=== PATIENT | female | born 1960 | race Caucasian/White ===

== ENCOUNTER 2017-01-11 19:44 | Emergency (ER) | payer SELFPAY ==
[2017-01-11 20:19] LABS: #Basophils 0.1 thou/uL (0.0-0.2); #Lymphocytes 3.2 thou/uL (1.20-3.40); #Monocytes 0.4 thou/uL (0.11-0.59); #Neutrophils 5.2 thou/uL (1.40-6.50); %Basophils 1.2 % (0.0-1.0); %Eosinophils 0.5 % (0.0-10.0); %Lymphocytes 35.6 % (21.0-51.0); %Monocytes 4.4 % (0.0-10.0); Hematocrit 43.5 % (36.0-47.0); Mean Platelet Volume 6.2 fL (7.4-10.4); Red Blood Cell (RBC) Count 4.42 mill/uL (4.20-5.40); White Blood Cell (WBC) Count 8.9 thou/uL (4.8-10.8)
[2017-01-11 20:41] LABS: Acetaminophen Less than 6.0 mcg/mL (10.0-30.0); Salicylate Less than 8.0 mg/dL (15.0-30.0)
[2017-01-11 20:45] LABS: ALT (SGPT) 13 U/L (8-55); AST (SGOT) 22 U/L (5-34); Alkaline Phosphatase 68 U/L (40-150); Anion Gap 22 mmol/L (10-20); BUN (Urea Nitrogen) 16 mg/dL (9.8-20.1); Bilirubin, Total 0.5 mg/dL (0.2-1.2); Calc. Creatinine Clearance 0 mL/min (70-130); Calcium 9.3 mg/dL (7.8-10.44); Carbon Dioxide 24 mmol/L (22-29); Chloride 91 mmol/L (98-107); Estimated GFR-MDRD Greater than 90; Globulin 3.2 g/dL (2.4-3.5); Lipase 30 U/L (8-78); Protein, Total 7.4 g/dL (6.0-8.3)
[2017-01-11] MEDS ORDERED: Ondansetron HCl/PF 4 MG/2 ML Vial ONE (21:11)
[2017-01-12] MEDS ORDERED: Ondansetron HCl/PF 4 MG/2 ML Vial ONE ×3 (02:38→06:22)
[2017-01-12] MEDS ORDERED: Lorazepam 2 MG/ML VIAL ONE (06:22)
[2017-01-12 07:56] LABS: Bilirubin Negative (Negative); Blood, Urine Trace (Negative); Glucose, Urine (Dipstick) Negative (Negative); Ketone, Urine Trace mg/dL (Negative); Nitrite Positive (Negative); Protein, Urine (Dipstick) Negative (Neg-Trace)
[2017-01-12 08:04] LABS: Bacteria/HPF 4+ HPF (None Seen); Hyaline Casts/LPF 0-3 HYALINE CAST LPF (0-3 Hyaline); RBC/HPF 0-3 HPF (0-3); Squamous Epithelial None Seen HPF (0-3)
[2017-01-12 08:14] LABS: Yeast-All Forms None Seen HPF (None Seen)
[2017-01-12] MEDS ORDERED: Ciprofloxacin 500 MG TAB ONE (08:17)
[2017-01-12 08:32] LABS: Amphetamine Not Detected (NotDetected); Methadone Not Detected (NotDetected); Methamphetamine Not Detected (NotDetected)
== END 2017-01-11 23:59 | disposition home or self-care (01) ==
LOC: ERS 19:44
DX: F10.129 Alcohol abuse with intoxication, unspecified (principal); K29.70 Gastritis, unspecified, without bleeding; I10 Essential (primary) hypertension; F41.9 Anxiety disorder, unspecified; F32.9 Major depressive disorder, single episode, unspecified; Y90.0 Blood alcohol level of less than 20 mg/100 ml; Z79.899 Other long term (current) drug therapy
CPT/HCPCS: 36415; 80053; 80306; 80307; 81003; 81015; 82550; 83690; 85025; 93005; 96374; 96375; 96376; J2405

== ENCOUNTER 2017-04-22 09:06 | Inpatient (IN) | payer SELFPAY ==
[2017-04-22 09:48] LABS: #Basophils 0.1 thou/uL (0.0-0.2); #Lymphocytes 1.4 thou/uL (1.20-3.40); #Monocytes 0.1 thou/uL (0.11-0.59); %Basophils 0.8 % (0.0-1.0); %Eosinophils 0.1 % (0.0-10.0); %Lymphocytes 18.1 % (21.0-51.0); %Monocytes 1.4 % (0.0-10.0); %Neutrophils 79.6 % (42.0-75.0); Hemoglobin 14.3 g/dL (12.0-16.0); Mean Corpuscular Hemoglobin 34.7 pg (27.0-31.0); Mean Platelet Volume 6.2 fL (7.4-10.4); Platelet Count 391 thou/uL (130-400); Red Blood Cell (RBC) Count 4.12 mill/uL (4.20-5.40); White Blood Cell (WBC) Count 7.5 thou/uL (4.8-10.8)
[2017-04-22 10:05] LABS: ALT (SGPT) 12 U/L (8-55); AST (SGOT) 23 U/L (5-34); Albumin 4.6 g/dL (3.5-5.0); Alcohol 41 mg/dL (Less than 10); Alkaline Phosphatase 84 U/L (40-150); Anion Gap 27 mmol/L (10-20); BUN (Urea Nitrogen) 5 mg/dL (9.8-20.1); Bilirubin, Total 0.9 mg/dL (0.2-1.2); Calc. Creatinine Clearance 0 mL/min (70-130); Calcium 10.2 mg/dL (7.8-10.44); Carbon Dioxide 17 mmol/L (22-29); Chloride 94 mmol/L (98-107); Estimated GFR-MDRD Greater than 90; Globulin 3.2 g/dL (2.4-3.5); Glucose 134 mg/dL (70-105); Potassium 3.8 mmol/L (3.5-5.1); Protein, Total 7.8 g/dL (6.0-8.3); Sodium 134 mmol/L (136-145)
[2017-04-22] MEDS ORDERED: Lorazepam 2 MG/ML VIAL ONE ×2 (11:30→16:33)
[2017-04-22] MEDS ORDERED: ISOVUE-370 76%-LOCM 1 ML ONE (11:41)
[2017-04-22] MEDS ORDERED: Multivitamins, Adult 10 ML, Thiamine HCl 100 MG, Folic Acid 1 MG in Dextrose 5 %-0.45 %... IV ONE (12:00)
[2017-04-22 12:44] LABS: INR-International Normal Ratio 1.1; PTT 27.5 SEC (22.9-36.1); Prothrombin Time 14.4 SEC (12.0-14.7)
[2017-04-22 13:03] LABS: CKMB 0.8 ng/mL (0-6.6); Troponin I Less than 0.010 ng/mL (< 0.028)
[2017-04-22] MEDS ORDERED: Promethazine HCl 25 MG/ML VIAL ONE (13:08)
--- NOTE | 2017-04-22 13:13 | CT ---
CT ABDOMEN AND PELVIS WITH IV CONTRAST: INDICATIONS: History of alcohol withdrawal, possible pancreatitis, and vaginal bleeding. FINDINGS: The lung bases are clear. There is mild fatty infiltration of the liver. The visualized pancreas appears within normal limits. There are stable calcifications seen near the uncinate process, which may reflect sequela of prior pancreatitis. The kidneys and spleen appear within normal limits. No free fluid is evident. There is a circumaortic left renal vein. Unopacified large and small bowel appear unremarkable. There is no evidence of obstruction. The xiang endix is not definitely visualized; however, there are no secondary signs for appendicitis. There is circumferential thickening involving the cervix, with a large hypodense mass seen involving the entirety of the uterus. Findings are suspicious for possible malignancy. No enlarged lymph nodes are evident. There is scattered degenerative and osteoarthritic change. There is some osseous necrosis involving the right femoral head without evidence of subchondral collapse. IMPRESSION: 1. Hypodense lesion involving the cervix with a prominent heterogeneous mass involving the near enti rety of the uterus. Findings are suspicious for possible cervical or endometrial malignancy. Recomm end correlation with direct visualization and consideration for cervical or endometrial biopsy. Pelv ic ultrasound may be helpful for improved characterization. 2. No CT evidence to suggest active pancreatitis. There are stable calcifications within the pancre atic head, which may reflect sequela of chronic pancreatitis. 3. Mild fatty infiltration of the liver. 4. Small hiatal hernia. 5. 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 CODE T POS: [facility]
[2017-04-22] MEDS ORDERED: Dextrose 50% Abboject 50 ML SYRINGE ONE (13:28)
[2017-04-22] MEDS ORDERED: chlordiazePOXIDE HCl 25 MG CAP ONE (14:11)
[2017-04-22 14:19] LABS: Bilirubin Negative (Negative); Blood, Urine Large (Negative); Clarity CLEAR (Clear); Glucose, Urine (Dipstick) 250 mg/dL (Negative); Leukocyte Small (Negative); Nitrite Negative (Negative); Protein, Urine (Dipstick) Negative (Neg-Trace); Specific Gravity, Urine 1.023 (1.002-1.036); Urobilinogen 0.2 mg/dL (0.2-1.0); pH, Urine 7.5 (5.0-9.0)
[2017-04-22 14:20] LABS: Bacteria/HPF None Seen HPF (None Seen); Hyaline Casts/LPF 0-3 HYALINE CAST LPF (0-3 Hyaline); RBC/HPF GREATER THAN 50-TNTC HPF (0-3); Squamous Epithelial None Seen HPF (0-3); WBC/HPF 21-50 HPF (0-3)
[2017-04-22] MEDS ORDERED: Ondansetron ODT 4 MG TAB PO PRN (17:10)
[2017-04-22] MEDS ORDERED: Ondansetron HCl/PF 4 MG/2 ML Vial IVP PRN (17:10)
[2017-04-22] MEDS ORDERED: Lorazepam 1 MG TAB PO PRN (17:10)
[2017-04-22] MEDS ORDERED: hydrALAZINE 20 MG/ML VIAL SLOW IVP PRN (17:49)
[2017-04-22] MEDS ORDERED: Diazepam 5 MG TAB PO PRN (18:10)
[2017-04-22] MEDS ORDERED: Diazepam 5 MG TAB PO SCH (18:15)
[2017-04-22] MEDS ORDERED: Thiamine HCl 200 MG/2 ML VIAL IM SCH (18:15)
[2017-04-22 20:19] LABS: Medtox Reader # READER 4
[2017-04-22 20:20] LABS: Amphetamine Not Detected (NotDetected); Barbiturates Screen Not Detected (NotDetected); Benzodiazepine Screen Detected (NotDetected); Cocaine Metabolite Screen Not Detected (NotDetected); Medtox Control Line Valid? VALID (VALID); Methadone Not Detected (NotDetected); Methamphetamine Not Detected (NotDetected); Opiate Screen Not Detected (NotDetected); Oxycodone Screen Not Detected (NotDetected); Phencyclidine (PCP) Not Detected (NotDetected); THC/Cannabinoid Screen Not Detected (NotDetected); Tricyclic Screen Not Detected (NotDetected)
--- NOTE | 2017-04-22 21:03 | RAD ---
LEFT HIP TWO VIEWS 04/22/17 HISTORY: CT evidence of femoral head necrosis. COMPARISON: None. CORRELATION: CT 04/22/17. FINDINGS: Two views of the left hip are unremarkable. Cortical margin is maintained. Hip joint space is preserv ed. IMPRESSION: Unremarkable two views left hip. Note, the finding on the previous CT was in the right femoral head and not the left femoral head. Bet ter interrogation with MRI is recommended. POS: [facility]
--- NOTE | 2017-04-22 21:49 | RAD ---
TWO VIEWS RIGHT HIP 04/22/17 HISTORY: Possible necrosis noted on recent CT. COMPARISON: None. CORRELATION: CT 04/22/17. FINDINGS/IMPRESSION: Contour of the femoral head is maintained and the joint spaces is preserved. Recent CT finding is dif ficult to assess radiographically. Nonemergent MRI can be performed. POS: [facility]
[2017-04-22] MEDS: Sodium Chloride 0.9% 1,000 ML IV SCH ×2 (23:57)
--- NOTE | 2017-04-23 01:02 | HP-2 ---
DATE OF ADMISSION: 04/22/2017 CODE STATUS: FULL. PRIMARY CARE PHYSICIAN: Rosalio hunter. ATTENDING: Asher Crews M.D. RESIDENT: Maicol Fuentes D.O. HISTORIAN: Patient. CHIEF COMPLAINT: Vaginal bleeding. HISTORY OF PRESENT ILLNESS: The patient presents to the emergency room with complaint of 2 days of h eavy vaginal bleeding. She has been menopausal for approximately 10 years with no prior history of s potting or bleeding. There was no associated cramping until this afternoon. The patient denies dizz iness or weakness associated with the bleeding and states that she bleeding enough to fill at least 1 pad per hour. Additionally, she complains of 4 days of nausea and vomiting with diarrhea. Neither the vomitus or diarrhea is bloody. She denies associated symptoms such as malaise, fever, or any oth er known inciting causes. Additionally, the patient is an alcoholic. She does state that she typica lly drinks a pint of whiskey per day. She has been approximately 24 hours since her last drink. She has detoxed from alcohol before and denies history of seizure during previous detoxification. In e emergency room, the patient was given Librium and Ativan to control withdrawal symptoms. PAST MEDICAL HISTORY: Includes hypertension, alcohol abuse. PAST SURGICAL HISTORY: None. ALLERGIES: No known drug allergies. MEDICATIONS: Lisinopril 20 mg daily. FAMILY HISTORY: Maternal, breast cancer; paternal, unknown. SOCIAL HISTORY: The patient does not smoke. She drinks approximately 1 pint of whiskey per day. Dr andrade: None. REVIEW OF SYSTEMS: General: Denies fever, chills, change in appetite, night sweats, fatigue. HEENT : Denies any vision change or eye pain, nasal congestion. Respiratory: Denies any cough, congestio n, shortness of breath. Cardiovascular: Denies any chest pain, palpitations. Gastrointestinal: Ad mits to nausea, vomiting, diarrhea without blood. Genitourinary: Denies incontinence, dysuria. Adm its to heavy vaginal bleeding, bright red blood. Skin: No rashes or lesions. Musculoskeletal: Den ies any pain or tenderness. Neurologic: Denies any weakness or numbness. Psychiatric: Denies anxi ety or depression. PHYSICAL EXAMINATION: VITAL SIGNS: Blood pressure 178/111, pulse 100, respiratory rate 18, T-max 98.2, pulse ox 94% on anila m air, current weight approximately 50 kilograms. GENERAL: The patient is alert and oriented x3, in no apparent distress, is well-nourished, and appro priately interactive. HEENT: PERRLA, EOMI. Conjunctivae within normal limits. No scleral icterus. NECK: Supple and without lymphadenopathy. CARDIOVASCULAR: Tachycardic without murmur. RESPIRATORY: Normal effort. Clear to auscultation bilateral without retractions. SKIN: Warm and dry. There is no jaundice. Loss of turgor. ABDOMEN: Soft and tender. Liver is not palpable. Bowel sounds in all 4 quadrants. No masses or di stention. EXTREMITIES: No clubbing or cyanosis. NEUROLOGIC: No focal neurological deficits. Cranial nerves are grossly intact. LABORATORY DATA: CBC: Hemoglobin 14.3, hematocrit 40.8, white count 7.5, platelets 391, MCV is 94, 79.6% neutrophils. CMP: Sodium 134, potassium 3.4, chloride 94, bicarbonate 17, BUN is 5, creatinin e 0.64, glucose 134, calcium 10.2, total serum protein 7.8, albumin 4.6, total bilirubin 0.9, AST 23, ALT 12, alkaline phosphatase 84. PT 14.4, INR 1.1, PTT 27.1. CK-MB 0.8. Troponins are negative. Lipase is 25. TSH is 1.94. UA specific gravity 1.023, blood large, protein negative, leukocyte jane rase small, nitrites negative, ketones negative, glucose 250, rbc's too numerous to count, wbc's 21 t o 50, bacteria negative. EKG shows sinus tachycardia. IMAGING: CT of pelvis shows a large cervical and uterine mass with possible malignancy, small calcif ication of the pancreas without obvious pancreatitis, osteonecrosis of the right femoral head, hiatal hernia and a fatty infiltrated liver. ASSESSMENT AND PLAN: 1. Alcohol withdrawal, ZENON protocol. The patient is currently given a banana bag in the ER, do p.r. n. Ativan while in ZENON protocol. 2. Dehydration. This is likely secondary to her diarrhea and vomiting. After banana bag, IVF jailyn l saline at 150. Repeat CBC in the morning. Given the patient's vaginal blood loss, hemoglobin 14.3 is likely to be concentrated, her actual hemoglobin is likely to be considerably lower after she is appropriately fluid resuscitated. 3. Tachycardia secondary to volume status, observe on tele, we will get fluid resuscitation. 4. Vaginal bleeding with mass. Consider GUEST SERVICE MANAGER consult. Repeat CBC in the morning. This is likely wi ll need to be worked up outpatient. 5. Hypertensive urgency. The patient is asymptomatic. Give her home lisinopril and hydralazine p.r .n.
[2017-04-23 02:13] VITALS: BMI 20.5
[2017-04-23] MEDS ORDERED: Diazepam 5 MG TAB PO PRN (04:00)
[2017-04-23 05:23] LABS: #Basophils 0.1 thou/uL (0.0-0.2); #Lymphocytes 1.5 thou/uL (1.20-3.40); #Monocytes 0.4 thou/uL (0.11-0.59); #Neutrophils 5.7 thou/uL (1.40-6.50); %Basophils 0.7 % (0.0-1.0); %Eosinophils 0.5 % (0.0-10.0); %Lymphocytes 19.1 % (21.0-51.0); %Monocytes 5.2 % (0.0-10.0); %Neutrophils 74.5 % (42.0-75.0); Hemoglobin 13.7 g/dL (12.0-16.0); Mean Corpuscular HGB CONC 33.8 g/dL (32.0-36.0); Mean Corpuscular Hemoglobin 34.1 pg (27.0-31.0); Mean Platelet Volume 6.3 fL (7.4-10.4); Platelet Count 296 thou/uL (130-400); RBC Distribution Width 12.3 % (11.5-14.5); White Blood Cell (WBC) Count 7.6 thou/uL (4.8-10.8)
[2017-04-23 05:33] LABS: ALT (SGPT) 11 U/L (8-55); AST (SGOT) 19 U/L (5-34); Albumin 4.2 g/dL (3.5-5.0); Alkaline Phosphatase 75 U/L (40-150); Anion Gap 13 mmol/L (10-20); BUN (Urea Nitrogen) 7 mg/dL (9.8-20.1); Bilirubin, Total 1.3 mg/dL (0.2-1.2); Calc. Creatinine Clearance 77 mL/min (70-130); Calcium 9.7 mg/dL (7.8-10.44); Carbon Dioxide 27 mmol/L (22-29); Chloride 96 mmol/L (98-107); Estimated GFR-MDRD Greater than 90; Globulin 3.1 g/dL (2.4-3.5); Glucose 96 mg/dL (70-105); Potassium 3.3 mmol/L (3.5-5.1); Protein, Total 7.3 g/dL (6.0-8.3); Sodium 133 mmol/L (136-145)
[2017-04-23] MEDS: Sodium Chloride 0.9% 1,000 ML IV SCH ×3 (05:56→21:59)
--- NOTE | 2017-04-23 06:14 | PDOC.FM ---
- Subjective Subjective: Jazmine Spear is doing well this morning, she has no complaints other than being tired this morning, she denies any hallucinations, vision changes, n/v/d/abd pain, seizures. - Objective MAR Reviewed: Yes Vital Signs & Weight: Vital Signs (12 hours) Temp Pulse Resp BP Pulse Ox 04/23/17 05:30 71 156/94 H 04/23/17 04:45 97.9 F 92 16 176/119 H 97 04/23/17 02:00 133/84 04/22/17 20:53 98.0 F 105 H 18 171/114 H 97 04/22/17 20:50 98.0 F 105 H 18 97 Weight Weight 52.526 kg Result Diagrams: 04/23/17 04:38 04/23/17 04:38 Radiology Reviewed by me: Yes <Luis E Duarte - Last Filed: 04/23/17 09:44> - Objective Vital Signs & Weight: Vital Signs (12 hours) Temp Pulse Pulse Pulse Resp BP BP 04/23/17 11:52 98.4 F 109 H 16 04/23/17 09:15 88 93 183/119 H 04/23/17 08:58 184/119 H 04/23/17 07:56 97.3 F L 80 20 04/23/17 05:30 71 04/23/17 04:45 97.9 F 92 16 04/23/17 02:00 BP BP Pulse Ox 04/23/17 11:52 153/100 H 98 04/23/17 09:15 183/121 H 04/23/17 08:58 04/23/17 07:56 184/119 H 98 04/23/17 05:30 156/94 H 04/23/17 04:45 176/119 H 97 04/23/17 02:00 133/84 Weight Weight 52.526 kg I&O: 04/22/17 04/23/17 04/24/17 06:59 06:59 06:59 Intake Total 812 Balance 812 Result Diagrams: 04/23/17 04:38 04/23/17 04:38 <Ivette Fitzgerald - Last Filed: 04/23/17 13:01> Phys Exam - Physical Examination Constitutional: NAD HEENT: moist MMs, sclera anicteric Neck: supple, full ROM Respiratory: no wheezing, no rales, no rhonchi, clear to auscultation bilateral Cardiovascular: RRR, no significant murmur, no rub Gastrointestinal: soft, non-tender, no distention Musculoskeletal: no edema Neurological: non-focal, moves all 4 limbs Psychiatric: normal affect, A&O x 3 <Luis E Duarte - Last Filed: 04/23/17 09:44> Dx/Plan (1) Alcohol withdrawal Code(s): F10.239 - ALCOHOL DEPENDENCE WITH WITHDRAWAL, UNSPECIFIED Status: Acute Plan: hx of 4 days of nausea/vomiting and diarrhea pt endorses drinking pint of whiskey a day, on admission it had been approximately 24 hours since last drink She has a history of detoxification from alcohol in the past and did not have any seizures/hallucinosis -pt received ativan and librium in the ER to control withdrawal symptoms Plan: Continue ASE protocol, patient received banana bag Continue IVFs 150 ml/hr, monitor vitals and symptoms closely (2) Dehydration Code(s): E86.0 - DEHYDRATION Status: Acute Plan: Likely secondary to withdrawal symptoms Continue IVFs NS at 150 mL/hr (3) Abnormal uterine bleeding Code(s): N93.9 - ABNORMAL UTERINE AND VAGINAL BLEEDING, UNSPECIFIED Status: Acute Plan: Hemoglobin is 13.7 this morning, down for 14.3 Will continue to monitor Hb and bleeding -May need OP Airbrush Painter Work-up (4) Hypertensive urgency Code(s): I16.0 - HYPERTENSIVE URGENCY Status: Acute Plan: Will continue Home dose of Lisinopril with PRN hydralazine for BPs over 180 systolic BP this morning is 156/94 <Luis E Daurte - Last Filed: 04/23/17 09:44> Attending Addendum - Attending Addendum I personally evaluated the patient and discussed the management with Dr. Duarte. I agree with the History, Examination, Assessment and Plan documented above with any addition or exceptions noted below. The patient continues to have vaginal bleeding will consult gynecology for evaluation of uterine mass. Check H/H this afternoon. Regarding alcohol withdrawal, patient is not having tremors, hallucinations, seizures. Continue to monitor. <Ivette Fitzgerald - Last Filed: 04/23/17 13:01>
[2017-04-23] MEDS ORDERED: Potassium Chloride 20 MEQ TAB PO SCH (06:15)
--- NOTE | 2017-04-23 08:21 | ULT ---
GALLBLADDER ULTRASOUND: History: Right upper quadrant pain, ethanol abuse. FINDINGS: Real-time images of the right upper quadrant demonstrates a normal appearing gallbladder. There is so me minimal sludge present but no stones. Common duct and immediate extrahepatic portion is slightly d ilated at 6-7 mm. No intrahepatic ductal dilatation is noted. Liver parenchyma is of mild increased e chogenicity. Right kidney is normal in size and not obstructed. The pancreas is partially obscured. IMPRESSION: Suggestion of some fatty changes of the liver with a small amount of gallbladder sludge. The common d uct appears borderline in size. POS: [facility]
[2017-04-23] MEDS: Folic Acid 1 MG TAB PO SCH (08:58)
[2017-04-23] MEDS: Multivitamin W/ Minerals 1 TAB PO SCH (08:58)
[2017-04-23] MEDS: Magnesium Oxide 400 MG TAB PO SCH (08:58)
[2017-04-23] MEDS: Lisinopril 10 MG TAB PO SCH ×2 (08:58→21:59)
[2017-04-23] MEDS ORDERED: Enoxaparin Sodium 40 MG/0.4 ML SYRINGE SC SCH (09:00)
--- NOTE | 2017-04-23 11:19 | ULT ---
TRANSABDOMINAL AND TRANSVAGINAL PELVIC ULTRASOUND: HISTORY: Vaginal bleeding. Dysfunctional uterine bleeding. CORRELATION: Correlation is made with a CT scan from 04/22/2017. FINDINGS: The uterus measures 10 x 6.7 x 6.8 cm. The endometrium measures 1.4 cm. There is a heterogeneous co mplex mass in the uterus, measuring about 7.7 cm, with solid and cystic components, corresponding to the finding on the CT scan. The ovaries are not visualized. No free fluid is seen. IMPRESSION: Large complex mass in the uterus. The differential diagnosis includes a degenerating fibroid versus malignancy. A gynecologic consultation is recommended. POS: [facility]
--- NOTE | 2017-04-23 12:28 | PDOC.EVN ---
Event Note - Event Note Event Note: OBGYN Faculty Consultation Requesting MD: Luis E Mayer Reason for consult: Postmenopausal vaginal bleed I was just contacted by phone by the resident field crop harvest contractor regarding Ms Spear (@[id number]) . This patient was admotted 04/22/17 with ETOH dependancy/withdrawel symptoms who alos was noted to have vaginal bleeding. I was consulted for the vag bleed history. I reviewed the case with Dr Mayer in detail. Past Medical HX: Hypertension Social: ETOH=whisky use, no tobacco. No drug use. Meds: Lisinopril QD (20mg) Allergies: None Lab data: Last hemoglobin: 13.7 (was 14.3), normal platelets at 296 LFTS were normal UA with glucose noted STUDIES: CT and pelvic ultrasound both with findings of a 7cm complex uterine mass suspicious for degenerating fibroid vs other. Sono with ES of 1.4cm. Physical exam: pending arrival to 2SE (CABLE INSTALLATION TECHNICIAN floor) procedure room for speculum examination. Assessment: Postmenopausal VB, ETOH withdrawel (RX with librium/ativan). Plan: 1. TVU/CT pelvis done. Findings as per HPI: complex questionable uterine mass vs cervical 2. Exam via speculum pending on 2SE 3. Will attempt EMB unless gross cervical disease noted. I contacted the ER to see if they had a pap container (thin prep) but they do not. If gross cervical disease noted, will need cervical biopsy. 4. Awaiting patient arrival to 2SE. 5. Provera 10mg po TID x 2 days, then BID for 7 days to decrease VB for now. 6. No need to transfuse at this time. We will hold off on IV estrogen as etiology of VB not clear with thickened ES on sono.
--- NOTE | 2017-04-23 13:29 | PDOC.EVN ---
Event Note - Event Note Event Note: PROCEDURE NOTE (EMB) Taken at 1230: After informed consent, patient taken to 2SE procedure room for EMB. EMB done under sterile technique after external cervical swabbing with betadine swabs. Dr Mayer and Richard performed EMD X 4 passess with tissue seen in jar. Sounds to 7-8cm. No gross cervical lesions seen. Blood in vagina abpout 5ml pre-EMB noted. No complications. Patient tolerated procedure very well. Time for BX: 5 minutes. Sedation: none No vag packs left in. Order placed for tissue request. NOTE: patient states she had a pap 1.5 mos ago at [facility] We will try to get that report from them. Plan: provera po as ordered/recommended (10,mg TID x 2 days, then BIB x 7 days) .
[2017-04-23] MEDS: medroxyPROGESTERone Acetate 5 MG TAB PO SCH ×2 (15:36→21:59)
[2017-04-24 01:23] LABS: Chlamydia by PCR Not Detected (NotDetected); GC by PCR Not Detected (NotDetected)
[2017-04-24] MEDS: Sodium Chloride 0.9% 1,000 ML IV SCH (05:39)
--- NOTE | 2017-04-24 05:45 | PDOC.EVN ---
Event Note - Event Note Event Note: Skid Adzer note: EMB pending. Will await results and/or follow as outpatient.
--- NOTE | 2017-04-24 06:00 | PDOC.FM ---
- Subjective Subjective: Jazmine Spear is doing well this morning, seen at bedside. She states that she is doing alright, has continued to having vaginal bleeding. She denies any headache, vision changes, hallucinosis, chest pain, dyspnea, n/v/abd pain, dysuria. Patient does express concern that she is too weak to perform ADLs at home, as she lives by herself. - Objective MAR Reviewed: Yes Vital Signs & Weight: Vital Signs (12 hours) Temp Pulse Resp BP BP Pulse Ox 04/24/17 04:27 98.3 F 76 14 147/95 H 96 04/24/17 00:06 98.3 F 84 20 160/106 H 96 04/23/17 21:59 153/98 H 04/23/17 20:14 98.3 F 84 20 98 04/23/17 19:47 98.8 F 92 16 153/98 H 98 Weight Weight 52.526 kg I&O: 04/22/17 04/23/17 04/24/17 06:59 06:59 06:59 Intake Total 2967 Balance 2967 Result Diagrams: 04/24/17 06:09 04/24/17 06:09 <Luis E Duarte - Last Filed: 04/24/17 09:04> - Objective Vital Signs & Weight: Vital Signs (12 hours) Temp Pulse Pulse Pulse Resp BP BP 04/24/17 11:40 98.6 F 100 16 04/24/17 11:03 105 H 105 H 161/102 H 04/24/17 09:42 151/100 H 04/24/17 08:00 98.4 F 70 16 04/24/17 07:33 98.4 F 70 16 04/24/17 04:27 98.3 F 76 14 BP BP Pulse Ox 04/24/17 11:40 149/94 H 97 04/24/17 11:03 186/107 H 04/24/17 09:42 04/24/17 08:00 99 04/24/17 07:33 151/100 H 99 04/24/17 04:27 147/95 H 96 Weight Weight 52.526 kg I&O: 04/23/17 04/24/17 04/25/17 06:59 06:59 06:59 Intake Total 2967 Balance 2967 Result Diagrams: 04/24/17 06:09 04/24/17 06:09 <LiaIvette taylor - Last Filed: 04/24/17 12:58> Phys Exam - Physical Examination Constitutional: NAD HEENT: moist MMs, sclera anicteric Neck: no JVD, supple, full ROM Respiratory: no wheezing, no rales, no rhonchi, clear to auscultation bilateral Cardiovascular: RRR, no significant murmur, no rub Gastrointestinal: soft, non-tender, no distention Musculoskeletal: no edema Neurological: non-focal, moves all 4 limbs Psychiatric: A&O x 3 Deviation from normal: flat affect, no change from prior exam <Luis E Duarte - Last Filed: 04/24/17 09:04> Dx/Plan (1) Alcohol withdrawal Code(s): F10.239 - ALCOHOL DEPENDENCE WITH WITHDRAWAL, UNSPECIFIED Status: Acute Plan: hx of 4 days of nausea/vomiting and diarrhea pt endorses drinking pint of whiskey a day, on admission it had been approximately 24 hours since last drink She has a history of detoxification from alcohol in the past and did not have any seizures/hallucinosis -pt received ativan and librium in the ER to control withdrawal symptoms 04/23/17 Continue ASE protocol, patient received banana bag Continue IVFs 150 ml/hr, monitor vitals and symptoms closely 04/24/17 Patient has not experienced any symptoms of DTs or withdrawal hallucinosis According to patient, it has been >4 days since her last alcoholic beverage Likely ready for discharge today with close follow up with applications programmer for post menopausal uterine bleeding (2) Dehydration Code(s): E86.0 - DEHYDRATION Status: Acute Plan: Likely secondary to withdrawal symptoms Clinically, patient is euvolemic, will stop IVFs this morning as patient is tolerating PO (3) Abnormal uterine bleeding Code(s): N93.9 - ABNORMAL UTERINE AND VAGINAL BLEEDING, UNSPECIFIED Status: Acute Plan: Hemoglobin is 13.7 this morning, down for 14.3 Will continue to monitor Hb and bleeding, repeat CBC this morning sleep lab technician hospitalist consulted yesterday (Richard), appreciate recs -EMB performed yesterday (Gerald/Richard), path results pending -requesting pap records from [facility] -per CUTTER OPERATOR recs, Provera 10 mg TID for 2 days total followed by Provera 10 mg BID for 5 days (4) Hypertensive urgency Code(s): I16.0 - HYPERTENSIVE URGENCY Status: Acute Plan: Will continue Home dose of Lisinopril with PRN hydralazine for BPs over 180 systolic BP this morning is 147/95, increasing home dose of lisinopril to 20 mg BID - Plan Plan: Reevaluation by PT/OT, as patient feels she is too weak to go back home and perform her normal ADLs, encourage ambulation, consult walking program. Patient will need follow up with [facility] and clinical esthetician <Luis E Duarte - Last Filed: 04/24/17 09:04> Attending Addendum - Attending Addendum I personally evaluated the patient and discussed the management with Dr. Duarte. I agree with the History, Examination, Assessment and Plan documented above with any addition or exceptions noted below. The patient is asymptomatic from an alcohol withdrawal standpoint. She is having worsening diarrhea and has been on antibiotics recently. Will check stool studies. Pt still has vaginal bleeding which she states is not much improved. Continue current management. Monitor h/h. Continue provera. Awaiting biopsy results. <Ivette Fitzgerald - Last Filed: 04/24/17 12:58>
[2017-04-24 06:22] LABS: #Eosinphils 0.1 thou/uL (0.0-0.7); #Lymphocytes 1.2 thou/uL (1.20-3.40); #Monocytes 0.3 thou/uL (0.11-0.59); #Neutrophils 3.9 thou/uL (1.40-6.50); %Basophils 0.6 % (0.0-1.0); %Lymphocytes 21.2 % (21.0-51.0); %Monocytes 5.6 % (0.0-10.0); %Neutrophils 71.6 % (42.0-75.0); Hemoglobin 12.5 g/dL (12.0-16.0); Mean Corpuscular HGB CONC 33.8 g/dL (32.0-36.0); Mean Corpuscular Hemoglobin 34.6 pg (27.0-31.0); Mean Platelet Volume 6.5 fL (7.4-10.4); Platelet Count 231 thou/uL (130-400); RBC Distribution Width 12.2 % (11.5-14.5); Red Blood Cell (RBC) Count 3.62 mill/uL (4.20-5.40); White Blood Cell (WBC) Count 5.5 thou/uL (4.8-10.8)
[2017-04-24 06:40] LABS: Anion Gap 12 mmol/L (10-20); BUN (Urea Nitrogen) 7 mg/dL (9.8-20.1); Calc. Creatinine Clearance 81 mL/min (70-130); Calcium 9.3 mg/dL (7.8-10.44); Carbon Dioxide 22 mmol/L (22-29); Chloride 105 mmol/L (98-107); Estimated GFR-MDRD Greater than 90; Glucose 85 mg/dL (70-105); Potassium 3.5 mmol/L (3.5-5.1); Sodium 135 mmol/L (136-145)
--- NOTE | 2017-04-24 08:10 | PDOC.EVN ---
Event Note - Event Note Event Note: Lab check today: Hct 37 this am. Continue provera oral as recommended.
[2017-04-24] MEDS: Lisinopril 20 MG TAB PO SCH ×2 (09:42→21:21)
[2017-04-24] MEDS: Multivitamin W/ Minerals 1 TAB PO SCH (09:43)
[2017-04-24] MEDS: Magnesium Oxide 400 MG TAB PO SCH (09:43)
[2017-04-24] MEDS: medroxyPROGESTERone Acetate 5 MG TAB PO SCH ×3 (09:43→21:22)
[2017-04-24] MEDS: Folic Acid 1 MG TAB PO SCH (09:43)
[2017-04-24] MEDS: Ibuprofen 600 MG TAB PO PRN (21:21)
--- NOTE | 2017-04-25 06:16 | PDOC.FM ---
- Subjective Subjective: Jazmine Spear is doing okay this morning, she denies any acute events overnight. She has no complaints. Vaginal bleeding has decreased. Patient was notified of biopsy results, Endometrial Carcinoma, Grade 2. Expressed importance of seeing a gyncology oncologist soon. Dr. Vergara is [facility] was recommended by Dr. Ramos, bean weigher hospitalist. Questions were answered. - Objective MAR Reviewed: Yes Vital Signs & Weight: Vital Signs (12 hours) Temp Pulse Resp BP BP Pulse Ox 04/25/17 05:45 145/99 H 04/25/17 04:00 98.3 F 75 16 145/99 H 97 04/25/17 00:48 98.4 F 89 16 151/97 H 89 L 04/25/17 00:02 151/97 H 04/24/17 21:21 184/114 H 04/24/17 21:20 98.7 F 92 16 184/117 H 94 L 04/24/17 19:35 98.4 F 89 16 184/117 H 92 L Weight Weight 55.837 kg I&O: 04/23/17 04/24/17 04/25/17 06:59 06:59 06:59 Intake Total 2967 1333 Balance 2967 1333 Result Diagrams: 04/24/17 06:09 04/24/17 06:09 <Luis E Duarte - Last Filed: 04/25/17 12:53> - Objective Vital Signs & Weight: Vital Signs (12 hours) Temp Pulse Resp BP BP Pulse Ox 04/25/17 16:00 167/111 H 04/25/17 15:50 98.3 F 104 H 20 167/111 H 97 04/25/17 12:02 154/105 H 04/25/17 12:00 98.2 F 103 H 20 154/105 H 95 04/25/17 08:05 98.2 F 103 H 20 163/107 H 93 L 04/25/17 07:50 97.4 F L 79 20 163/107 H 93 L Weight Weight 55.837 kg I&O: 04/24/17 04/25/17 04/26/17 06:59 06:59 06:59 Intake Total 2967 1333 840 Balance 2967 1333 840 Result Diagrams: 04/24/17 06:09 04/24/17 06:09 <Ivette Fitzgerald - Last Filed: 04/25/17 19:32> Phys Exam - Physical Examination Constitutional: NAD HEENT: moist MMs, sclera anicteric Neck: no JVD, supple, full ROM Respiratory: no wheezing, no rales, no rhonchi, clear to auscultation bilateral Cardiovascular: RRR, no significant murmur, no rub Gastrointestinal: soft, non-tender, no distention Musculoskeletal: no edema, pulses present Neurological: non-focal, moves all 4 limbs Psychiatric: normal affect, A&O x 3 <GeraldLuis E - Last Filed: 04/25/17 12:53> Dx/Plan (1) Alcohol withdrawal Code(s): F10.239 - ALCOHOL DEPENDENCE WITH WITHDRAWAL, UNSPECIFIED Status: Acute Plan: hx of 4 days of nausea/vomiting and diarrhea pt endorses drinking pint of whiskey a day, on admission it had been approximately 24 hours since last drink She has a history of detoxification from alcohol in the past and did not have any seizures/hallucinosis -pt received ativan and librium in the ER to control withdrawal symptoms 04/23/17 Continue ASE protocol, patient received banana bag Continue IVFs 150 ml/hr, monitor vitals and symptoms closely 04/24/17 Patient has not experienced any symptoms of DTs or withdrawal hallucinosis According to patient, it has been >4 days since her last alcoholic beverage Likely ready for discharge today with close follow up with rate examiner for post menopausal uterine bleeding 04/24/17 Patient has continued to be asymptomatic of DTs or alcoholic withdrawal We are now out of the window for DTs Patient ready for d/c today (2) Dehydration Code(s): E86.0 - DEHYDRATION Status: Resolved Plan: Tolerating PO, resolved (3) Abnormal uterine bleeding Code(s): N93.9 - ABNORMAL UTERINE AND VAGINAL BLEEDING, UNSPECIFIED Status: Acute Plan: photographic hand developer hospitalist consulted (Richard), appreciate recs -EMB performed 04/23/17 (Gerald/Richard), path results revealed Endometrial Carcinoma , grade 2. -[facility]ap [facility] from [facility] -per MANAGER BAKERY recs, Provera 10 mg TID for 2 days total followed by Provera 10 mg BID for 5 days -recommended patient see gynecology oncologist (Dr. Vergara recommended by Dr. Ramos ) (4) Hypertensive urgency Code(s): I16.0 - HYPERTENSIVE URGENCY Status: Acute Plan: Will continue Home dose of Lisinopril with PRN hydralazine for BPs over 180 systolic BP this morning is 145/99, added amlodipine 2.5 mg PO daily to regimen, will monitor - Plan Plan: Patient likely ready for d/c today with close f[facility] <Luis E Duarte - Last Filed: 04/25/17 12:53> Attending Addendum - Attending Addendum I personally evaluated the patient and discussed the management with Dr. Duarte. I agree with the History, Examination, Assessment and Plan documented above with any addition or exceptions noted below. The patient's vaginal bleeding is improved. The patient has no more diarrhea. The patient will be set up for MRI to further evaluate avascular necrosis of the hip noted on admission CT scan. Will likely not d/c today but anticipate discharge tomorrow. Pt's path returned and diagnosis of endometrial cancer has been given to the patient. She will be referred to voltage inspector/onc. <Ivette Fitzgerald - Last Filed: 04/25/17 19:32>
[2017-04-25] MEDS ORDERED: Gadobenate Dimeglumine 529 MG/1 ML (20ML VIAL) ONE (06:22)
[2017-04-25] MEDS ORDERED: Amlodipine 5 MG TAB PO SCH (06:30)
--- NOTE | 2017-04-25 08:10 | PDOC.EVN ---
Event Note - Event Note Event Note: EMB check this AM with endometrial carcinoma (endometriod), Grade 2. I have contacted Dr Mayer (Resident precision filer hand). We will notifiy her this AM and make arrangements for Dr Ambreen Vergara (Supervisor Poultry Hatchery Onc) referral in [place].
--- NOTE | 2017-04-25 08:50 | PDOC.EVN ---
Event Note - Event Note Event Note: Gynecology Consult Follow up At 0840 this AM, patient seen at bedside along with Dr Mayer and the patient's nurse. DX of endometrial CA was relayed to the patient. Grade reviewed with her (grade 2). Need for surgical staging and likely XRT also relayed to her. Chemo option also discussed pending final stage findings. Case management will assist with getting an appointment with Dr Vergara in the [place] or any other [facility] Mgr Onc first available. Questions answered.
[2017-04-25] MEDS: Folic Acid 1 MG TAB PO SCH (10:07)
[2017-04-25] MEDS: Lisinopril 20 MG TAB PO SCH ×2 (10:08→20:46)
[2017-04-25] MEDS: Magnesium Oxide 400 MG TAB PO SCH (10:08)
[2017-04-25] MEDS: medroxyPROGESTERone Acetate 5 MG TAB PO SCH ×3 (10:09→20:47)
[2017-04-25] MEDS: Multivitamin W/ Minerals 1 TAB PO SCH (10:09)
[2017-04-25] MEDS: Ibuprofen 600 MG TAB PO PRN ×2 (10:11→20:47)
--- NOTE | 2017-04-25 14:54 | DIS-2 ---
DATE OF ADMISSION: 04/22/2017 DATE OF DISCHARGE: 04/25/2017 RESIDENT: Luis E Duarte MD ADMITTING ATTENDING: Dr. Asher Crews. DISCHARGE ATTENDING: Dr. Fitzgerald. CONSULTATIONS: COLLECTIONS TECHNICIAN Hospitalist, Dr. Acosta Ramos on 04/23/2017. PROCEDURES: 1. Hip x-ray. Impression: Contour of the femoral head is maintained and the joint space is preserved. Recent CT finding is difficult to assess radiographically, nonemergent MRI can be performed. 2. CT abdomen and pelvis with contrast. Impression: Hypodense lesion involving the cervix with a prominent heterogeneous mass involving the near entirety of the uterus. Findings are suspicious for possible cervical cancer or endometrial malignancy. Recommend correlation with direct visualization and consideration for cervical or endometrial biopsy. Pelvic ultrasound may be helpful for improved characterization. Mild fatty infiltration of the liver, small hiatal hernia, osteonecrosis of the right femoral head without evidence of subchondral collapse. 3. Hip x-ray on 04/22/2017. Impression: Unremarkable two views of left hip. Note, the findings on the previous CTA was in the right femoral head and not the left femoral head, better interrogation with MRI is recommended. 4. Right upper quadrant gallbladder ultrasound. Impression: Some fatty changes of the liver with small amount of gallbladder sludge. Common duct appears borderline in size. 5. Pelvic/transvaginal ultrasound. Impression: Large complex mass in the uterus. 6. MRI of Right Hip: Low grade avascular necrosis of anterior right femoral head. Underlying marrow signal does appear to show some enhancement, therefore could be an area of resolving avascular necrosis. Punctate area of left femoral head suggestive of avascular necrosis without collapse. Gluteus medius tendinosis and partial tearing. Right semimembranosus tendon extensive partial tearing. DIFFERENTIAL DIAGNOSES: Includes degenerating fibroid versus malignancy. PRIMARY DIAGNOSES: 1. Alcohol withdrawal. 2. Postmenopausal bleeding. 3. Dehydration. 4. Tachycardia. 5. Hypertensive urgency. DISCHARGE MEDICATIONS: 1. Lisinopril 10 mg p.o. b.i.d. 2. Provera 10 mg p.o. b.i.d. for 5 days. DISCONTINUED MEDICATIONS: 1. ZENON protocol. 2. Ativan 1 mg p.o. q.4 h. p.r.n. 3. Zofran 4 mg p.o. q.6 h. p.r.n. 4. Lovenox 40 mg subcu. 5. Amlodipine 2.5 mg p.o. 6. Hydralazine 5 mg IV push. 7. Phenergan 25 mg. HISTORY OF PRESENT ILLNESS AND HOSPITAL COURSE: Jazmine Spear is a 57-year -old female with past medical history of alcohol abuse and hypertension, who presented to the ED on 04/22/2017 with complaint of 2 days of heavy vaginal bleeding. She has been postmenopausal for approximately 10 years. No prior history of bleeding. There was no associated cramping until the afternoon of admission. The patient denied any dizziness or weakness associated with bleeding and she was bleeding somewhat so that she had to change pad every hour. She also complains of 4 days of nausea and vomiting with diarrhea, neither the vomitus or diarrhea was bloody. The patient abuses alcohol and she typically drinks a pint of whiskey per day. It has been approximately 24 hours since her last drink and she was wanting to detox from alcohol. She says that she has done this before and denies any problem detoxing or issues with seizures or alcohol withdrawal. In the ED, the patient was given Librium and Ativan to control withdrawal symptoms. On admission, her blood pressure was 178 /111, pulse 100, respiratory rate 18, T-max 98.2, pulse ox 94% on room air. SIGNIFICANT LABORATORY DATA: Included a white count of 7.5, platelets of 391, hemoglobin of 14.3, hematocrit of 40.8, MCV of 94, creatinine 0.64, AST 23, ALT 12, alkaline phosphatase 84. PT 14.4, INR 1.1, PTT 27.1, CK-MB of 0.8. Troponins were negative. TSH was 1.94. UA showed too numerous to count red blood cells, small leukocyte esterase, 21-50 white blood cells, bacteria negative. EKG showed sinus tachycardia. HOSPITAL COURSE: The patient was admitted, put on ASE protocol and symptoms were monitored closely for alcohol withdrawal, hallucinosis, and DTs. The patient never developed any symptoms throughout her admission. Due to the vaginal bleeding, the COLLECTIONS TECHNICIAN hospitalist was consulted and he recommended EMB. Endometrial biopsy was performed by Dr. Duarte and Dr. Ramos and path was sent. It was also recommended that the patient be started on Provera 10 mg t.i.d. for 2 days, followed by Provera 10 mg b.i.d. for 5 days. The patient's bleeding improved over her admission and path results came back on the day of discharge and were read as endometrioid carcinoma FIGO grade 2. The patient was made aware of the diagnosis and one step she would need to go through. Dr. Ramos recommended the patient see Dr. Ambreen Vergara, Gynecology oncologist, in [place]. The patient was not funded. Case management was consulted for assistance and resources. The patient was provided information by case management and given instructions and help the patient to apply for cervical Medicaid. Nurse also reported that she will contact Dr. Vergara's office to schedule appointment. The patient understood the plan and knew that she needed close follow up with Gynecology oncologist. The patient was also made aware that she needs to follow [facility] with [facility], and then she needs to continue taking the Provera for a few more days. The patient was understanding of the situation and appreciative for the assistance. DISPOSITION: Guarded. The patient will need to be seen by Gynecology oncologist for total abdominal hysterectomy and lymph node biopsy and would likely need radiation as well and even chemotherapy depending on stage. The patient was made aware of all this information, and she expressed understanding for the importance of being seen soon. The patient will also need to follow up with a primary care physician for workup of microscopic hematuria and hip MRI. She will follow up for CT results. DISCHARGE INSTRUCTIONS: 1. Location: Home. 2. Diet: Heart healthy. 3. Activity: As tolerated. 4. Follow up with primary care physician or [facility] if no primary care physician and Gynecology oncologist for endometrial carcinoma workup. Addendum: 04/28/[address] Due [address] the [address] CT scan finding of osteonecrosis of femoral head, MRI was obtained. Results were as above. Orthopedics, Dr. Pete, was notified of patient's case and he states that this is not an orthopedic emergency and he agreed that her Endometrial Carcinoma takes priority over this finding. Stated that there is a chance that patient's femoral head could eventually collapse, which would require hip replacement. The patient was notified of these results and the discussion between myself and Dr. Pete and his recommendations. She understood and was in agreement with this plan. [facility]
--- NOTE | 2017-04-25 21:33 | MRI ---
MRI RIGHT HIP WITH AND WITHOUT CONTRAST 04/25/17 HISTORY: Osteonecrosis. COMPARISON: CT 04/22/17. FINDINGS: There is a small curvilinear area of osteonecrosis of the anterior right femoral head as seen on the recent CT examination. The underlying marrow signal is maintained. The marrow in the area of osteonec rosis does appear to enhance, as well as an old area of healing osteonecrosis. There is also a small focus of osteonecrosis of the left femoral head. No displaced fracture. There is a large mass within the endometrial canal incompletely evaluated on this examination althoug h is highly concerning for malignancy with obstruction of flow within the endometrial canal. There is mild edema of the left pubic symphysis indicating active pubic symphysitis. Mild right sided greater trochanteric bursitis and low grade tendinosis and partial tearing. Moderate diverticular disease of the sigmoid colon. IMPRESSION: 1. Low grade avascular necrosis anterior right femoral head without collapse. The underlying mar row signal does appear to some enhancement and therefore this could be an area of resolving avascular necrosis. 2. Punctate area left femoral head vascular necrosis without collapse. 3. Aggressive mass within the endometrial canal with areas of necrosis. ROUTE DELIVERY SERVICE DRIVER consultation is maria elena mmended. 4. Active pubic symphysitis left pubic body. 5. Mild to moderate right greater trochanteric bursitis and underlying gluteus medius tendinosis and partial tearing. 6. Extensive partial tearing of the right semimembranosus tendon. 7. 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
[2017-04-26] MEDS: Ibuprofen 600 MG TAB PO PRN (05:36)
--- NOTE | 2017-04-26 05:56 | PDOC.FM ---
- Subjective Subjective: Mrs. Spear states that she is doing okay this morning. There were no acute events overnight. She states that she has continued to bleed but it is much less bleeding and darker blood. She has also continued to have soft stools. She has no other complaints. Denies chest pain, abd pain, dyspnea, fever. - Objective MAR Reviewed: Yes Vital Signs & Weight: Vital Signs (12 hours) Temp Pulse Resp BP BP Pulse Ox 04/26/17 04:00 98 F 76 16 155/95 H 95 04/26/17 03:43 155/95 H 04/26/17 00:17 97.9 F 72 16 162/99 H 98 04/26/17 00:00 162/99 H 04/25/17 20:46 167/105 H 04/25/17 20:24 97.6 F 103 H 16 167/105 H 95 04/25/17 19:54 97.6 F 103 H 16 167/105 H 95 Weight Weight 56.835 kg I&O: 04/24/17 04/25/17 04/26/17 06:59 06:59 06:59 Intake Total 2967 1333 1687 Balance 2967 1333 1687 Result Diagrams: 04/24/17 06:09 04/24/17 06:09 <Luis E Duarte - Last Filed: 04/26/17 10:59> - Objective Vital Signs & Weight: Vital Signs (12 hours) Temp Pulse Resp BP Pulse Ox 04/26/17 11:44 98.4 F 104 H 20 150/114 H 97 04/26/17 08:23 98 F 79 20 97 04/26/17 07:50 98 F 79 20 161/109 H 97 Weight Weight 56.835 kg I&O: 04/25/17 04/26/17 04/27/17 06:59 06:59 06:59 Intake Total 1333 1687 Balance 1333 1687 Result Diagrams: 04/24/17 06:09 04/24/17 06:09 <Ivette Fitzgerald - Last Filed: 04/26/17 16:48> Phys Exam - Physical Examination Constitutional: NAD HEENT: moist MMs, sclera anicteric Neck: no JVD, supple, full ROM Respiratory: no wheezing, no rales, no rhonchi, clear to auscultation bilateral Cardiovascular: RRR, no significant murmur Gastrointestinal: soft, non-tender, no distention, positive bowel sounds Musculoskeletal: no edema, pulses present Neurological: non-focal, normal sensation, moves all 4 limbs Psychiatric: normal affect, A&O x 3 <Luis E Duarte - Last Filed: 04/26/17 10:59> Dx/Plan (1) Alcohol withdrawal Code(s): F10.239 - ALCOHOL DEPENDENCE WITH WITHDRAWAL, UNSPECIFIED Status: Acute Plan: hx of 4 days of nausea/vomiting and diarrhea pt endorses drinking pint of whiskey a day, on admission it had been approximately 24 hours since last drink She has a history of detoxification from alcohol in the past and did not have any seizures/hallucinosis -pt received ativan and librium in the ER to control withdrawal symptoms 04/23/17 Continue ASE protocol, patient received banana bag Continue IVFs 150 ml/hr, monitor vitals and symptoms closely 04/24/17 Patient has not experienced any symptoms of DTs or withdrawal hallucinosis According to patient, it has been >4 days since her last alcoholic beverage Likely ready for discharge today with close follow up with manager ed for post menopausal uterine bleeding 04/24/17 Patient has continued to be asymptomatic of DTs or alcoholic withdrawal We are now out of the window for DTs Patient ready for d/c today 04/25/17 Out of window for DTs/withdrawal Safe for d/c (2) Dehydration Code(s): E86.0 - DEHYDRATION Status: Resolved Plan: Tolerating PO, resolved (3) Abnormal uterine bleeding Code(s): N93.9 - ABNORMAL UTERINE AND VAGINAL BLEEDING, UNSPECIFIED Status: Acute Plan: industrial service technician hospitalist consulted (Richard), appreciate recs -EMB performed 04/23/17 (Gerald/Richard), path results revealed Endometrial Carcinoma , grade 2. -[facility]ap records from [facility] pending -per DIRECTOR ASSET recs, Provera 10 mg TID for 2 days total followed by Provera 10 mg BID for 5 days -recommended patient see gynecology oncologist (Dr. Vergara recommended by Dr. Ramos ) -patient being assisted by CM team (4) Hypertensive urgency Code(s): I16.0 - HYPERTENSIVE URGENCY Status: Acute Plan: Will continue Home dose of Lisinopril with PRN hydralazine for BPs over 180 systolic BP this morning is 145/99, added amlodipine 5 mg PO daily to regimen, will monitor (5) Avascular necrosis of bones of both hips Code(s): M87.051 - IDIOPATHIC ASEPTIC NECROSIS OF RIGHT FEMUR; M87.052 - IDIOPATHIC ASEPTIC NECROSIS OF LEFT FEMUR Status: Acute Plan: Patient had incidential CT findings suggestive of R avascular necrosis, recommeded MRI of hip -MRI showed low grade avascular necrosis of anterior right femoral head. Underlying marrow signal does appear to show some enhancement, therefore could be an area of resolving avascular necrosis. Also showed punctate area of left femoral head vascular necrosis without collapse. Gluteus medius tendinosis and partial tearing. Right semimembranosus tendon extensive partial tearing. -consider Ortho consult vs OP ortho follow up <Luis E Duarte - Last Filed: 04/26/17 10:59> Attending Addendum - Attending Addendum I personally evaluated the patient and discussed the management with Dr. Duarte. I agree with the History, Examination, Assessment and Plan documented above with any addition or exceptions noted below. The patient is doing well. She had anders MRI showing some avascular necrosis. Dr. Duarte discussed the results with Dr. Pete who recommended she follow-up as an outpt. He thought the more pressing issue would be treatment for her endometrial cancer followed by possible orthopedic surgery. <Ivette Fitzgerald - Last Filed: 04/26/17 16:48>
[2017-04-26] MEDS: Folic Acid 1 MG TAB PO SCH (08:23)
[2017-04-26] MEDS: Multivitamin W/ Minerals 1 TAB PO SCH (08:23)
[2017-04-26] MEDS: Lisinopril 20 MG TAB PO SCH (08:23)
[2017-04-26] MEDS: Magnesium Oxide 400 MG TAB PO SCH (08:24)
[2017-04-26] MEDS ORDERED: Amlodipine 5 MG TAB PO SCH (09:00)
[2017-04-26] MEDS: medroxyPROGESTERone Acetate 5 MG TAB PO SCH (10:25)
[2017-04-26 11:46] VITALS: BP 150/114; TEMP 98.4
--- NOTE | 2017-05-24 16:53 | EKG ---
Test Reason : Blood Pressure : / mmHG Vent. Rate : 108 BPM Atrial Rate : 108 BPM P-R Int : 124 ms QRS Dur : 072 ms QT Int : 344 ms P-R-T Axes : 072 081 058 degrees QTc Int : 460 ms Sinus tachycardia Possible Left atrial enlargement Nonspecific ST abnormality Abnormal ECG Confirmed by SHANTHI PUGH ([id number]), editor news LEÓN CROOK ([id number]) on 05/24/2017 4:53:00 PM Referred By: Confirmed By:SHANTHI PUGH
== END 2017-04-26 12:28 | disposition home or self-care (01) | DRG 744 ==
LOC: ERS 09:06 → ERHOLD 15:54 → 2SE 21:00
PROVIDERS: ADMIT Family Medicine; ATTEND Family Medicine
PROC: 0UDB7ZX Extraction of Endometrium, Via Natural or Artificial Opening, Diagnostic (ICD-10-PCS; principal; 2017-04-23)
DX: C54.1 Malignant neoplasm of endometrium (principal); F10.239 Alcohol dependence with withdrawal, unspecified; E87.2 Acidosis; E46 Unspecified protein-calorie malnutrition; M87.051 Idiopathic aseptic necrosis of right femur; M87.052 Idiopathic aseptic necrosis of left femur; E86.0 Dehydration; E86.1 Hypovolemia; I10 Essential (primary) hypertension; R00.0 Tachycardia, unspecified; I16.0 Hypertensive urgency; F41.9 Anxiety disorder, unspecified; F32.9 Major depressive disorder, single episode, unspecified; Z68.22 Body mass index [BMI] 22.0-22.9, adult
CPT/HCPCS: 36415; 36416; 74177; 76705; 76856; 80048; 80053; 80306; 80307; 81003; 81015; 82553; 83630; 83690; 84443; 84484; 85025; 85610; 85730; 87040; 87077; 87086; 87186; 87324; 87449; 87480; 87491; 87510; 87591; 87660; 88305; 93005; 96361; 96365; 96366; 96375; 96376; A9579; G8978-GP-CK; G8979-GP-CH; G8987-GO-CK; G8988-GO-CI; J0360; J1650; J2060; J2550; J3411; J3475; J7042; J7050

== ENCOUNTER 2017-04-30 15:09 | Emergency (ER) | payer SELFPAY ==
[2017-04-30 16:33] LABS: Mean Corpuscular HGB CONC 33.4 g/dL (32.0-36.0); Mean Corpuscular Hemoglobin 34.2 pg (27.0-31.0); Mean Platelet Volume 5.6 fL (7.4-10.4); Platelet Count 365 thou/uL (130-400); RBC Distribution Width 12.6 % (11.5-14.5); Red Blood Cell (RBC) Count 3.51 mill/uL (4.20-5.40); White Blood Cell (WBC) Count 3.6 thou/uL (4.8-10.8)
--- NOTE | 2017-04-30 16:46 | RAD ---
CHEST 1 VIEW: Date: 04/30/17 HISTORY: Chest and hip pain. COMPARISON: 02/17/16. FINDINGS: Cardiac silhouette is magnified by projection. Pulmonary vasculature is unremarkable. The patient is slightly rotated rightward. There is calcification in the aorta. No lobar consolidation or pneumothor ax apparent. Chronic cortical remodeling of the proximal humerus is stable. IMPRESSION: Atherosclerosis. Chronic-type findings are stable. No active cardiopulmonary abnormalities are demons trated. POS: [facility]
[2017-04-30 16:53] LABS: ALT (SGPT) 10 U/L (8-55); AST (SGOT) 19 U/L (5-34); Albumin 4.2 g/dL (3.5-5.0); Alkaline Phosphatase 53 U/L (40-150); Anion Gap 16 mmol/L (10-20); BUN (Urea Nitrogen) 8 mg/dL (9.8-20.1); Bilirubin, Total 0.3 mg/dL (0.2-1.2); Calc. Creatinine Clearance 0 mL/min (70-130); Calcium 9.9 mg/dL (7.8-10.44); Carbon Dioxide 25 mmol/L (22-29); Chloride 104 mmol/L (98-107); Estimated GFR-MDRD 89; Glucose 99 mg/dL (70-105); Potassium 4.6 mmol/L (3.5-5.1); Protein, Total 7.2 g/dL (6.0-8.3); Sodium 140 mmol/L (136-145)
[2017-04-30 16:57] LABS: Band 2 % (5-11); Eosinophils 1 % (0-10); Lymphocytes 52 % (21-51); MDiff Complete? YES; Macrocytosis SLIGHT = 6-15 cells (100X) (0-5/hpf); Monocytes 3 % (0-10); Neutrophil 39 % (42-75); PLT Morphology Comment Appears Adequate
[2017-04-30 18:33] LABS: Bilirubin Negative (Negative); Blood, Urine Trace (Negative); Clarity CLEAR (Clear); Glucose, Urine (Dipstick) Negative (Negative); Leukocyte Negative (Negative); Nitrite Negative (Negative); Protein, Urine (Dipstick) Negative (Neg-Trace); Specific Gravity, Urine 1.011 (1.002-1.036); Urobilinogen 0.2 mg/dL (0.2-1.0)
[2017-04-30 18:36] LABS: Bacteria/HPF None Seen HPF (None Seen); Hyaline Casts/LPF 0-3 HYALINE CAST LPF (0-3 Hyaline); RBC/HPF None Seen HPF (0-3); Squamous Epithelial None Seen HPF (0-3); WBC/HPF None Seen HPF (0-3)
== END 2017-04-30 20:28 | disposition home or self-care (01) ==
LOC: ERS 15:09
DX: R53.1 Weakness (principal); I10 Essential (primary) hypertension; F41.9 Anxiety disorder, unspecified; F32.9 Major depressive disorder, single episode, unspecified; Z79.899 Other long term (current) drug therapy; Z91.19 Patient's noncompliance with other medical treatment and regimen
CPT/HCPCS: 51701; 71045; 80053; 81003; 81015; 85025; 93005; 96360; A4353

== ENCOUNTER 2017-05-07 16:43 | Emergency (ER) | payer SELFPAY | END 2017-05-07 17:10 | disposition home or self-care (01) | LOC: ERS 16:43 | DX: F10.10 Alcohol abuse, uncomplicated (principal); I10 Essential (primary) hypertension; F41.9 Anxiety disorder, unspecified; F32.9 Major depressive disorder, single episode, unspecified | CPT/HCPCS: 99284 ==

== ENCOUNTER 2017-05-09 11:23 | Emergency (ER) | payer SELFPAY | END 2017-05-09 11:58 | disposition home or self-care (01) | LOC: ERS 11:23 | DX: N93.9 Abnormal uterine and vaginal bleeding, unspecified (principal); F10.129 Alcohol abuse with intoxication, unspecified; I10 Essential (primary) hypertension; F32.9 Major depressive disorder, single episode, unspecified; F41.9 Anxiety disorder, unspecified; Z79.899 Other long term (current) drug therapy | CPT/HCPCS: 99284 ==

== ENCOUNTER 2017-05-09 19:10 | Emergency (ER) | payer SELFPAY | END 2017-05-09 19:28 | disposition left against medical advice (07) | LOC: ERS 19:10 | DX: Z53.21 Procedure and treatment not carried out due to patient leaving prior to being seen by health care provider (principal) ==

== ENCOUNTER 2017-05-09 21:18 | Emergency (ER) | payer SELFPAY | END 2017-05-09 21:25 | disposition left against medical advice (07) | LOC: ERS 21:18 | DX: Z53.21 Procedure and treatment not carried out due to patient leaving prior to being seen by health care provider (principal) ==

== ENCOUNTER 2017-05-20 14:27 | Emergency (ER) | payer SELFPAY ==
--- NOTE | 2017-05-20 15:46 | CT ---
CT BRAIN: DATE: 05/20/17. PROVIDED CLINICAL HISTORY: Fall from standing and hit head on ground. FINDINGS: Comparison 11/15/14. The ventricular system appears normal in size and morphology. There is no evide nce for intracranial hemorrhage or mass effect. There is right parietal scalp swelling without evide nce for subjacent fracture. The extracranial soft tissues and osseous structures demonstrate an unre markable CT appearance otherwise. Chronic microvascular ischemic changes are seen. IMPRESSION: No evidence for intracranial hemorrhage or mass effect. POS: [facility]
--- NOTE | 2017-05-20 15:48 | CT ---
CT CERVICAL SPINE WITH CORONAL AND SAGITTAL REFORMATIONS: HISTORY: Fall. Neck pain. Right-sided head laceration. COMPARISON: 11/04/2014 FINDINGS: Extensive multilevel degenerative changes are again seen. No acute fracture or subluxation is identi fied. POS: [facility]
--- NOTE | 2017-05-20 15:49 | RAD ---
LEFT HIP TWO VIEWS: HISTORY: Fall. Left hip pain. COMPARISON: 04/22/2017 FINDINGS: No acute fracture or dislocation is identified. POS: [facility]
[2017-05-20 18:56] LABS: #Basophils 0.1 thou/uL (0.0-0.2); #Eosinphils 0.1 thou/uL (0.0-0.7); #Lymphocytes 1.3 thou/uL (1.20-3.40); #Monocytes 0.5 thou/uL (0.11-0.59); #Neutrophils 2.5 thou/uL (1.40-6.50); %Basophils 1.3 % (0.0-1.0); %Eosinophils 1.7 % (0.0-10.0); %Lymphocytes 28.9 % (21.0-51.0); %Monocytes 11.5 % (0.0-10.0); %Neutrophils 56.5 % (42.0-75.0); Hemoglobin 13.2 g/dL (12.0-16.0); Mean Corpuscular HGB CONC 33.7 g/dL (32.0-36.0); Mean Platelet Volume 6.3 fL (7.4-10.4); Platelet Count 342 thou/uL (130-400); RBC Distribution Width 13.2 % (11.5-14.5); Red Blood Cell (RBC) Count 3.76 mill/uL (4.20-5.40); White Blood Cell (WBC) Count 4.4 thou/uL (4.8-10.8)
[2017-05-20 19:01] LABS: Prothrombin Time 13.3 SEC (12.0-14.7)
[2017-05-20 19:12] LABS: Anion Gap 17 mmol/L (10-20); BUN (Urea Nitrogen) 10 mg/dL (9.8-20.1); Calc. Creatinine Clearance 0 mL/min (70-130); Calcium 9.8 mg/dL (7.8-10.44); Carbon Dioxide 25 mmol/L (22-29); Chloride 102 mmol/L (98-107); Estimated GFR-MDRD 90; Glucose 106 mg/dL (70-105); Sodium 140 mmol/L (136-145)
== END 2017-05-20 18:50 | disposition home or self-care (01) ==
LOC: ERS 14:27
DX: S01.01XA Laceration without foreign body of scalp, initial encounter (principal); F10.10 Alcohol abuse, uncomplicated; F17.210 Nicotine dependence, cigarettes, uncomplicated; W17.89XA Other fall from one level to another, initial encounter; Y92.009 Unspecified place in unspecified non-institutional (private) residence as the place of occurrence of the external cause
CPT/HCPCS: 12001; 36415; 70450; 72125; 80048; 85025; 85610

== ENCOUNTER 2017-05-24 23:08 | Emergency (ER) | payer SELFPAY ==
[2017-05-25 01:09] LABS: #Basophils 0.1 thou/uL (0.0-0.2); #Lymphocytes 1.6 thou/uL (1.20-3.40); #Monocytes 0.2 thou/uL (0.11-0.59); #Neutrophils 2.5 thou/uL (1.40-6.50); %Basophils 1.5 % (0.0-1.0); %Eosinophils 0.3 % (0.0-10.0); %Lymphocytes 37.2 % (21.0-51.0); %Monocytes 3.6 % (0.0-10.0); %Neutrophils 57.4 % (42.0-75.0); Hemoglobin 13.4 g/dL (12.0-16.0); Mean Corpuscular HGB CONC 35.1 g/dL (32.0-36.0); Mean Corpuscular Volume 99.7 fl (81.0-99.0); Mean Platelet Volume 5.7 fL (7.4-10.4); Platelet Count 416 thou/uL (130-400); RBC Distribution Width 13.1 % (11.5-14.5); Red Blood Cell (RBC) Count 3.82 mill/uL (4.20-5.40); White Blood Cell (WBC) Count 4.4 thou/uL (4.8-10.8)
[2017-05-25] MEDS ORDERED: Folic Acid 1 MG TAB ONE (01:15)
[2017-05-25 01:36] LABS: ALT (SGPT) 11 U/L (8-55); AST (SGOT) 22 U/L (5-34); Albumin 4.2 g/dL (3.5-5.0); Alkaline Phosphatase 90 U/L (40-150); Anion Gap 23 mmol/L (10-20); BUN (Urea Nitrogen) 11 mg/dL (9.8-20.1); Bilirubin, Total 0.3 mg/dL (0.2-1.2); Calc. Creatinine Clearance 0 mL/min (70-130); Calcium 9.3 mg/dL (7.8-10.44); Carbon Dioxide 21 mmol/L (22-29); Chloride 99 mmol/L (98-107); Estimated GFR-MDRD Greater than 90; Globulin 3.3 g/dL (2.4-3.5); Glucose 81 mg/dL (70-105); Potassium 3.8 mmol/L (3.5-5.1); Protein, Total 7.5 g/dL (6.0-8.3); Sodium 139 mmol/L (136-145)
[2017-05-25] MEDS ORDERED: Acetaminophen 500 MG TAB ONE (06:18)
[2017-05-25] MEDS ORDERED: Lorazepam 2 MG/ML VIAL ONE (06:22)
--- NOTE | 2017-05-25 07:45 | CT ---
BRAIN CT WITHOUT IV CONTRAST: HISTORY: A 57-year-old female for followup prior CT scan in a patient who tripped and fell backwards and hit h er occiput on the floor. FINDINGS: No mass or bleed or other significant acute process. No evidence for hemorrhage or other significant abnormality, particularly in the region of the right occipital lobe. Right scalp suma are noted. No evidence for as skull fracture. IMPRESSION: No acute intracranial process. No mass or bleed. POS: [place]
--- NOTE | 2017-05-25 14:09 | CT ---
PRELIMINARY REPORT/[facility]/EMERGENCY AFTER HOURS PROCEDURE: EXAM: CT Head Without Intravenous Contrast CLINICAL HISTORY: 57 years old, female; Injury or trauma; Fall; Initial encounter; Blunt trauma (contusions or hematoma s); Consciousness not specified; Patient HX: S/P fall x 1 day ago TECHNIQUE: Axial computed tomography images of the head/brain without intravenous contrast. COMPARISON: No relevant prior studies available. FINDINGS: Brain: Questioned punctate hyperdensity in the right occipital lobe versus artifact. Moderate white m atter disease. No edema. Ventricles: Unremarkable. No ventriculomegaly. Bones/joints: Unremarkable. No acute fracture. Soft tissues: Stapled right parieto-occipital scalp laceration Sinuses: Unremarkable as visualized. No acute sinusitis. Mastoid air cells: Unremarkable as visualized. No mastoid effusion. IMPRESSION: Questioned punctate hyperdensity in the right occipital lobe versus artifact. Punctate hemorrhage can not be completely excluded. Continued CT followup within 6 hours recommended Thank you for allowing us to participate in the care of your patient. Dictated and Authenticated by: Mikhail New MD 05/25/2017 1:36 AM Central Time ([place] & [place]) FINAL REPORT BRAIN CT WITHOUT IV CONTRAST: HISTORY: A 57-year-old female with a history of a fall hitting the back of head on floor. COMPARISON: 05/20/17. FINDINGS: There is a tiny focus of minimal increased density in the right occipital lobe, probably artifact. A trophy and chronic white matter ischemic change. Consider short-term followup examination to totally rule out the possibility of a small intraparenchy mal contusion. No evidence for a skull fracture. Right parietal scalp suma. POS: [facility]
== END 2017-05-25 11:37 | disposition home or self-care (01) ==
LOC: ERS 23:08
DX: F10.10 Alcohol abuse, uncomplicated (principal); F17.210 Nicotine dependence, cigarettes, uncomplicated; Z85.028 Personal history of other malignant neoplasm of stomach; Z85.42 Personal history of malignant neoplasm of other parts of uterus; W01.10XA Fall on same level from slipping, tripping and stumbling with subsequent striking against unspecified object, initial encounter; Y92.009 Unspecified place in unspecified non-institutional (private) residence as the place of occurrence of the external cause
CPT/HCPCS: 36415; 70450; 80053; 85025; 96361; 96374; J2060

== ENCOUNTER 2017-05-30 15:04 | Emergency (ER) | payer SELFPAY | END 2017-05-30 18:35 | disposition home or self-care (01) | LOC: ERS 15:04 | DX: S01.01XD Laceration without foreign body of scalp, subsequent encounter (principal); F17.210 Nicotine dependence, cigarettes, uncomplicated; X58.XXXD Exposure to other specified factors, subsequent encounter ==

== ENCOUNTER 2017-05-30 21:02 | Emergency (ER) | payer SELFPAY | END 2017-05-30 21:13 | LOC: ERS 21:02 | DX: Z02.89 Encounter for other administrative examinations (principal); F17.210 Nicotine dependence, cigarettes, uncomplicated | CPT/HCPCS: 99282 ==

== ENCOUNTER 2017-05-31 00:21 | Emergency (ER) | payer SELFPAY ==
[2017-05-31] MEDS ORDERED: Lorazepam 2 MG/ML VIAL ONE (00:45)
[2017-05-31] MEDS ORDERED: Ibuprofen 800 MG TAB ONE (00:45)
[2017-05-31] MEDS ORDERED: Thiamine HCl 200 MG/2 ML VIAL IM SCH (01:00)
== END 2017-05-31 01:27 | disposition home or self-care (01) ==
LOC: ERS 00:21
DX: Z02.89 Encounter for other administrative examinations (principal); F17.210 Nicotine dependence, cigarettes, uncomplicated
CPT/HCPCS: 96372; J2060; J3411

== ENCOUNTER 2017-07-31 07:20 | Emergency (ER) | payer SELFPAY ==
[2017-07-31 09:20] LABS: #Eosinphils 0.1 thou/uL (0.0-0.7); #Lymphocytes 1.3 thou/uL (1.20-3.40); #Monocytes 0.4 thou/uL (0.11-0.59); #Neutrophils 2.7 thou/uL (1.40-6.50); %Basophils 0.4 % (0.0-1.0); %Eosinophils 1.3 % (0.0-10.0); %Lymphocytes 28.8 % (21.0-51.0); %Monocytes 9.9 % (0.0-10.0); %Neutrophils 59.6 % (42.0-75.0); Hemoglobin 11.5 g/dL (12.0-16.0); Mean Corpuscular HGB CONC 32.3 g/dL (32.0-36.0); Mean Corpuscular Hemoglobin 30.1 pg (27.0-31.0); Mean Corpuscular Volume 93.5 fl (81.0-99.0); Mean Platelet Volume 5.9 fL (7.4-10.4); Platelet Count 281 thou/uL (130-400); RBC Distribution Width 14.3 % (11.5-14.5); Red Blood Cell (RBC) Count 3.82 mill/uL (4.20-5.40); White Blood Cell (WBC) Count 4.4 thou/uL (4.8-10.8)
[2017-07-31 09:40] LABS: ALT (SGPT) 10 U/L (8-55); AST (SGOT) 19 U/L (5-34); Acetaminophen Less than 6.0 mcg/mL (10.0-30.0); Albumin 3.9 g/dL (3.5-5.0); Alcohol 60 mg/dL (Less than 10); Alkaline Phosphatase 100 U/L (40-150); Anion Gap 17 mmol/L (10-20); BUN (Urea Nitrogen) 9 mg/dL (9.8-20.1); Bilirubin, Total 0.2 mg/dL (0.2-1.2); Calc. Creatinine Clearance 0 mL/min (70-130); Calcium 9.3 mg/dL (7.8-10.44); Carbon Dioxide 27 mmol/L (22-29); Chloride 96 mmol/L (98-107); Estimated GFR-MDRD Greater than 90; Globulin 3.2 g/dL (2.4-3.5); Glucose 101 mg/dL (70-105); Protein, Total 7.1 g/dL (6.0-8.3); Salicylate Less than 8.0 mg/dL (15.0-30.0); Sodium 136 mmol/L (136-145)
[2017-07-31 10:34] LABS: Bilirubin Small (Negative); Blood, Urine Large (Negative); Glucose, Urine (Dipstick) Negative (Negative); Leukocyte Large (Negative); Nitrite Positive (Negative); Protein, Urine (Dipstick) > or equal to 300 mg/dL (Neg-Trace); pH, Urine 8.5 (5.0-9.0)
[2017-07-31 10:40] LABS: Clarity CLOUDY (Clear); Other Microscopic Description Less than 2 mL rec'd
[2017-07-31 10:50] LABS: Amphetamine Not Detected (NotDetected); Barbiturates Screen Not Detected (NotDetected); Benzodiazepine Screen Detected (NotDetected); Cocaine Metabolite Screen Not Detected (NotDetected); Medtox Control Line Valid? VALID (VALID); Medtox Reader # READER 4; Methadone Not Detected (NotDetected); Methamphetamine Not Detected (NotDetected); Opiate Screen Not Detected (NotDetected); Oxycodone Screen Not Detected (NotDetected); Phencyclidine (PCP) Not Detected (NotDetected); THC/Cannabinoid Screen Not Detected (NotDetected); Tricyclic Screen Not Detected (NotDetected)
[2017-07-31] MEDS ORDERED: Ondansetron ODT 4 MG TAB ONE (10:55)
== END 2017-07-31 13:10 | disposition home or self-care (01) ==
LOC: ERS 07:20
DX: N93.9 Abnormal uterine and vaginal bleeding, unspecified (principal); F17.210 Nicotine dependence, cigarettes, uncomplicated
CPT/HCPCS: 80053; 80306; 80307; 81003; 81015; 85025; 87077; 87086; 87186; 96360; 99406; Q0162

== ENCOUNTER 2018-02-22 15:26 | Emergency (ER) | payer SELFPAY ==
[~2018-02-22 15:26] MED LIST: Iopamidol 370 76% 100 ML VIAL ONE; Iopamidol 370 76% 50 ML VIAL FS ONE
[2018-02-22] MEDS ORDERED: Morphine 4 MG/ML VIAL ONE (16:06)
[2018-02-22] MEDS ORDERED: Ondansetron PF 4 MG/2 ML Vial ONE (16:06)
[2018-02-22 16:26] LABS: #Lymphocytes 1.3 thou/uL (1.20-3.40); #Monocytes 0.3 thou/uL (0.11-0.59); #Neutrophils 2.6 thou/uL (1.40-6.50); %Basophils 0.5 % (0.0-1.0); %Eosinophils 0.2 % (0.0-10.0); %Lymphocytes 30.4 % (21.0-51.0); %Monocytes 7.3 % (0.0-10.0); %Neutrophils 61.6 % (42.0-75.0); Hemoglobin 9.4 g/dL (12.0-16.0); Mean Corpuscular HGB CONC 32.1 g/dL (32.0-36.0); Mean Corpuscular Hemoglobin 27.1 pg (27.0-31.0); Mean Corpuscular Volume 84.6 fL (78.0-98.0); Mean Platelet Volume 5.9 fL (7.4-10.4); Platelet Count 331 thou/uL (130-400); RBC Distribution Width 21.6 % (11.5-14.5); Red Blood Cell (RBC) Count 3.47 mill/uL (4.20-5.40); White Blood Cell (WBC) Count 4.2 thou/uL (4.8-10.8)
[2018-02-22 16:40] LABS: Anisocytosis MODERATE=16-30 cells (100X) (0-5/hpf); MDiff Complete? YES; PLT Morphology Comment Appears Adequate; Polychromasia SLIGHT = 2-3 cells (100X) (0-2/hpf)
[2018-02-22 16:49] LABS: ALT (SGPT) 7 U/L (8-55); AST (SGOT) 11 U/L (5-34); Albumin 3.9 g/dL (3.5-5.0); Alkaline Phosphatase 95 U/L (40-150); Anion Gap 12 mmol/L (10-20); BUN (Urea Nitrogen) 5 mg/dL (9.8-20.1); Bilirubin, Total Less than 0.2 mg/dL (0.2-1.2); Calc. Creatinine Clearance 0 mL/min (70-130); Calcium 9.5 mg/dL (7.8-10.44); Carbon Dioxide 27 mmol/L (22-29); Chloride 94 mmol/L (98-107); Estimated GFR-MDRD 87; Globulin 3.3 g/dL (2.4-3.5); Glucose 87 mg/dL (70-105); Lipase 9 U/L (8-78); Potassium 4.3 mmol/L (3.5-5.1); Protein, Total 7.2 g/dL (6.0-8.3); Sodium 129 mmol/L (136-145)
[2018-02-22 17:37] LABS: Bilirubin Negative (Negative); Blood, Urine Trace (Negative); Clarity CLOUDY (Clear); Glucose, Urine (Dipstick) Negative (Negative); Leukocyte Large (Negative); Nitrite Positive (Negative); Protein, Urine (Dipstick) Negative (Neg-Trace); Specific Gravity, Urine 1.005 (1.002-1.036); Urobilinogen 0.2 mg/dL (0.2-1.0); pH, Urine 6.5 (5.0-9.0)
[2018-02-22 17:42] LABS: Bacteria/HPF 1+ HPF (None Seen); Hyaline Casts/LPF 0-3 HYALINE CAST LPF (0-3 Hyaline); Pathc Cast-AUWi Flag 0.29 (0-2.49); RBC/HPF 0-3 HPF (0-3); Squamous Epithelial None Seen HPF (0-3)
[2018-02-22] MEDS ORDERED: cefTRIAXone\\ROCEPHIN 1 GM VIAL ONE (17:52)
[2018-02-22] MEDS ORDERED: HYDROcodone/Acetaminophen 5/325 mg Tablet ONE (18:12)
--- NOTE | 2018-02-22 18:12 | CT ---
CT ABDOMEN AND PELVIS WITH CONTRAST: 02/22/2018 COMPARISON: 04/22/2017 TECHNIQUE: Contrast enhanced CT images of the abdomen and pelvis are obtained after the administration of IV and oral contrast. FINDINGS: The lung bases are unremarkable. No evidence of free intraperitoneal air is seen. Lower anterior abdominal wall surgical change is seen. The liver and spleen are unremarkable. The gallbladder and pancreas are unremarkable. The adrenal g lands and kidneys are unremarkable. The adrenal glands and kidneys are unremarkable. Some calcifica tion is seen in the pancreatic head. Surgical clips are seen in the left periaortic region. No dilated loops of small bowel are seen. A large amount of stool is seen in the proximal colon. No evidence of small bowel obstruction or ileus is seen. There is a 6.3 x 6.3 x 7.4 cm right adnexal cystic lesion or mass. This may represent a right ovaria n cyst verus a lymphocele. Correlate with surgical history. The heterogeneous mass in the pelvis appears to have been removed. There is a right pelvic cyst or cystic lesion, posterior to the right iliac arteries. This may repre sent a cystic right ovary versus a lymphocele. Correlate with gynecologic exam and possible pelvic M RI. POS: [facility]
== END 2018-02-22 18:20 | disposition home or self-care (01) ==
LOC: ERS 15:26
DX: N39.0 Urinary tract infection, site not specified (principal); I10 Essential (primary) hypertension; N94.89 Other specified conditions associated with female genital organs and menstrual cycle
CPT/HCPCS: 74177; 80053; 81003; 81015; 83690; 85025; 87077; 87086; 87186; 93005; 96361; 96365; 96375; J0696; J2270; J2405

== ENCOUNTER 2018-07-14 11:20 | Emergency (ER) | payer SELFPAY ==
[2018-07-14 11:55] LABS: #Basophils 0.1 thou/uL (0.0-0.2); #Lymphocytes 2.8 thou/uL (1.20-3.40); #Monocytes 0.4 thou/uL (0.11-0.59); #Neutrophils 6.4 thou/uL (1.40-6.50); %Basophils 0.8 % (0.0-1.0); %Eosinophils 0.2 % (0.0-10.0); %Lymphocytes 28.4 % (21.0-51.0); %Neutrophils 66.6 % (42.0-75.0); Hemoglobin 14.3 g/dL (12.0-16.0); Mean Corpuscular HGB CONC 33.7 g/dL (32.0-36.0); Mean Corpuscular Hemoglobin 33.5 pg (27.0-31.0); Mean Corpuscular Volume 99.5 fL (78.0-98.0); Mean Platelet Volume 7.3 fL (7.4-10.4); Platelet Count 347 thou/uL (130-400); RBC Distribution Width 13.8 % (11.5-14.5); Red Blood Cell (RBC) Count 4.27 mill/uL (4.20-5.40); White Blood Cell (WBC) Count 9.7 thou/uL (4.8-10.8)
--- NOTE | 2018-07-14 12:38 | RAD ---
Exam: 3 views of the lumbosacral spine HISTORY: Low back pain COMPARISON: 02/21/2016 FINDINGS: 3 views of the lumbosacral spine shows mild scoliotic curvature of the spine secondary to d egenerative change. There is grade 1 anterolisthesis of L4 on L5. The L4/5 intervertebral disc is abilio rowed and small osteophytes are seen in the mid lumbar spine. The sacroiliac joints are unremarkable. IMPRESSION: Degenerative changes of the lumbar spine with worsening of the spondylolisthesis of L4 on L5.
[2018-07-14 12:42] LABS: ALT (SGPT) 11 U/L (8-55); AST (SGOT) 28 U/L (5-34); Albumin 4.3 g/dL (3.5-5.0); Alcohol 310 mg/dL (Less than 10); Alkaline Phosphatase 92 U/L (40-150); Anion Gap 18 mmol/L (10-20); BUN (Urea Nitrogen) 9 mg/dL (9.8-20.1); Bilirubin, Total 0.3 mg/dL (0.2-1.2); Calc. Creatinine Clearance 0 mL/min (70-130); Calcium 9.2 mg/dL (7.8-10.44); Carbon Dioxide 24 mmol/L (22-29); Chloride 98 mmol/L (98-107); Estimated GFR-MDRD 90; Glucose 87 mg/dL (70-105); Potassium 3.9 mmol/L (3.5-5.1); Protein, Total 7.3 g/dL (6.0-8.3); Sodium 136 mmol/L (136-145)
== END 2018-07-14 13:18 | disposition home or self-care (01) ==
LOC: ERS 11:20
DX: M54.5 Low back pain (principal); M25.552 Pain in left hip; F10.129 Alcohol abuse with intoxication, unspecified; I10 Essential (primary) hypertension; Z79.899 Other long term (current) drug therapy
CPT/HCPCS: 36415; 72100; 80053; 80307; 85025; 93005; 96360

== ENCOUNTER 2018-10-06 04:55 | Emergency (ER) | payer SELFPAY ==
[2018-10-06] MEDS ORDERED: Lorazepam 2 MG/ML VIAL ONE (05:05)
[2018-10-06] MEDS ORDERED: chlordiazePOXIDE HCl 25 MG CAP ONE (05:05)
[2018-10-06] MEDS ORDERED: Multivitamins, Adult 10 ML, Thiamine HCl 100 MG, Folic Acid 1 MG in Dextrose 5 %-0.45 %... IV SCH (05:15)
[2018-10-06 06:23] LABS: ALT (SGPT) 11 U/L (8-55); AST (SGOT) 18 U/L (5-34); Acetaminophen Less than 6.0 mcg/mL (10.0-30.0); Alcohol Less than 10 mg/dL (Less than 10); Alkaline Phosphatase 97 U/L (40-150); Anion Gap 23 mmol/L (10-20); BUN (Urea Nitrogen) 13 mg/dL (9.8-20.1); Bilirubin, Total 1.5 mg/dL (0.2-1.2); Calc. Creatinine Clearance 0 mL/min (70-130); Calcium 10.5 mg/dL (7.8-10.44); Carbon Dioxide 20 mmol/L (22-29); Chloride 91 mmol/L (98-107); Estimated GFR-MDRD 66; Globulin 3.2 g/dL (2.4-3.5); Glucose 113 mg/dL (70-105); Magnesium 1.3 mg/dL (1.6-2.6); Potassium 3.4 mmol/L (3.5-5.1); Protein, Total 8.2 g/dL (6.0-8.3); Salicylate Less than 8.0 mg/dL (15.0-30.0); Sodium 131 mmol/L (136-145)
[2018-10-06 06:40] LABS: Free T4 (Free Thyroxine) 0.9 ng/dL (0.70-1.48); Thyroid Stimulating Hormone 2.9003 uIU/mL (0.35-4.94)
[2018-10-06 06:41] LABS: #Monocytes 0.6 thou/uL (0.11-0.59); #Neutrophils 7.6 thou/uL (1.40-6.50); %Basophils 0.1 % (0.0-1.0); %Eosinophils 0.4 % (0.0-10.0); %Lymphocytes 19.4 % (21.0-51.0); %Monocytes 5.8 % (0.0-10.0); %Neutrophils 74.3 % (42.0-75.0); Band 1 % (5-11); Hemoglobin 15.4 g/dL (12.0-16.0); Lymphocytes 16 % (21-51); MDiff Complete? YES; Mean Corpuscular HGB CONC 33.8 g/dL (32.0-36.0); Mean Corpuscular Hemoglobin 34.2 pg (27.0-31.0); Mean Platelet Volume 7.3 fL (7.4-10.4); Monocytes 1 % (0-10); Neutrophil 81 % (42-75); Platelet Count 237 thou/uL (130-400); Platelet Morphology Comment Appears Adequate; RBC Morphology Normal; Reactive Lymphocytes 1 % (0-10); Red Blood Cell (RBC) Count 4.51 mill/uL (4.20-5.40); White Blood Cell (WBC) Count 10.3 thou/uL (4.8-10.8)
[2018-10-06] MEDS ORDERED: Potassium Chloride 20 MEQ TAB ONE ×2 (07:03→07:04)
== END 2018-10-06 08:28 | disposition home or self-care (01) ==
LOC: ERS 04:55
DX: E83.42 Hypomagnesemia (principal); F10.10 Alcohol abuse, uncomplicated; R53.1 Weakness; I10 Essential (primary) hypertension; Z79.899 Other long term (current) drug therapy
CPT/HCPCS: 80053; 80307; 83735; 84439; 84443; 85025; 96365; 96366; 96375; J2060; J3411; J7042

== ENCOUNTER 2018-12-01 09:57 | Emergency (ER) | payer SELFPAY ==
[2018-12-01 11:23] LABS: Bacteria/HPF 4+ HPF (None Seen); Bilirubin Negative (Negative); Blood, Urine Negative (Negative); Clarity Turbid (Clear); Glucose, Urine (Dipstick) Normal (Negative); Leukocyte 500 Leu/uL (Negative); Mucous/LPF Rare LPF (<2+); Nitrite 2+ (Negative); Protein, Urine (Dipstick) Negative (Neg-Trace); Squamous Epithelial 0-3 HPF (0-3); Urobilinogen Normal mg/dL (Less than 2); WBC/HPF Greater than 50 HPF (0-3)
[2018-12-01 11:48] LABS: RBC/HPF 0-3 HPF (0-3)
== END 2018-12-01 13:15 | disposition home or self-care (01) ==
LOC: ERS 09:57
DX: N39.0 Urinary tract infection, site not specified (principal); I10 Essential (primary) hypertension; Z85.42 Personal history of malignant neoplasm of other parts of uterus
CPT/HCPCS: 81003; 81015; 87086; 87186; 99283

== ENCOUNTER 2018-12-18 19:27 | Emergency (ER) | payer SELFPAY ==
[2018-12-18 21:11] LABS: #Lymphocytes 1.5 thou/uL (1.20-3.40); #Monocytes 0.5 thou/uL (0.11-0.59); #Neutrophils 5.2 thou/uL (1.40-6.50); %Basophils 0.5 % (0.0-1.0); %Eosinophils 0.5 % (0.0-10.0); %Lymphocytes 20.9 % (21.0-51.0); %Monocytes 7.2 % (0.0-10.0); %Neutrophils 70.9 % (42.0-75.0); Hemoglobin 13.2 g/dL (12.0-16.0); Mean Corpuscular HGB CONC 34.1 g/dL (32.0-36.0); Mean Corpuscular Hemoglobin 33.5 pg (27.0-31.0); Mean Corpuscular Volume 98.2 fL (78.0-98.0); Mean Platelet Volume 6.7 fL (7.4-10.4); Platelet Count 295 thou/uL (130-400); RBC Distribution Width 12.2 % (11.5-14.5); Red Blood Cell (RBC) Count 3.94 mill/uL (4.20-5.40); White Blood Cell (WBC) Count 7.3 thou/uL (4.8-10.8)
[2018-12-18 21:27] LABS: ALT (SGPT) 9 U/L (8-55); AST (SGOT) 13 U/L (5-34); Albumin 4.5 g/dL (3.5-5.0); Alkaline Phosphatase 65 U/L (40-150); Anion Gap 14 mmol/L (10-20); BUN (Urea Nitrogen) 14 mg/dL (9.8-20.1); Bilirubin, Total 0.5 mg/dL (0.2-1.2); Calc. Creatinine Clearance 0 mL/min (70-130); Carbon Dioxide 27 mmol/L (22-29); Chloride 94 mmol/L (98-107); Estimated GFR-MDRD 72; Globulin 2.6 g/dL (2.4-3.5); Glucose 98 mg/dL (70-105); Protein, Total 7.1 g/dL (6.0-8.3); Sodium 131 mmol/L (136-145)
== END 2018-12-18 21:50 | disposition home or self-care (01) ==
LOC: ERS 19:27
DX: I10 Essential (primary) hypertension (principal); Z79.899 Other long term (current) drug therapy
CPT/HCPCS: 36415; 80053; 84484; 85025; 93005

== ENCOUNTER 2018-12-19 13:54 | Emergency (ER) | payer SELFPAY ==
[2018-12-19] MEDS ORDERED: Acetaminophen 500 MG TAB ONE (16:39)
[2018-12-19] MEDS ORDERED: Meclizine HCl 25 MG TAB ONE (16:39)
== END 2018-12-19 17:22 | disposition home or self-care (01) ==
LOC: ERS 13:54
DX: I10 Essential (primary) hypertension (principal); Z79.899 Other long term (current) drug therapy
CPT/HCPCS: 93005; J8597

== ENCOUNTER 2018-12-21 04:22 | Emergency (ER) | payer SELFPAY ==
--- NOTE | 2018-12-21 09:00 | CT ---
PRELIMINARY REPORT/[facility]/EMERGENCY AFTER HOURS PROCEDURE: EXAM: CT Pelvis Without Contrast, Skeletal EXAM DATE/TIME: 12/21/2018 4:57 AM CLINICAL HISTORY: 58 years old, female; Injury or trauma; Fall; Initial encounter; Blunt trauma (contusions or hematoma s); Patient HX: F58 presents to ED for L hip pain. PT fell tonight, now having left hip pain. PT also fell yesterday due to dizziness and was seen in ED. No HX of surgeries on hip TECHNIQUE: Imaging protocol: Computed tomography images of the pelvis without contrast. Exam focused on the skel etal structures. COMPARISON: No relevant prior studies available. FINDINGS: Appendix: The appendix is unremarkable. Bladder: The wall of the urinary bladder is mildly thickened. Reproductive: The uterus is not identified. Intraperitoneal space: There is a 3.6 x 2.4 x 5.6 cm cystic structure or fluid collection adjacent to the right pelvic sidewall. Bones/joints: There are degenerative changes in the spine. Soft tissues: Unremarkable. IMPRESSION: 1. No fracture or dislocation identified. 2. Cystic structure adjacent to the right pelvic sidewall. It may be adnexal or musculoskeletal in or igin. Thank you for allowing us to participate in the care of your patient. Dictated and Authenticated by: Domenico Hernadez MD 12/21/2018 5:29 AM Central Time ([place] & [place]) FINAL REPORT PELVIC CT SCAN WITHOUT IV CONTRAST: EMERGENCY AFTER HOURS EXAM TIME: 4:58 a.m. DATE: 12/21/2018. No acute fracture or dislocation. Thin-walled 2.4 x 3.6 x 5.6 cm diameter cystic structure adjacent to the right pelvic sidewall of uncertain etiology or significance. Normal-appearing appendix. This report is in agreement with the preliminary report. POS: [facility]
== END 2018-12-21 05:51 | disposition home or self-care (01) ==
LOC: ERS 04:22
DX: S70.02XA Contusion of left hip, initial encounter (principal); I10 Essential (primary) hypertension; W19.XXXA Unspecified fall, initial encounter
CPT/HCPCS: 72192

== ENCOUNTER 2018-12-22 09:42 | Emergency (ER) | payer SELFPAY ==
--- NOTE | 2018-12-22 10:46 | RAD ---
2 views left hip: 12/22/2018 COMPARISON: 05/20/2017 HISTORY: Fall, trauma, pain FINDINGS: There is enthesophyte formation in the region of the greater trochanter. No displaced fract ure or evidence of dislocation is seen. If symptoms persist, follow-up cross-sectional imaging advised to exclude radio-occult fracture. IMPRESSION: No acute fracture or evidence of dislocation is appreciated. If symptoms persist, cross-s ectional imaging may be beneficial.
[2018-12-22] MEDS ORDERED: Ibuprofen 200 MG TAB ONE (11:00)
== END 2018-12-22 11:06 | disposition home or self-care (01) ==
LOC: ERS 09:42
DX: M25.552 Pain in left hip (principal); I10 Essential (primary) hypertension; Z79.899 Other long term (current) drug therapy; W18.30XA Fall on same level, unspecified, initial encounter

== ENCOUNTER 2018-12-22 22:36 | Emergency (ER) | payer SELFPAY ==
[2018-12-23] MEDS ORDERED: Meclizine HCl 25 MG TAB ONE ×2 (00:52→00:53)
== END 2018-12-23 01:57 | disposition home or self-care (01) ==
LOC: ERS 22:36
DX: I10 Essential (primary) hypertension (principal); Z79.899 Other long term (current) drug therapy
CPT/HCPCS: 99283; J8597

== ENCOUNTER 2018-12-24 08:54 | Emergency (ER) | payer SELFPAY ==
[2018-12-24] MEDS ORDERED: Ibuprofen 200 MG TAB ONE (11:17)
== END 2018-12-24 11:56 | disposition home or self-care (01) ==
LOC: ERS 08:54
DX: S00.01XA Abrasion of scalp, initial encounter (principal); Z79.899 Other long term (current) drug therapy; W19.XXXA Unspecified fall, initial encounter
CPT/HCPCS: 99281

== ENCOUNTER 2018-12-24 14:06 | Emergency (ER) | payer SELFPAY | END 2018-12-24 15:29 | disposition home or self-care (01) | LOC: ERS 14:06 | DX: F10.20 Alcohol dependence, uncomplicated (principal); I10 Essential (primary) hypertension; Z79.1 Long term (current) use of non-steroidal anti-inflammatories (NSAID); Z79.899 Other long term (current) drug therapy | CPT/HCPCS: 99284 ==

== ENCOUNTER 2018-12-26 09:04 | Inpatient (IN) | payer SELFPAY ==
--- NOTE | 2018-12-26 10:03 | CT ---
EXAM: CT Brain WO Con PROVIDED CLINICAL HISTORY: Recent falls COMPARISON: 05/25/2017 FINDINGS: Interval development of 4.3 cm round mass in the right frontal/caudate region with prominent surround ing vasogenic edema. Associated obliteration of the frontal horn of the right lateral ventricle. The ventricular system is mildly dilated with respect to the prior study. There is a questioned nodul e within the left lateral aspect of the third ventricle. There is no evidence for intracranial hemorrhage. The basilar cisterns appear patent. There is no shift of the falx apparent. There is foca l white matter hypodensity in the left high frontal region which may reflect microvascular ischemic change or vasogenic edema. The extracranial soft tissues and osseous structures demonstrate no acute abnormality. IMPRESSION: Development of 4.3 cm right frontal region mass compatible with malignancy. Questioned third ventricu lar mass and possible left frontal white matter vasogenic edema. Correlation with MRI brain with and without IV contrast is recommended.
[2018-12-26 10:07] LABS: #Lymphocytes 1.1 thou/uL (1.20-3.40); #Monocytes 0.4 thou/uL (0.11-0.59); #Neutrophils 4.5 thou/uL (1.40-6.50); %Basophils 0.2 % (0.0-1.0); %Eosinophils 0.6 % (0.0-10.0); %Lymphocytes 18.2 % (21.0-51.0); %Monocytes 7.1 % (0.0-10.0); %Neutrophils 73.8 % (42.0-75.0); Hemoglobin 15.3 g/dL (12.0-16.0); Mean Corpuscular HGB CONC 34.8 g/dL (32.0-36.0); Mean Corpuscular Hemoglobin 34.2 pg (27.0-31.0); Mean Corpuscular Volume 98.4 fL (78.0-98.0); Mean Platelet Volume 6.8 fL (7.4-10.4); Platelet Count 306 thou/uL (130-400); RBC Distribution Width 12.1 % (11.5-14.5); Red Blood Cell (RBC) Count 4.46 mill/uL (4.20-5.40)
[2018-12-26 10:13] LABS: ALT (SGPT) 11 U/L (8-55); AST (SGOT) 17 U/L (5-34); Albumin 4.9 g/dL (3.5-5.0); Alkaline Phosphatase 63 U/L (40-150); Anion Gap 20 mmol/L (10-20); BUN (Urea Nitrogen) 9 mg/dL (9.8-20.1); Bilirubin, Total 0.8 mg/dL (0.2-1.2); Calc. Creatinine Clearance 0 mL/min (70-130); Calcium 10.6 mg/dL (7.8-10.44); Carbon Dioxide 23 mmol/L (22-29); Chloride 91 mmol/L (98-107); Estimated GFR-MDRD 71; Globulin 3.1 g/dL (2.4-3.5); Glucose 96 mg/dL (70-105); Potassium 3.6 mmol/L (3.5-5.1); Sodium 130 mmol/L (136-145)
[2018-12-26] MEDS ORDERED: Calcium Carbonate 500 MG ChewTAB PO PRN (10:26)
[2018-12-26] MEDS ORDERED: Bisacodyl 10 MG SUPP PR PRN (10:26)
[2018-12-26] MEDS ORDERED: Ondansetron PF 4 MG/2 ML Vial IVP PRN (10:26)
[2018-12-26] MEDS ORDERED: Acetaminophen 650 MG Suppository PR PRN (10:26)
[2018-12-26] MEDS ORDERED: Ondansetron ODT 4 MG TAB PO PRN (10:26)
[2018-12-26] MEDS ORDERED: Ondansetron PF 4 MG/2 ML Vial ONE ×2 (10:31→10:43)
[2018-12-26] MEDS ORDERED: Dexamethasone 10 MG/ML VIAL ONE (10:33)
[2018-12-26] MEDS ORDERED: Iopamidol 370 76% 50 ML VIAL FS ONE (10:35)
[2018-12-26] MEDS ORDERED: ISOVUE-370 76%-LOCM 1 ML ONE (10:35)
[2018-12-26] MEDS ORDERED: Gadobenate Dimeglumine 529 MG/1 ML (20ML VIAL) ONE (10:40)
[2018-12-26] MEDS ORDERED: Labetalol HCl 100 MG/20 ML VIAL ONE (11:43)
[2018-12-26] MEDS ORDERED: Acetaminophen 500 MG TAB ONE (11:57)
[2018-12-26] MEDS ORDERED: Magnesium Sulfate 4 GM in Sodium Chloride 0.9% 250 ML 250 ML IVPB SCH (13:15)
--- NOTE | 2018-12-26 13:26 | CT ---
EXAM: CT chest, abdomen and pelvis with IV contrast PROVIDED CLINICAL HISTORY: Brain mass FINDINGS: Comparison is made with the CT examinations dated 02/22/2018, 12/21/2018 and 03/21/2013. Small pericardial effusion. The heart, pericardium and great vessels demonstrate an otherwise unremar kable CT appearance.. Lungs are free of significant opacity. No pleural fluid or pneumothorax apparent. No evidence for thoracic lymph node enlargement. The solid abdominal organs demonstrate an unremarkable CT appearance. No bowel dilatation, inflammato ry fat stranding, free fluid or free air apparent. The major vascular structures appear normal. Stable right pelvic sidewall cystic mass, etiology and significance uncertain. No evidence for region al lymph node enlargement. Surgical clips are seen within the retroperitoneum. The osseous structures demonstrate no concerning lytic or blastic lesions. IMPRESSION: 1. Small pericardial effusion. 2. Stable right pelvic sidewall cystic mass.
[2018-12-26] MEDS: Sodium Chloride 0.9% 1,000 ML IV SCH (14:00)
[2018-12-26] MEDS: Dexamethasone 4 mg/ml Vial SLOW IVP SCH ×2 (14:01→17:30)
--- NOTE | 2018-12-26 16:09 | MRI ---
EXAM: MRI of the brain without and with contrast HISTORY: Brain mass seen on CT COMPARISON: CT brain 12/26/2018 TECHNIQUE: Multiplanar multisequence MR images were obtained of the brain without and with IV contras t. FINDINGS: There is a heterogeneously enhancing 6.2 x 4.0 x 4.6 cm mass in the right frontal lobe abutting the r ight lateral ventricle. Surrounding vasogenic edema is seen. There is enhancing nodularity along the wall of the right lateral ventricle suggesting interventricular extension of the tumor or a prima ry tumor arising from the choroid plexus. There is subtle restricted diffusion along the periphery of this mass. There are small areas of susceptibility artifact in the center of the mass which may re present areas of hemosiderin deposition as calcifications are not seen on CT. Moderate hydronephrosis. Scattered foci of high FLAIR signal in the subcortical and periventricular white matter are likely se condary to small vessel ischemic disease. No extra-axial fluid collection or intracranial hemorrhage. The expected flow voids are present. Corpus callosum, pituitary, and craniocervical junction are within normal limits. The calvarium and overlying soft tissues are unremarkable. The paranasal sinuses and mastoid air cells are well aerated. IMPRESSION: Large mass right frontal lobe appears to have intraventricular extension and associated hydrocephalus . This could represent a solitary metastatic lesion with intraventricular extension or a primary brain malignancy.
--- NOTE | 2018-12-26 18:25 | CON ---
DATE OF CONSULTATION: HISTORY OF PRESENT ILLNESS: Ms. Spear is a 58-year-old female, who was brought by EMS to the emergency department this morning with confusion, hypertension, dizziness, and headache. CT scan of her head was done in the emergency department, which indicated a right-sided frontal lobe mass with vasogenic edema. Neurosurgery was consulted. While she was brought in her hospital room, she is resting comfortably. She is alert and oriented x2. She knows who she is and where she is, but is confused on the day and the month. She is processing information slowly. She is following all commands subsequently. She has equal strength bilaterally. No change in sensation. Cranial nerves are tested and intact. Her right pupil is slightly larger than the left, but both are round and reactive. The patient complains that she has a headache and she is nauseous, but otherwise she is feeling okay. The patient has history of uterine cancer, treated with surgery with metastasis to the lymph nodes locally. REVIEW OF SYSTEMS: A 10-point review of systems has been completed and is negative other than stated in the above HPI. ALLERGIES: NO KNOWN DRUG ALLERGIES. MEDICATIONS: Lisinopril. PAST MEDICAL HISTORY: Malignancy at primary site uterus, history of ethanol abuse, DTs, and hypertension. PAST SURGICAL HISTORY: Breast implants, cancerous tumor removed from uterus as well as lymph nodes surrounding the tumor. SOCIAL HISTORY: The patient lives alone, is a former alcohol abuser. She states last drink was November 02. No smoking history. Denies drug use. PHYSICAL EXAMINATION: VITAL SIGNS: Blood pressure 170/129, heart rate 96, respirations 16, O2 sats 95% on room air, and temperature 97.8. CONSTITUTION: The patient is alert and oriented x2. She is afebrile, hypertensive, appears nontoxic. HEENT: Head is normocephalic and atraumatic. Pupils, right is 1 to 2 mm larger than the left. Both are round and reactive. Extraocular movements are intact. Hearing is intact. Moist mucous membranes. RESPIRATION: Normal work of breathing on room air. EXTREMITIES: The patient is moving all 4 extremities. She has normal range of motion and 5/5 strength in deltoids, biceps, triceps, fabrication and layout craftsman strength, hip flexion, hip extension, knee flexion, knee extension, dorsiflexion, plantarflexion. NEUROLOGIC: The patient is awake and alert x2. She is aware of person and place, confusion about the day and the month. Speech is spontaneous and fluent. She has some slow comprehension. She is following commands slowly. Her processing is delayed. She appears a little flat. Cranial nerves 2 through 12 are tested and intact. There are no lateralizing motor or sensory deficits. Her [id number] is slow, but smooth and equal on both sides. Ojlc-gi-[id number] is done smoothly. IMAGING STUDIES: CT brain shows development of a 4.3 cm right frontal region mass compatible with malignancy, question third ventricular mass and possible left white matter vasogenic edema. ASSESSMENT AND PLAN: Ms. Spear is a 58-year-old female with a newly found brain mass. She will be admitted with the hospitalist's group. Consulting Neurosurgery and Oncology. We will get a brain MRI with and without contrast with [facility] protocol. Chest, abdomen, and pelvis have been ordered. Decadron has been given in the ER and will be started for q.6 neuro checks, and when we have further information about imaging, we will have more of a plan to discuss at that time. I feel blood pressure will be under 150 systolic and treat any electrolyte abnormalities. If there are any further questions, please contact the Neurosurgery Team. Job ID: [id number]
[2018-12-26] MEDS: Acetaminophen 325 MG TAB PO PRN (20:50)
[2018-12-26] MEDS: Pantoprazole 40 MG VIAL IVP SCH (20:50)
[2018-12-27] MEDS ORDERED: hydrALAZINE 20 MG/ML VIAL SLOW IVP PRN (00:26)
[2018-12-27] MEDS: Dexamethasone 4 mg/ml Vial SLOW IVP SCH ×4 (00:56→17:07)
[2018-12-27] MEDS: Sodium Chloride 0.9% 1,000 ML IV SCH ×2 (06:16→17:05)
[2018-12-27] MEDS: Acetaminophen/Codeine 30-300mg Tablet PO PRN ×3 (08:24→22:33)
[2018-12-27] MEDS: Multivit, Therapeutic 1 TAB PO SCH (08:27)
[2018-12-27] MEDS: Thiamine 100 MG TAB PO SCH (08:27)
[2018-12-27] MEDS: Folic Acid 1 MG TAB PO SCH (08:34)
[2018-12-27] MEDS: Pantoprazole 40 MG VIAL IVP SCH ×2 (08:37→20:57)
[2018-12-27 08:54] LABS: #Lymphocytes 0.4 thou/uL (1.20-3.40); #Monocytes 0.1 thou/uL (0.11-0.59); %Basophils 0.5 % (0.0-1.0); %Eosinophils 0.6 % (0.0-10.0); %Lymphocytes 6.5 % (21.0-51.0); %Monocytes 1.7 % (0.0-10.0); %Neutrophils 90.8 % (42.0-75.0); Hemoglobin 15.2 g/dL (12.0-16.0); Mean Corpuscular HGB CONC 33.7 g/dL (32.0-36.0); Mean Corpuscular Volume 97.9 fL (78.0-98.0); Mean Platelet Volume 6.8 fL (7.4-10.4); Platelet Count 344 thou/uL (130-400); RBC Distribution Width 12.6 % (11.5-14.5); Red Blood Cell (RBC) Count 4.61 mill/uL (4.20-5.40); White Blood Cell (WBC) Count 6.6 thou/uL (4.8-10.8)
--- NOTE | 2018-12-27 09:01 | PRG ---
DATE OF SERVICE: 12/27/2018 I personally interviewed and examined the patient, reviewed imaging and records and agreed with the notes of Clara Galo PA-C, dated 12/26/2018. Briefly, Jazmine Spear is a 58-year-old woman, who came to the emergency department yesterday with headache and some confusion. CT examination of the brain revealed the mass centered at the tip of the frontal horn of the right lateral ventricle and in the depths of the right frontal lobe. Ms. Spear has a history of uterine cancer, and a CT of the chest, abdomen, and pelvis was done. An MRI scan of the brain was done as well. Overnight, Ms. Spear continued to have some discomfort in the head and she does admit her memory is not what it used to be. Overnight, the vitals have been reasonably stable. I do not see any fevers recorded. There was one blood pressure in the 180 range, but the remainder of the recorded blood pressures this morning have been in the 130s. On examination, Ms. Spear is able, awake, and answers question. She appears drowsy. She does not remember her son's phone numbers. She is not sure exactly what the date is. Although there is no focal cranial neuropathy and no drift or neglect, there is a deficit of concentration and alertness. I reviewed MR imaging of the brain and the CT chest, abdomen, and pelvis. There is no evidence of tumor elsewhere. The brain scan is concerning. There is heterogeneously enhancing mass at the depth of the right frontal lobe, which maybe centered on the ependyma of the frontal horn of the right lateral ventricle. There is some tumor deposition within the ventricular system. There is enhancement of the ependymal lining. There is a chunky enhancement at the septum pellucidum and some even within the third ventricle. Ms. Spear has a fairly aggressive malignancy. It is not clear whether this is metastatic or glioblastoma or another intrinsic brain tumor. It certainly has accessed in the CSF space and has seeded already. Headache maybe from some slow CSF circulation. The fact that there is studding in the ventricular system portends a bad outcome if this is a primary lesion. Nonetheless, I think debulking the majority of the tumor could give us more time to treat her. She seems ambivalent about treatment, honestly. An open surgical intervention would also give us a diagnosis and allow us to plan chemoradiotherapy after her surgical intervention. If she and her family do not wish to have surgical intervention, I suggest no treatment. I am going to give her a day to contact her sons, talk to her loved ones about her wishes and make a plan. We will keep our spot at the operating room open for tomorrow morning for potential craniotomy and tumor resection should she so desire. Job ID: [id number]
[2018-12-27 09:15] LABS: ALT (SGPT) 11 U/L (8-55); AST (SGOT) 12 U/L (5-34); Albumin 4.6 g/dL (3.5-5.0); Alkaline Phosphatase 56 U/L (40-150); Anion Gap 17 mmol/L (10-20); BUN (Urea Nitrogen) 13 mg/dL (9.8-20.1); Bilirubin, Total 0.6 mg/dL (0.2-1.2); Calc. Creatinine Clearance 65 mL/min (70-130); Calcium 10.3 mg/dL (7.8-10.44); Carbon Dioxide 23 mmol/L (22-29); Chloride 95 mmol/L (98-107); Estimated GFR-MDRD 81; Globulin 2.8 g/dL (2.4-3.5); Glucose 134 mg/dL (70-105); Magnesium 2.1 mg/dL (1.6-2.6); Phosphorus 3.3 mg/dL (2.3-4.7); Potassium 3.8 mmol/L (3.5-5.1); Protein, Total 7.4 g/dL (6.0-8.3); Sodium 131 mmol/L (136-145)
--- NOTE | 2018-12-27 09:29 | HP ---
The patient was seen and examined on December 26, 2018. CHIEF COMPLAINT: Elevated blood pressure. HISTORY OF PRESENT ILLNESS: The patient is a 58-year-old female, who is a poor historian with hypertension, presented to the hospital with elevated blood pressure along with lightheadedness and dizziness. Please note that the patient is a poor historian and not much information is available from the patient. She mentions that she had elevated blood pressure at home, for which she called EMS. She denies any blurring of vision, facial asymmetry, weakness, numbness of any of her extremities. No chest pain, palpitations, fever, chills, recent fall reported. When EMS arrived, her blood pressure was 220/140. She received nitroglycerin and was brought into the emergency room. She states that she takes lisinopril on a daily basis. Again, not much information is available from the patient. PAST MEDICAL HISTORY: 1. Hypertension, history of alcoholism with hospitalization for alcohol withdrawal last year. 2. History of uterine cancer, currently in remission per patient report. 3. Hospitalization for hypertensive urgencies in the past. PAST SURGICAL HISTORY: 1. Breast implants. 2. Uterine cancer removal. She is unable to provide further details. ALLERGIES: NO KNOWN DRUG ALLERGIES. CURRENT HOME MEDICATION: The patient states that she takes lisinopril, unable to provide the dose. SOCIAL HISTORY: The patient currently lives at home alone. She is a former alcohol abuser. She denies any smoking or drug use. FAMILY HISTORY: Mother with breast cancer. REVIEW OF SYSTEMS: Cannot be reliably obtained from the patient due to current mentation. PHYSICAL EXAMINATION: VITAL SIGNS: In the emergency room showed temperature 97.8, respirations of 16, pulse rate of 100, blood pressure of 151/113, O2 saturation of 95% on room air. GENERAL: A 58-year-old female in no apparent distress. HEENT: Head, atraumatic and normocephalic. Sclerae anicteric. Pupils 3 mm on the left and 5 mm on the right with good response to light. No oral lesion. NECK: Supple. No JVD. No neck stiffness. LUNGS: Clear to auscultation bilaterally. HEART: S1, S2 present. Regular rate and rhythm. No rubs or gallops. ABDOMEN: Soft, nontender. Bowel sounds present. EXTREMITIES: No edema or calf tenderness. NEUROLOGIC: Exam was limited due to confusion. However, limited neurological examination showed no focal findings. She was able to follow commands with some black lag. Cranial nerves 2 through 12 are normal on examination. Zdtuis-fu-qbbv test was normal, however, slow. PSYCHIATRY: As discussed above. LYMPH NODES: No palpable lymph nodes in the neck. PERIPHERAL VASCULAR: Radial pulses palpable bilaterally. MUSCULOSKELETAL: No joint swelling or tenderness. LABORATORY FINDINGS: Magnesium 1.4, BUN 9, and creatinine 0.82, sodium 130, WBC 6.0 with hemoglobin 15.3. MRI of the brain by my review showed large frontal lobe mass with vasogenic edema. CT scan of the chest, abdomen and pelvis by my review showed small pericardial effusion with stable right pelvic sidewall cystic mass. IMPRESSION: 1. New diagnosis of right frontal lobe mass with vasogenic edema. 2. History of uterine cancer. 3. Hyponatremia and hypomagnesemia. 4. Encephalopathy secondary to #1. 5. History of alcoholism in the past. 6. Small pericardial effusion on the CT. 7. Hypertension with hypertensive urgency. 8. Medication noncompliance. 9. Chronic kidney disease, stage 2. PLAN: The patient will be monitored in the Stroke Unit. We will continue IV Decadron along with PPIs. Neurosurgery will be consulted. We will replace magnesium. We will keep the patient n.p.o. IV fluids. Oncology has been consulted as well. Plan of care was discussed with the patient in detail. We will discuss the plan with the family when they arrive. Job ID: [id number]
[2018-12-27] MEDS ORDERED: Labetalol HCl 100 MG/20 ML VIAL SLOW IVP PRN (11:36)
[2018-12-27] MEDS ORDERED: Sodium Chloride 0.9% 1,000 ML IV SCH (11:43)
[2018-12-27] MEDS ORDERED: Lisinopril 10 MG TAB PO SCH (11:45)
[2018-12-27] MEDS: Ondansetron PF 4 MG/2 ML Vial IVP PRN ×3 (12:29→22:33)
--- NOTE | 2018-12-27 16:25 | CT ---
EXAM: CT brain without contrast HISTORY: Brain mass COMPARISON: MRI brain 12/26/2018 TECHNIQUE: Multiple contiguous axial images were obtained and a CT of the brain without contrast. FINDINGS: There is a large hyperdense mass in the right frontal lobe with surrounding vasogenic edema . There may be intraventricular extension of the mass seen medially. Prominence of the lateral ventricles may represent hydrocephalus. There is no evidence of intracranial hemorrhage or extra-axia l fluid collection. There are scattered hypodensities in the subcortical and periventricular white matter, likely secondary to small vessel ischemic disease. The calvarium and overlying soft tissues are unremarkable. The visualized paranasal sinuses and masto id air cells are well aerated. IMPRESSION: Right frontal lobe mass as above
--- NOTE | 2018-12-27 16:29 | PDOC.HOSPP ---
- Subjective Encounter Date: 12/27/18 Encounter Time: 10:40 Subjective: Patient seen and examined for brain mass. No new focal deficits. Some nausea and gen headache. No other complaints. No overnight events - Objective Vital Signs & Weight: Vital Signs (12 hours) Temp Pulse Resp BP BP Pulse Ox 12/27/18 15:01 98.1 F 109 H 18 153/94 H 94 L 12/27/18 13:12 154/104 H 12/27/18 11:05 98.2 F 108 H 18 150/104 H 95 12/27/18 08:16 95 12/27/18 08:00 98.3 F 110 H 17 171/111 H 95 12/27/18 06:09 93 L Weight Weight 110 lb 7.225 oz Most Recent Monitor Data Heart Rate from ECG 79 NIBP 146/93 NIBP BP-Mean 110 Respiration from ECG 18 SpO2 100 I&O: 12/26/18 12/27/18 12/28/18 06:59 06:59 06:59 Output Total 202 Balance -202 Result Diagrams: 12/27/18 08:39 12/27/18 08:39 Additional Labs: Accuchecks 12/27/18 12/27/18 12/27/18 11:42 06:07 00:14 POC Glucose 127 H 137 H 139 H 12/26/18 18:32 POC Glucose 138 H Radiology Reviewed by me: Yes (CT brain - Rt frontal mass) Hospitalist ROS - Review of Systems Respiratory: denies: cough, dry, shortness of breath, hemoptysis, SOB with excertion, pleuritic pain, sputum, wheezing, other Cardiovascular: denies: chest pain, palpitations, orthopnea, paroxysmal noc. dyspnea, edema, light headedness, other - Medication Medications: Active Medications Generic Name Dose Route Start Last Admin Trade Name Freq PRN Reason Stop Dose Admin Acetaminophen 650 mg 12/26/18 10:26 12/26/18 20:50 Tylenol PO 650 mg Q4H PRN Administration Headache/Fever/Mild Pain (1-3) Acetaminophen/Codeine Phosphate 1 tab 12/27/18 08:05 12/27/18 13:09 Tylenol #3 PO 1 tab Q4H PRN Administration Mild Pain (1-3) Acetaminophen/Codeine Phosphate 2 tab 12/27/18 08:06 12/27/18 08:24 Tylenol #3 PO 2 tab Q4H PRN Administration Moderate Pain (4-6) Dexamethasone 4 mg 12/26/18 12:00 12/27/18 11:56 Decadron SLOW IVP 4 mg Q6HR LALITHA Administration Folic Acid 1 mg 12/27/18 09:00 12/27/18 08:34 Folvite PO Not Given DAILY LALITHA Hydralazine HCl 10 mg 12/27/18 00:26 12/27/18 00:55 Apresoline SLOW IVP 10 mg Q4H PRN Administration SBP Greater Than 180 Sodium Chloride 1,000 mls @ 30 mls/hr 12/27/18 11:43 12/27/18 11:56 Normal Saline 0.9% IV 1,000 mls .Q24H LALITHA Administration Multivitamins 1 tab 12/27/18 09:00 12/27/18 08:27 Theragran PO Not Given DAILY LALITHA Ondansetron HCl 4 mg 12/27/18 08:55 12/27/18 12:29 Zofran IVP 4 mg Q4H PRN Administration Nausea/Vomiting Pantoprazole Sodium 40 mg 12/26/18 21:00 12/27/18 08:37 Protonix IVP 40 mg Q12HR LALITHA Administration Sodium Chloride 10 ml 12/27/18 09:00 12/27/18 08:18 Flush - Normal Saline IVF 10 ml Q12HR LALITHA Administration Sodium Chloride 10 ml 12/27/18 00:31 12/27/18 00:56 Flush - Normal Saline IVF 10 ml PRN PRN Administration Saline Flush Thiamine HCl 100 mg 12/27/18 09:00 12/27/18 08:27 Thiamine PO 100 mg DAILY LALITHA Administration - Exam General Appearance: NAD Neck: supple, no JVD Heart: RRR, no murmur, no gallops, no rubs Respiratory: CTAB, no wheezes, no rales, no ronchi Gastrointestinal: soft, non-tender, non-distended, normal bowel sounds Extremities: no edema Hosp A/P - Plan IMPRESSION: 1. New diagnosis of right frontal lobe mass with vasogenic edema. 2. History of uterine cancer. 3. Hyponatremia and hypomagnesemia. 4. Encephalopathy secondary to #1. 5. History of alcoholism in the past. 6. Small pericardial effusion on the CT. 7. Hypertension with hypertensive urgency. 8. Medication noncompliance. 9. Chronic kidney disease, stage 2. PLAN: Continue IV Decadron with PPIs. NPO past MN Cont gentle IVF PT/OT AM labs Echo pending Resume Lisinopril Palliative care consultation
[2018-12-27] MEDS: Lisinopril 10 MG TAB PO SCH (20:57)
[2018-12-27] MEDS: Melatonin 3 MG TAB PO PRN (22:33)
[2018-12-28] MEDS: Dexamethasone 4 mg/ml Vial SLOW IVP SCH ×4 (01:17→17:45)
[2018-12-28] MEDS: Sodium Chloride 0.9% 1,000 ML IV SCH ×2 (03:44→17:47)
[2018-12-28 05:34] LABS: Anion Gap 11 mmol/L (10-20); BUN (Urea Nitrogen) 13 mg/dL (9.8-20.1); Calc. Creatinine Clearance 66 mL/min (70-130); Calcium 10.1 mg/dL (7.8-10.44); Carbon Dioxide 27 mmol/L (22-29); Chloride 97 mmol/L (98-107); Estimated GFR-MDRD 83; Glucose 126 mg/dL (70-105); Magnesium 1.6 mg/dL (1.6-2.6); Potassium 4.2 mmol/L (3.5-5.1); Sodium 131 mmol/L (136-145)
[2018-12-28] MEDS ORDERED: Fentanyl 250 MCG/5 ML VIAL ONE (06:11)
[2018-12-28] MEDS ORDERED: Lidocaine 0.5%/Epinephrine 1:200,000 50 ml Vial ONE (06:17)
[2018-12-28] MEDS ORDERED: Thrombin 5000 UNITS/5 ML VIAL ONE (06:18)
[2018-12-28] MEDS ORDERED: Bacitracin Zinc Ointment 30 gm TUBE ONE (06:18)
[2018-12-28] MEDS ORDERED: Sodium Chloride 0.9% 30 ML ONE (06:18)
[2018-12-28] MEDS ORDERED: Dexamethasone 4 mg/ml Vial ONE (06:19)
[2018-12-28] MEDS ORDERED: CEFAZOLIN 2 GM in Premix Bag 1 BAG IVPB SCH (06:45)
[2018-12-28] MEDS ORDERED: Magnesium Sulfate 4 GM in Sodium Chloride 0.9% 250 ML 250 ML IVPB SCH (07:00)
--- NOTE | 2018-12-28 07:06 | PRG ---
DATE OF SERVICE: 12/28/2018 I saw Jazmine Spear in the preoperative area in the hospital. She elected to proceed with craniotomy for removal of her frontal lobe tumor. Yesterday, I went over the mechanics of surgery and the risks and benefits. We covered that very briefly this morning. She wants to proceed, and we will take her to the operating room. Job ID: [id number]
[2018-12-28] MEDS ORDERED: Rocuronium Bromide 50 MG/5 ML VIAL ONE (08:58)
[2018-12-28] MEDS ORDERED: Promethazine HCl 25 MG/ML VIAL IM PRN ×2 (10:18→13:40)
[2018-12-28] MEDS ORDERED: Ondansetron HCl/PF 4 MG/2 ML Vial IVP PRN ×2 (10:18→13:40)
[2018-12-28] MEDS ORDERED: Promethazine HCl 25 MG/ML VIAL SLOW IVP PRN ×2 (10:18→13:40)
[2018-12-28] MEDS ORDERED: Sodium Chloride 0.9% 10 ML ONE (11:23)
[2018-12-28] MEDS ORDERED: Fentanyl 100 MCG/2 ML VIAL ONE ×2 (11:41→12:47)
[2018-12-28] MEDS ORDERED: Docusate 100 MG CAP PO PRN (13:02)
[2018-12-28] MEDS ORDERED: Mag-Al 1200 mg/1200 mg/30 ML UDCUP PO PRN (13:02)
[2018-12-28] MEDS ORDERED: Labetalol HCl 100 MG/20 ML VIAL ONE (13:28)
--- NOTE | 2018-12-28 13:34 | OP ---
DATE OF PROCEDURE: 12/28/2018 GUI DEVELOPER: Clara Galo PA-C PREOPERATIVE INDICATION: Make diagnosis and prevent neurological deterioration. PREOPERATIVE DIAGNOSIS: Right frontal lobe lesion, likely malignant, with some intraventricular extension. POSTOPERATIVE DIAGNOSIS: Right frontal lobe lesion, likely malignant, with some intraventricular extension. OPERATIVE PROCEDURES: [facility]LAB stereotactic assisted right frontal craniotomy, resection of right frontal tumor, and operating microscope. PREOPERATIVE MEDICATION: Ancef 2 g IV. DRAIN NUMBER: Zero. DRAIN TYPE: None. DESCRIPTION OF PROCEDURE: The patient was brought to the operating room. General endotracheal anesthesia was induced. The patient was positioned supine on the operating table and head immobilized in the Sanchez pin and patented hogshead assembler. Using the Spoonfed navigation system and the preoperative [facility] protocol CT scan, we tented registration of the patient's surface structures to create a three dimensional stereotactic space around the patient. The entire Spoonfed system crashed rather completely during the registration. It was not useful for the rest of the case. We attempted multiple times over 30 minutes to get the system running before continuing. Hair was removed from the left side of the scalp. We marked out the cervix the representation of anatomic landmarks on the scalp. We planned a curvilinear incision given its access to the right frontal lobe. Under our planned incision, we infused local anesthetic. The scalp was sterilely prepped and draped. We opened with a 10 blade knife and controlled bleeding with bipolar and monopolar cautery. We pulled the scalp flap forward leaving the temporalis bone in place. We then placed a zohra hole anterior to and one zohra hole just posterior to the coronal suture and then, one zohra hole on the coronal suture just as it did pass the superior temporal line. With these three zohra holes, we fashioned a right frontal craniotomy by stripping the dura from the undersurface of the bone. The bone was cut with a side-cutting footplate and removed from the field. We opened the dura with its long axis on the midline and folded it medially. There was a large sulcus between the superior and middle frontal gyrus. We dissected that sulcus. We brought the operative microscope into the field. Under microscopic magnification using microsurgical techniques, we reached the depth of the superior temporal sulcus and then, we entered cortex and white matter. Within 2 cm dissection, we encountered obvious high-grade neoplasm. We dissected anteriorly, laterally, and posteriorly in this plane. The neoplasm was exceedingly large. We developed a dissection in the gliotic plane around the abnormal tumor tissue. We have started debulking the tumor tissue quickly became necrotic in the center portion. This was quite dense necrotic tissue rather than a liquid filled center. We dissected posteriorly until we encountered the ventricular system behind the tumor and medially until we encountered the septum pellucidum. Dissected anteriorly, there was a small pocket of the frontal horn of the lateral ventricle and laterally, we kept our dissection as close to the tumor as possible. Within the ventricular system, any tumor nodules were visualized around the ventricle and the ependyma was grossly involved throughout. Getting a gross total resection of that material was impossible and an aggressive debulking and then, we irrigated our resection cavity. We controlled bleeding with gentle bipolar cautery. We left a large sheet of Surgicel to recreate a boundary between the ventricle and parenchyma. We harvested a pericranial tissue flap for dural closure and we sewed this in position with a running 4-0 Prolene suture in a watertight fashion. The skull was reapproximated with plates and screws. We closed the scalp in anatomical layers. We applied a sterile dressing. This was a clean case, no contamination. Job ID: [id number]
[2018-12-28] MEDS ORDERED: Labetalol HCl 100 MG/20 ML VIAL SLOW IVP PRN (13:38)
[2018-12-28] MEDS ORDERED: Ondansetron PF 4 MG/2 ML Vial ONE ×2 (14:44→14:50)
[2018-12-28] MEDS ORDERED: PHENYLEPHRINE-NS 100 MCG/ML 10 ML SYRINGE ONE (14:50)
[2018-12-28] MEDS ORDERED: PROPOFOL 200 MG/20 ML VIAL ONE (14:50)
[2018-12-28] MEDS ORDERED: Glycopyrrolate 0.2 MG/ML 5 ML SYRINGE ONE (14:50)
[2018-12-28] MEDS ORDERED: Esmolol 100 MG/10 ML VIAL ONE (14:50)
[2018-12-28] MEDS ORDERED: Lidocaine 1% PF 5 ML VIAL ONE (14:50)
[2018-12-28] MEDS ORDERED: Rocuronium Bromide 10 MG/ML (10ML VIAL) ONE (14:50)
[2018-12-28] MEDS: hydrALAZINE 20 MG/ML VIAL SLOW IVP PRN (15:44)
[2018-12-28] MEDS: CEFAZOLIN 2 GM in Premix Bag 1 BAG IVPB SCH ×2 (15:44→21:12)
[2018-12-28] MEDS: Pantoprazole 40 MG VIAL IVP SCH ×2 (15:51→20:57)
[2018-12-28] MEDS: Folic Acid 1 MG TAB PO SCH (15:51)
[2018-12-28] MEDS: Lisinopril 10 MG TAB PO SCH ×2 (15:51→21:05)
[2018-12-28] MEDS: Multivit, Therapeutic 1 TAB PO SCH (15:51)
[2018-12-28] MEDS: Cyanocobalamin (Vitamin B-12) 1,000 MCG TAB PO SCH (15:51)
[2018-12-28] MEDS: Thiamine 100 MG TAB PO SCH (15:52)
[2018-12-28] MEDS: Ondansetron PF 4 MG/2 ML Vial IVP PRN (16:37)
[2018-12-28] MEDS: Morphine 2 MG/ML SYRINGE SLOW IVP PRN ×2 (17:45→20:56)
--- NOTE | 2018-12-28 21:40 | PDOC.HOSPP ---
- Subjective Encounter Date: 12/28/18 Encounter Time: 19:30 Subjective: Patient seen and examined for brain mass s/p craniotomy. No new complaints. No overnight events - Objective Vital Signs & Weight: Vital Signs (12 hours) Temp Pulse BP Pulse Ox 12/28/18 21:05 141/101 H 12/28/18 20:00 97 12/28/18 19:02 97 12/28/18 19:00 98.2 F 12/28/18 15:51 161/83 H 12/28/18 15:44 66 161/83 H 12/28/18 15:10 93 L Weight Admit Weight 110 lb 7.225 oz Weight 110 lb 7.225 oz Most Recent Monitor Data Heart Rate from ECG 79 NIBP 146/93 NIBP BP-Mean 110 Respiration from ECG 18 SpO2 100 I&O: 12/27/18 12/28/18 12/29/18 06:59 06:59 06:59 Intake Total 424 295 Output Total 202 425 Balance -202 424 -130 Result Diagrams: 12/27/18 08:39 12/29/18 03:40 Additional Labs: Accuchecks 12/28/18 12/28/18 18:26 00:24 POC Glucose 128 H 121 H EKG Reviewed by me: Yes (Tele SR) Hospitalist ROS - Review of Systems ROS unobtainable: due to mental status - Medication Medications: Active Medications Generic Name Dose Route Start Last Admin Trade Name Freq PRN Reason Stop Dose Admin Acetaminophen 650 mg 12/26/18 10:26 12/26/18 20:50 Tylenol PO 650 mg Q4H PRN Administration Headache/Fever/Mild Pain (1-3) Acetaminophen/Codeine Phosphate 1 tab 12/27/18 08:05 12/27/18 13:09 Tylenol #3 PO 1 tab Q4H PRN Administration Mild Pain (1-3) Acetaminophen/Codeine Phosphate 2 tab 12/27/18 08:06 12/27/18 22:33 Tylenol #3 PO 2 tab Q4H PRN Administration Moderate Pain (4-6) Cyanocobalamin 1,000 mcg 12/28/18 09:00 12/28/18 15:51 Vitamin B-12 PO Not Given DAILY LALITHA Dexamethasone 4 mg 12/26/18 12:00 12/28/18 17:45 Decadron SLOW IVP 4 mg Q6HR LALITHA Administration Folic Acid 1 mg 12/27/18 09:00 12/28/18 15:51 Folvite PO Not Given DAILY LALITHA Hydralazine HCl 10 mg 12/28/18 13:05 12/28/18 15:44 Apresoline SLOW IVP 10 mg Q4H PRN Administration Sbp Greater Than 140 Sodium Chloride 1,000 mls @ 70 mls/hr 12/27/18 16:30 12/28/18 17:47 Normal Saline 0.9% IV Not Given .[id number] LALITHA Cefazolin Sodium/Dextrose 2 gm 50 mls @ 100 mls/hr 12/28/18 14:00 12/28/18 21 :12 / Device IVPB 12/28/18 22:29 50 mls Q8HR LALITHA Administration Lisinopril 10 mg 12/27/18 21:00 12/28/18 21:05 Zestril PO 10 mg BID LALITHA Administration Melatonin 3 mg 12/27/18 22:21 12/27/18 22:33 Melatonin PO 3 mg HS PRN Administration Insomnia Morphine Sulfate 2 mg 12/28/18 13:02 12/28/18 20:56 Morphine SLOW IVP 2 mg Q1H PRN Administration Moderate breakthrough pain Multivitamins 1 tab 12/27/18 09:00 12/28/18 15:51 Theragran PO Not Given DAILY [facility] Ondansetron HCl 4 mg 12/27/18 08:55 12/28/18 16:37 Zofran IVP 4 mg Q4H PRN Administration Nausea/Vomiting Pantoprazole Sodium 40 mg 12/26/18 21:00 12/28/18 20:57 Protonix IVP 40 mg Q12HR LALITHA Administration Sodium Chloride 10 ml 12/27/18 09:00 12/28/18 21:05 Flush - Normal Saline IVF 10 ml Q12HR LALITHA Administration Sodium Chloride 10 ml 12/27/18 00:31 12/28/18 01:17 Flush - Normal Saline IVF 10 ml PRN PRN Administration Saline Flush Thiamine HCl 100 mg 12/27/18 09:00 12/28/18 15:52 Thiamine PO Not Given DAILY LALITHA - Exam General Appearance: NAD Neck: supple, no JVD Heart: RRR, no gallops Respiratory: CTAB, no rales Gastrointestinal: soft, non-tender, normal bowel sounds Extremities: no edema Hosp A/P - Plan IMPRESSION: 1. New diagnosis of right frontal lobe mass with vasogenic edema. 2. History of uterine cancer. 3. Hyponatremia and hypomagnesemia. 4. Encephalopathy secondary to #1. 5. History of alcoholism in the past. 6. Small pericardial effusion on the CT. 7. Hypertension with hypertensive urgency. 8. Medication noncompliance. 9. Chronic kidney disease, stage 2. PLAN: Cont supportive care Cont IVF AM labs Cont other meds as above
[2018-12-29] MEDS: Dexamethasone 4 mg/ml Vial SLOW IVP SCH ×5 (00:31→23:25)
--- NOTE | 2018-12-29 01:03 | CON ---
DATE OF CONSULTATION: REASON FOR CONSULT: Brain lesion. HISTORY OF PRESENT ILLNESS: Ms. Spear is a 58-year-old female, who was brought to the emergency room for altered mental status. She had a CT scan of her brain done in the emergency room, which indicated a large frontal lobe mass with vasogenic edema. She was started on steroids and Neurosurgery was consulted. The patient has a history of a uterine mass found in April 2017. It involved the cervix and uterus. The patient was seen by Dr. Ambreen Vergara in [place], path is unavailable at this time. She did undergo a chest, abdomen, and pelvis CT on this admission. There was a small pericardial effusion. There was a stable right pelvic sidewall cystic mass noted. She has undergone a craniotomy for tumor excision and is currently in the ICU. History was obtained from medical records as the patient is poorly responsive postoperatively. PAST MEDICAL HISTORY: 1. Uterine mass. 2. History of alcoholism. 3. Hypertension. PAST SURGICAL HISTORY: 1. Uterine mass removal. 2. Breast implants. ALLERGIES: NO KNOWN DRUG ALLERGIES. HOME MEDICATIONS: Lisinopril. FAMILY HISTORY: Unknown. SOCIAL HISTORY: Lives alone. Apparently has continued to drink with her last drink on November 02. No tobacco or illicit drug use. REVIEW OF SYSTEMS: Unable to obtain due to postsurgical condition. PHYSICAL EXAMINATION: VITAL SIGNS: Temperature is 97.9, pulse is 66, respiratory rate 20, BP is 161/ 83. She is 94% on room air. GENERAL: This is a well-developed, well-nourished female, in no acute distress. HEENT: She has a dressing in place, which is clean, dry, and intact. CV: Regular rate and rhythm. LUNGS: Clear. ABDOMEN: Soft and nontender. Bowel sounds are positive. EXTREMITIES: There is no clubbing, cyanosis, or edema. SKIN: No rash. HEMATOLOGICAL: No petechiae or purpura. NEUROLOGICAL: Unable to assess secondary to postoperative sedation. PERTINENT LABORATORY DATA AND X-RAYS: Current WBCs are 6.6, hemoglobin 15.2, hematocrit 45.1, platelet count 344,000, 91% neutrophils, and 6% lymphocytes. Sodium is 131, potassium 4.2, chloride 97, CO2 is 27, BUN is 13, creatinine 0.72 , calcium 10.1, bilirubin 0.6, AST is 12, ALT is 11, alkaline phosphatase is 56. Serum total protein 7.4, albumin 4.6, globulin 2.8. Radiology per HPI. ASSESSMENT: 1. Large right frontal lobe mass with intraventricular extension, status post craniotomy. 2. History of uterine mass. Details unavailable. DISCUSSION: The patient's medical records will be obtained from Dr. Ambreen Vergara in [place]. Pathology from her tumor resection today is pending. Further recommendations will be based on those results. We will ask the Radiation Oncologist to see her after she has recovered over the next few days. We will follow along with her hospitalization. Thank you for the consult. Job ID: [id number] [facility] HOSPITALLavinia
[2018-12-29] MEDS: Morphine 2 MG/ML SYRINGE SLOW IVP PRN ×2 (04:35→16:50)
[2018-12-29] MEDS: Sodium Chloride 0.9% 1,000 ML IV SCH ×2 (04:36→17:22)
[2018-12-29 04:43] LABS: Anion Gap 11 mmol/L (10-20); BUN (Urea Nitrogen) 14 mg/dL (9.8-20.1); Calc. Creatinine Clearance 75 mL/min (70-130); Calcium 8.8 mg/dL (7.8-10.44); Carbon Dioxide 22 mmol/L (22-29); Chloride 104 mmol/L (98-107); Estimated GFR-MDRD Greater than 90; Glucose 120 mg/dL (70-105); Potassium 3.5 mmol/L (3.5-5.1); Sodium 133 mmol/L (136-145)
--- NOTE | 2018-12-29 07:15 | PRG ---
DATE OF SERVICE: 12/29/2018 Ms. Spear is 1 day out from craniotomy for tumor resection. She is resting quietly in her ICU room when I entered this morning. When she wakes up, she recognizes me. She follows commands well and she has had some brief conversation. There are no fevers recorded. Her blood pressures have been a little bit on the high side in the 150s. The dressing is coming off, but it can remain off since it comes off completely. I do not find any lateralizing motor or sensory deficit. She is a little bit slow to speak, but when she is prompted to do so, she will have some conversation. Ms. Spear looks metabolically stable for discharge from the ICU and can be transferred to floor care. She is going to need some physical therapy and perhaps even inpatient rehabilitation after this hospitalization. Once we have the pathology results, we will know the type and duration of chemoradiotherapy to recommend. Job ID: [id number]
[2018-12-29] MEDS: Lisinopril 10 MG TAB PO SCH ×2 (09:31→20:29)
[2018-12-29] MEDS: Pantoprazole 40 MG VIAL IVP SCH ×2 (09:31→20:30)
[2018-12-29] MEDS: Multivit, Therapeutic 1 TAB PO SCH (09:31)
[2018-12-29] MEDS: Folic Acid 1 MG TAB PO SCH (09:31)
[2018-12-29] MEDS: Thiamine 100 MG TAB PO SCH (09:32)
[2018-12-29] MEDS: Cyanocobalamin (Vitamin B-12) 1,000 MCG TAB PO SCH (09:55)
[2018-12-29] MEDS: Morphine 4 MG/ML VIAL SLOW IVP PRN ×2 (11:51→19:22)
[2018-12-29] MEDS: cloNIDine 0.1 MG TAB PO PRN ×2 (14:56→22:22)
[2018-12-29] MEDS: hydrALAZINE 20 MG/ML VIAL SLOW IVP PRN (19:17)
[2018-12-29] MEDS: Labetalol HCl 100 MG/20 ML VIAL SLOW IVP PRN (20:30)
[2018-12-29] MEDS: Acetaminophen/Codeine 30-300mg Tablet PO PRN (22:01)
--- NOTE | 2018-12-29 22:11 | PDOC.HOSPP ---
- Subjective Encounter Date: 12/29/18 Encounter Time: 08:00 Subjective: Patient seen and examined for brain mass. No new complaints. No overnight events - Objective Vital Signs & Weight: Vital Signs (12 hours) Temp Pulse Pulse BP BP BP Pulse Ox 12/29/18 20:30 157/101 H 12/29/18 20:29 157/101 H 12/29/18 20:00 98 12/29/18 19:17 198/110 H 12/29/18 19:00 97.5 F L 12/29/18 16:00 97.2 F L 12/29/18 14:56 190/101 H 12/29/18 12:00 97.1 F L 12/29/18 11:36 85 89 184/93 H 178/87 H 12/29/18 11:25 106 H 91 178/91 H 182/90 H Pulse Ox 12/29/18 20:30 12/29/18 20:29 12/29/18 20:00 12/29/18 19:17 12/29/18 19:00 12/29/18 16:00 12/29/18 14:56 12/29/18 12:00 12/29/18 11:36 97 12/29/18 11:25 Weight Admit Weight 110 lb 7.225 oz Weight 110 lb 7.225 oz Most Recent Monitor Data Heart Rate from ECG 65 NIBP 120/80 NIBP BP-Mean 93 Respiration from ECG 9 SpO2 100 I&O: 12/28/18 12/29/18 12/30/18 06:59 06:59 06:59 Intake Total 424 1283 650 Output Total 865 975 Balance 424 418 -325 Result Diagrams: 12/27/18 08:39 12/29/18 03:40 Additional Labs: Accuchecks 12/29/18 12/29/18 12/29/18 20:40 18:34 12:05 POC Glucose 93 75 97 12/29/18 04:03 POC Glucose 122 H EKG Reviewed by me: Yes (Tele ) Hospitalist ROS - Review of Systems ROS unobtainable: due to mental status - Medication Medications: Active Medications Generic Name Dose Route Start Last Admin Trade Name Freq PRN Reason Stop Dose Admin Acetaminophen 650 mg 12/26/18 10:26 12/26/18 20:50 Tylenol PO 650 mg Q4H PRN Administration Headache/Fever/Mild Pain (1-3) Acetaminophen/Codeine Phosphate 1 tab 12/27/18 08:05 12/27/18 13:09 Tylenol #3 PO 1 tab Q4H PRN Administration Mild Pain (1-3) Acetaminophen/Codeine Phosphate 2 tab 12/27/18 08:06 12/29/18 22:01 Tylenol #3 PO 2 tab Q4H PRN Administration Moderate Pain (4-6) Clonidine 0.1 mg 12/27/18 11:36 12/29/18 14:56 Catapres PO 0.1 mg Q4H PRN Administration SBP Greater Than 180 Cyanocobalamin 1,000 mcg 12/28/18 09:00 12/29/18 09:55 Vitamin B-12 PO 1,000 mcg DAILY LALITHA Administration Dexamethasone 4 mg 12/26/18 12:00 12/29/18 17:23 Decadron SLOW IVP 4 mg Q6HR LALITHA Administration Folic Acid 1 mg 12/27/18 09:00 12/29/18 09:31 Folvite PO 1 mg DAILY LALITHA Administration Hydralazine HCl 10 mg 12/28/18 13:05 12/29/18 19:17 Apresoline SLOW IVP 10 mg Q4H PRN Administration Sbp Greater Than 140 Sodium Chloride 1,000 mls @ 70 mls/hr 12/27/18 16:30 12/29/18 17:22 Normal Saline 0.9% IV 1,000 mls .[id number] LALITHA Administration Labetalol HCl 10 mg 12/28/18 13:05 12/29/18 20:30 Normodyne SLOW IVP 10 mg Q4H PRN Administration Systolic BP > 140 Lisinopril 10 mg 12/27/18 21:00 12/29/18 20:29 Zestril PO 10 mg BID LALITHA Administration Melatonin 3 mg 12/27/18 22:21 12/27/18 22:33 Melatonin PO 3 mg HS PRN Administration Insomnia Morphine Sulfate 2 mg 12/28/18 13:02 12/29/18 16:50 Morphine SLOW IVP 2 mg Q1H PRN Administration Moderate breakthrough pain Morphine Sulfate 4 mg 12/28/18 13:02 12/29/18 19:22 Morphine SLOW IVP 4 mg Q1H PRN Administration Severe Breakthrough Pain Multivitamins 1 tab 12/27/18 09:00 12/29/18 09:31 Theragran PO 1 tab DAILY LALITHA Administration Ondansetron HCl 4 mg 12/27/18 08:55 12/28/18 16:37 Zofran IVP 4 mg Q4H PRN Administration Nausea/Vomiting Pantoprazole Sodium 40 mg 12/26/18 21:00 12/29/18 20:30 Protonix IVP 40 mg Q12HR LALITHA Administration Sodium Chloride 10 ml 12/27/18 09:00 12/29/18 20:31 Flush - Normal Saline IVF 10 ml Q12HR LALITHA Administration Sodium Chloride 10 ml 12/27/18 00:31 12/28/18 01:17 Flush - Normal Saline IVF 10 ml PRN PRN Administration Saline Flush Thiamine HCl 100 mg 12/27/18 09:00 12/29/18 09:32 Thiamine PO 100 mg DAILY LALITHA Administration - Exam General Appearance: NAD Heart: RRR, no rubs Respiratory: CTAB, no ronchi Gastrointestinal: soft, non-tender, normal bowel sounds Extremities: no edema Hosp A/P - Plan DVT proph w/SCDs, GI proph IMPRESSION: 1. New diagnosis of right frontal lobe mass with vasogenic edema. s/p Craniotomy 2. History of uterine cancer. 3. Hyponatremia and hypomagnesemia. replaced 4. Encephalopathy secondary to #1. 5. History of alcoholism in the past. 6. Small pericardial effusion on the CT. Echo negative 7. Hypertension with hypertensive urgency. 8. Medication noncompliance. 9. Chronic kidney disease, stage 2. PLAN: Cont IV steroids with PPI Await biopsy Cont supportive care Cont IVF AM labs Cont other meds as above
[2018-12-30] MEDS: Morphine 4 MG/ML VIAL SLOW IVP PRN (03:40)
[2018-12-30 05:04] LABS: Hemoglobin 10.6 g/dL (12.0-16.0); Platelet Count 177 thou/uL (130-400)
[2018-12-30] MEDS: Dexamethasone 4 mg/ml Vial SLOW IVP SCH ×3 (05:13→18:35)
[2018-12-30 05:23] LABS: Anion Gap 11 mmol/L (10-20); BUN (Urea Nitrogen) 11 mg/dL (9.8-20.1); Calc. Creatinine Clearance 89 mL/min (70-130); Calcium 8.8 mg/dL (7.8-10.44); Carbon Dioxide 23 mmol/L (22-29); Chloride 99 mmol/L (98-107); Estimated GFR-MDRD Greater than 90; Glucose 116 mg/dL (70-105); Potassium 3.5 mmol/L (3.5-5.1); Sodium 129 mmol/L (136-145)
[2018-12-30] MEDS: hydrALAZINE 20 MG/ML VIAL SLOW IVP PRN ×2 (07:49→18:35)
--- NOTE | 2018-12-30 07:55 | PRG ---
DATE OF SERVICE: 12/30/2018 I saw Ms. Spear in her ICU room this morning. She still has a same flat affect of frontal lobe dysfunction that she had when she came in, which is not surprising given the location of her tumor in her surgery. Her vitals have all been stable. Her neurological examination is unchanging. Ms. Spear is stable for transfer to general floor bed perhaps in the stroke unit or in the postoperative unit upstairs. Pathology is anticipated back later this week and treatment arrangements can be made thereafter. I think she is going to need a significant amount of care at home and perhaps a short stay rehab before she gets there. I like to get her in with Oncology before she leaves the hospital, so we will place a consult to both Medical and Radiation Oncology, so that appointments can be made for her adjuvant therapies. Job ID: [id number]
[2018-12-30] MEDS: Morphine 2 MG/ML SYRINGE SLOW IVP PRN ×2 (08:04→10:12)
[2018-12-30] MEDS: Pantoprazole 40 MG VIAL IVP SCH ×2 (08:46→21:32)
[2018-12-30] MEDS: Multivit, Therapeutic 1 TAB PO SCH (08:48)
[2018-12-30] MEDS: Folic Acid 1 MG TAB PO SCH (08:48)
[2018-12-30] MEDS: Lisinopril 10 MG TAB PO SCH (08:48)
[2018-12-30] MEDS: Cyanocobalamin (Vitamin B-12) 1,000 MCG TAB PO SCH (08:56)
[2018-12-30] MEDS: Thiamine 100 MG TAB PO SCH (08:56)
[2018-12-30] MEDS: Sodium Chloride 0.9% 1,000 ML IV SCH ×2 (09:44→11:30)
[2018-12-30] MEDS: Ondansetron PF 4 MG/2 ML Vial IVP PRN ×2 (10:13→21:49)
[2018-12-30] MEDS: Labetalol HCl 100 MG/20 ML VIAL SLOW IVP PRN ×2 (11:28→15:36)
[2018-12-30] MEDS: cloNIDine 0.1 MG TAB PO PRN (14:06)
[2018-12-30] MEDS: diphenhydrAMINE 50 MG CAP PO PRN ×2 (14:09→21:57)
[2018-12-30] MEDS: Acetaminophen 1,000 MG in Premix Bag 1 BAG IVPB SCH (14:30)
[2018-12-30] MEDS ORDERED: Labetalol HCl 100 MG/20 ML VIAL SLOW IVP PRN (17:48)
--- NOTE | 2018-12-30 17:51 | PDOC.HOSPP ---
- Subjective Encounter Date: 12/30/18 Encounter Time: 15:00 Subjective: Patient seen and examined for brain mass. Somnolent. No new complaints. No overnight events - Objective Vital Signs & Weight: Vital Signs (12 hours) Temp Pulse Pulse Pulse Resp BP BP 12/30/18 16:00 97.7 F 82 16 12/30/18 15:36 82 178/94 H 12/30/18 14:06 175/84 H 12/30/18 11:28 89 190/96 H 12/30/18 11:25 98.4 F 89 8 L 12/30/18 09:08 89 101 H 172/95 H 12/30/18 08:48 163/93 H 12/30/18 08:00 96.7 F L 12/30/18 07:49 163/93 H BP BP Pulse Ox Pulse Ox Pulse Ox 12/30/18 16:00 178/94 H 98 12/30/18 15:36 12/30/18 14:06 12/30/18 11:28 12/30/18 11:25 190/96 H 97 12/30/18 09:08 130/72 95 97 12/30/18 08:48 12/30/18 08:00 98 12/30/18 07:49 Weight Admit Weight 110 lb 7.225 oz Weight 112 lb 6.972 oz Most Recent Monitor Data Heart Rate from ECG 75 NIBP 130/72 NIBP BP-Mean 91 Respiration from ECG 8 SpO2 98 I&O: 12/29/18 12/30/18 12/31/18 06:59 06:59 06:59 Intake Total 1283 1524 120 Output Total 865 1400 90 Balance 418 124 30 Result Diagrams: 12/30/18 04:30 12/30/18 04:30 Additional Labs: Accuchecks 12/30/18 12/29/18 12/29/18 17:02 20:40 18:34 POC Glucose 120 H 93 75 EKG Reviewed by me: Yes (Tele SR) Hospitalist ROS - Review of Systems ROS unobtainable: due to mental status - Medication Medications: Active Medications Generic Name Dose Route Start Last Admin Trade Name Freq PRN Reason Stop Dose Admin Acetaminophen 650 mg 12/26/18 10:26 12/26/18 20:50 Tylenol PO 650 mg Q4H PRN Administration Headache/Fever/Mild Pain (1-3) Acetaminophen/Codeine Phosphate 1 tab 12/27/18 08:05 12/27/18 13:09 Tylenol #3 PO 1 tab Q4H PRN Administration Mild Pain (1-3) Acetaminophen/Codeine Phosphate 2 tab 12/27/18 08:06 12/29/18 22:01 Tylenol #3 PO 2 tab Q4H PRN Administration Moderate Pain (4-6) Clonidine 0.1 mg 12/27/18 11:36 12/30/18 14:06 Catapres PO 0.1 mg Q4H PRN Administration SBP Greater Than 180 Cyanocobalamin 1,000 mcg 12/28/18 09:00 12/30/18 08:56 Vitamin B-12 PO 1,000 mcg DAILY LALITHA Administration Dexamethasone 4 mg 12/26/18 12:00 12/30/18 11:28 Decadron SLOW IVP 4 mg Q6HR LALITHA Administration Diphenhydramine HCl 50 mg 12/28/18 13:02 12/30/18 14:09 Benadryl PO 50 mg Q6H PRN Administration Itching & Insomnia Folic Acid 1 mg 12/27/18 09:00 12/30/18 08:48 Folvite PO 1 mg DAILY LALITHA Administration Hydralazine HCl 10 mg 12/28/18 13:05 12/30/18 07:49 Apresoline SLOW IVP 10 mg Q4H PRN Administration Sbp Greater Than 140 Labetalol HCl 10 mg 12/28/18 13:05 12/30/18 15:36 Normodyne SLOW IVP 10 mg Q4H PRN Administration Systolic BP > 140 Melatonin 3 mg 12/27/18 22:21 12/27/18 22:33 Melatonin PO 3 mg HS PRN Administration Insomnia Morphine Sulfate 2 mg 12/28/18 13:02 12/30/18 10:12 Morphine SLOW IVP 2 mg Q1H PRN Administration Moderate breakthrough pain Morphine Sulfate 4 mg 12/28/18 13:02 12/30/18 03:40 Morphine SLOW IVP 4 mg Q1H PRN Administration Severe Breakthrough Pain Multivitamins 1 tab 12/27/18 09:00 12/30/18 08:48 Theragran PO 1 tab DAILY LALITHA Administration Ondansetron HCl 4 mg 12/27/18 08:55 12/30/18 10:13 Zofran IVP 4 mg Q4H PRN Administration Nausea/Vomiting Pantoprazole Sodium 40 mg 12/26/18 21:00 12/30/18 08:46 Protonix IVP 40 mg Q12HR LALITHA Administration Sodium Chloride 10 ml 12/27/18 09:00 12/30/18 08:49 Flush - Normal Saline IVF 10 ml Q12HR LALITHA Administration Sodium Chloride 10 ml 12/27/18 00:31 12/28/18 01:17 Flush - Normal Saline IVF 10 ml PRN PRN Administration Saline Flush Thiamine HCl 100 mg 12/27/18 09:00 12/30/18 08:56 Thiamine PO 100 mg DAILY LALITHA Administration - Exam General Appearance: NAD Neck: supple, no JVD Heart: RRR, no rubs Respiratory: CTAB, no ronchi Gastrointestinal: soft, non-tender, normal bowel sounds Extremities: no edema Psychiatric: somnolent Hosp A/P - Plan DVT proph w/SCDs IMPRESSION: 1. New diagnosis of right frontal lobe mass with vasogenic edema. s/p Craniotomy 2. History of uterine cancer. 3. Hyponatremia and hypomagnesemia. 4. Encephalopathy secondary to #1. 5. History of alcoholism in the past. 6. Small pericardial effusion on the CT. Echo negative 7. Hypertension with hypertensive urgency. 8. Medication noncompliance. 9. Chronic kidney disease, stage 2. PLAN: Increase Lisinopril to 20 mg BID Change IVF to D5NS due to poor appetite Cont IV steroids Await biopsy Cont other meds as above BMP in AM
[2018-12-30] MEDS ORDERED: Dextrose 5 % And 0.9 % NaCl 1,000 ML IV SCH (18:00)
[2018-12-30] MEDS: Lisinopril 20 MG TAB PO SCH (21:31)
[2018-12-30] MEDS: Acetaminophen 325 MG TAB PO PRN (21:58)
[2018-12-31] MEDS: Dexamethasone 4 mg/ml Vial SLOW IVP SCH ×4 (00:49→17:32)
[2018-12-31] MEDS: Acetaminophen/Codeine 30-300mg Tablet PO PRN ×5 (00:57→20:09)
--- NOTE | 2018-12-31 02:07 | CON ---
DATE OF CONSULTATION: Ms. Spear is a 58-year-old female with a new diagnosis of a glioblastoma. HISTORY OF PRESENT ILLNESS: Ms. Spear is unable to give history. She is noncommunicative to me at this time. Apparently, she presented with a 1-2 week history of mental status changes. She has a previous history of uterine cancer treated about a year ago in [place]. Ultimately a CT scan of the head was done, which suggested a mass. She had a CT of the chest, abdomen, and pelvis, which revealed no evidence of metastatic disease. An MRI of the brain was performed, which showed a 6.2 cm enhancing mass in the right frontal lobe abutting the right lateral ventricle with surrounding vasogenic edema. She was taken to the operating room by Dr. Puente on 12/28/2018 and underwent an aggressive debulking of the tumor. A subtotal resection was performed. There was still felt to be some disease left behind along the lining of the ventricle. Pathology returned as a glioblastoma. She has seen Medical Oncology. I am seeing her today to discuss her options with radiation. Again, she at the present is noncommunicative. She does open her eyes and follows command, but does not speak. Her sons who were at her bedside report that she has been sleeping for the last 4 hours or so. PAST MEDICAL HISTORY: 1. Endometrial cancer as mentioned above. We do not have any records from that. Apparently, she may have had inner cavitary radiation therapy and possibly chemotherapy. 2. Hypertension. 3. History of alcoholism with hospitalization for withdrawal. 4. Status post bilateral breast implants. ALLERGIES: NO KNOWN MEDICAL ALLERGIES. MEDICINES: 1. Cefazolin. 2. Clonidine p.r.n. 3. Dexamethasone. 4. Labetalol p.r.n. 5. Lisinopril. 6. Zofran. 7. Pantoprazole. ALLERGIES: NO KNOWN MEDICAL ALLERGIES. SOCIAL HISTORY: Again, she is unable to provide. She apparently lives in [facility]. Her sons live in [place]. She apparently has a past history of alcoholism. It is not clear to me, if she is drinking at the present. She does not smoke cigarettes. FAMILY HISTORY: Her mother had breast cancer. There is no other family history of malignancy. REVIEW OF SYSTEMS: A 12-point review of systems unable to be obtained. PHYSICAL EXAMINATION: VITAL SIGNS: Height 5 feet 4 inches, weight 112 pounds, blood pressure is 178/94, pulse is 82, respirations 16, temperature is 97.7, O2 saturation is 98%. Again, she does open her eyes, but does not communicate. She does follow some commands, but mostly is sleeping. Karnofsky performance status is 30% at the present. EYES: Pupils equal, round, and reactive to light. Extraocular movements are intact. ENT: Oral cavity and oropharynx are without lesion. Gingiva is intact. NECK: Supple without preauricular, submandibular, cervical, supraclavicular adenopathy. No thyromegaly. LUNGS: Breathing nonlabored. Clear to auscultation. HEART: Regular rate and rhythm without murmur. No lower extremity edema. LYMPHATIC: No axillary or inguinal adenopathy. ABDOMEN: Soft, nontender, nondistended without mass or hepatosplenomegaly. Liver percusses to normal size. NEUROLOGIC: Again, she is very somnolent. She does open her eyes at times and does follow some commands. Motor strength seems intact on the right side in both upper and lower extremities. I am unable to get her to move either her left arm or her left leg. Gait was not tested. LABORATORY DATA: Pathology showed a glioblastoma. CBC revealed a white blood cell count of 6600 with a hemoglobin of 15.2, hematocrit of 45.1. Platelet count was 344,000. Repeat hemoglobin today was 10.6 with hematocrit of 30.8. Platelet count was a 177,000. Chemistry group showed a sodium of 129. IMAGING: Radiologic CT scan of the chest, abdomen, and pelvis as well as well as MRI of the brain and CT scan done postoperatively were all personally reviewed. Again, she had no evidence of distant metastatic disease. In the right side of the pelvis, she has likely a lymphocele related to her lymphadenectomy surgery for her uterine cancer. MRI showed a 6.2 cm mass deep in the right frontal lobe abutting the right lateral ventricle. There was felt to possibly be some interventricular extension of tumor. There was surrounding vasogenic edema. CT of the head on 12/27/2018 showed the right frontal lobe mass as mentioned above. ASSESSMENT: Ms. Spear is a 58-year-old female with a glioblastoma. She is status post craniotomy with a poor functional status at the present time and a markedly decreased Karnofsky performance status score. PLAN: Again, I did try to communicate with Ms. Spear but mostly she is somnolent. I did discuss the case with her sons and discussed the pathology with the sons. I did explain her diagnosis of glioblastoma and the fact that this has a very poor prognosis and is an aggressive brain tumor. I explained that even with treatment, this is likely to recur. The prognosis can be quite short, especially if her neurological status does not improve. Right now, she has such a poor performance status, she is not even able to undergo any type of treatment. Hopefully, she will improve postoperatively and potentially even with some rehab. The recommendation would depend on how much she improves postoperatively. If her performance status remains poor, then her likely best option is going to be hospice. If she does get some improvement in performance status and we can consider whether to treat her with postoperative chemotherapy and radiation, which is the usual standard for this type of brain tumor. However, I did make clear to the family that the disease will likely recur despite our treatment. We did briefly discuss the logistics of radiation as well as the benefits and risk of treatment. We discussed the simulation and daily treatment procedure. We would plan to discuss this in the future in more depth, if she improves neurologically and becomes a candidate for treatment. Time was taken to answer all of her family's questions regarding her situation and possible treatment options. I think they do have an understanding of how poor prognosis this is and our possible treatment options. We will likely see her as an outpatient to see how much improvement she makes and determine whether treatment is even going to be possible. Additionally, she does not have insurance and so will need to go through the [facility] financial screening process for treatment consideration as well. Job ID: [id number]
[2018-12-31] MEDS: diphenhydrAMINE 50 MG/ML VIAL IVP PRN (02:55)
[2018-12-31] MEDS: hydrALAZINE 20 MG/ML VIAL SLOW IVP PRN ×3 (03:56→19:31)
[2018-12-31 05:16] LABS: Hemoglobin 12.2 g/dL (12.0-16.0); Platelet Count 208 thou/uL (130-400)
[2018-12-31 05:37] LABS: Anion Gap 11 mmol/L (10-20); BUN (Urea Nitrogen) 11 mg/dL (9.8-20.1); Calc. Creatinine Clearance 79 mL/min (70-130); Calcium 9.1 mg/dL (7.8-10.44); Carbon Dioxide 26 mmol/L (22-29); Chloride 93 mmol/L (98-107); Estimated GFR-MDRD Greater than 90; Glucose 131 mg/dL (70-105); Potassium 3.6 mmol/L (3.5-5.1); Sodium 126 mmol/L (136-145)
[2018-12-31] MEDS: Folic Acid 1 MG TAB PO SCH (08:55)
[2018-12-31] MEDS: Multivit, Therapeutic 1 TAB PO SCH (08:55)
[2018-12-31] MEDS: Thiamine 100 MG TAB PO SCH (08:56)
[2018-12-31] MEDS: Cyanocobalamin (Vitamin B-12) 1,000 MCG TAB PO SCH (08:56)
[2018-12-31] MEDS: Pantoprazole 40 MG VIAL IVP SCH (08:56)
[2018-12-31] MEDS: Lisinopril 20 MG TAB PO SCH ×2 (08:56→20:10)
--- NOTE | 2018-12-31 09:26 | PRG ---
DATE OF SERVICE: 12/31/2018 I spoke with Jose Dc of Pathology yesterday. He reported this tumor looks like a glioblastoma. It is being sent for an IDH1 and 2 mutations. If methylation status is important to the oncologist, then we can get that test as well, but notification needs to be sent to Pathology to test for that. Other tumor subtyping is lot, not likely clinically useful, defer making treatment decisions just yet outside of a clinical trial. Ms. Spear has a flat affect from a frontal lobe dysfunction secondary to her tumor and surgery. This is unchanged from her preoperative status. Vitals remained stable. Her sodium is dipping a little low. I do not find any new focal deficits other than the global flat affect in abulia. Ms. Spear is going to need adjuvant therapy if she wants to treat this disease aggressively. Her decision making is in question and her significant other and son will have to provide some support to her if she decided how she would like to proceed. From the neurosurgical perspective, we will need an MRI scan at the completion of radiation. Job ID: [id number]
[2018-12-31 13:32] VITALS: BMI 19.3
[2018-12-31] MEDS: Morphine 2 MG/ML SYRINGE SLOW IVP PRN (17:06)
[2018-12-31] MEDS ORDERED: Carvedilol 6.25 MG TAB PO SCH (18:15)
[2018-12-31] MEDS: Ondansetron PF 4 MG/2 ML Vial IVP PRN (18:21)
[2018-12-31] MEDS: cloNIDine 0.1 MG TAB PO PRN (18:25)
--- NOTE | 2018-12-31 19:54 | PDOC.HOSPP ---
- Subjective Encounter Date: 12/31/18 Encounter Time: 12:30 Subjective: Patient seen and examined for new brain mass. Mentation improving. No fever or chills. No new complaints. No overnight events - Objective Vital Signs & Weight: Vital Signs (12 hours) Temp Pulse Pulse Pulse Pulse Resp BP 12/31/18 19:31 98.4 F 97 18 160/89 H 12/31/18 18:25 160/89 H 12/31/18 16:25 81 174/95 H 12/31/18 14:55 96 96 12/31/18 11:20 98.6 F 88 16 12/31/18 09:50 93 94 85 12/31/18 08:56 178/94 H 12/31/18 08:00 BP BP BP BP Pulse Ox 12/31/18 19:31 168/98 H 94 L 12/31/18 18:25 12/31/18 16:25 12/31/18 14:55 159/92 H 159/92 H 12/31/18 11:20 160/95 H 98 12/31/18 09:50 125/97 H 168/97 H 151/87 H 12/31/18 08:56 12/31/18 08:00 97 Weight Admit Weight 110 lb 7.225 oz Weight 112 lb 6.972 oz Most Recent Monitor Data Heart Rate from ECG 75 NIBP 130/72 NIBP BP-Mean 91 Respiration from ECG 8 SpO2 98 I&O: 12/30/18 12/31/18 01/01/19 06:59 06:59 06:59 Intake Total 1524 120 Output Total 1400 90 550 Balance 124 30 -550 Result Diagrams: 12/31/18 04:24 12/31/18 04:24 Additional Labs: Accuchecks 12/31/18 12/31/18 12/31/18 17:51 11:27 06:15 POC Glucose 126 H 142 H 191 H 12/31/18 00:44 POC Glucose 125 H Laboratory Tests 12/31/18 12/31/18 12/31/18 08:44 12:48 12:48 Uric Acid 2.4 L Urine Osmolality 421 Urine Sodium 103 EKG Reviewed by me: Yes (Tele SR) Hospitalist ROS - Review of Systems Respiratory: denies: cough, dry, shortness of breath, hemoptysis, SOB with excertion, pleuritic pain, sputum, wheezing, other Cardiovascular: denies: chest pain, palpitations, orthopnea, paroxysmal noc. dyspnea, edema, light headedness, other Gastrointestinal: denies: nausea, vomiting, abdominal pain, diarrhea, constipation, melena, hematochezia, other - Medication Medications: Active Medications Generic Name Dose Route Start Last Admin Trade Name Freq PRN Reason Stop Dose Admin Acetaminophen 650 mg 12/26/18 10:26 12/30/18 21:58 Tylenol PO 650 mg Q4H PRN Administration Headache/Fever/Mild Pain (1-3) Acetaminophen/Codeine Phosphate 1 tab 12/27/18 08:05 12/31/18 09:59 Tylenol #3 PO 1 tab Q4H PRN Administration Mild Pain (1-3) Acetaminophen/Codeine Phosphate 2 tab 12/27/18 08:06 12/31/18 14:26 Tylenol #3 PO 2 tab Q4H PRN Administration Moderate Pain (4-6) Carvedilol 6.25 mg 12/31/18 18:15 12/31/18 19:31 Coreg PO 12/31/18 20:15 6.25 mg NOW LALITHA Administration Clonidine 0.1 mg 12/31/18 18:11 12/31/18 18:25 Catapres PO 0.1 mg Q4H PRN Administration Sbp Greater Than 140 Cyanocobalamin 1,000 mcg 12/28/18 09:00 12/31/18 08:56 Vitamin B-12 PO 1,000 mcg DAILY LALITHA Administration Dexamethasone 4 mg 12/26/18 12:00 12/31/18 17:32 Decadron SLOW IVP 4 mg Q6HR LALITHA Administration Diphenhydramine HCl 50 mg 12/28/18 13:02 12/31/18 02:55 Benadryl IVP 50 mg Q6H PRN Administration Itching & Insomnia Diphenhydramine HCl 50 mg 12/28/18 13:02 12/30/18 21:57 Benadryl PO 50 mg Q6H PRN Administration Itching & Insomnia Folic Acid 1 mg 12/27/18 09:00 12/31/18 08:55 Folvite PO 1 mg DAILY LALITHA Administration Hydralazine HCl 10 mg 12/28/18 13:05 12/31/18 19:31 Apresoline SLOW IVP 10 mg Q4H PRN Administration Sbp Greater Than 140 Labetalol HCl 10 mg 12/28/18 13:05 12/30/18 15:36 Normodyne SLOW IVP 10 mg Q4H PRN Administration Systolic BP > 140 Lisinopril 20 mg 12/30/18 21:00 12/31/18 08:56 Zestril PO 20 mg BID LALITHA Administration Melatonin 3 mg 12/27/18 22:21 12/27/18 22:33 Melatonin PO 3 mg HS PRN Administration Insomnia Multivitamins 1 tab 12/27/18 09:00 12/31/18 08:55 Theragran PO 1 tab DAILY LALITHA Administration Ondansetron HCl 4 mg 12/27/18 08:55 12/31/18 18:21 Zofran IVP 4 mg Q4H PRN Administration Nausea/Vomiting Sodium Chloride 10 ml 12/27/18 09:00 12/31/18 08:56 Flush - Normal Saline IVF 10 ml Q12HR LALITHA Administration Sodium Chloride 10 ml 12/27/18 00:31 12/28/18 01:17 Flush - Normal Saline IVF 10 ml PRN PRN Administration Saline Flush Thiamine HCl 100 mg 12/27/18 09:00 12/31/18 08:56 Thiamine PO 100 mg DAILY LALITHA Administration - Exam General Appearance: NAD Neck: supple, no JVD Heart: RRR, no gallops Respiratory: CTAB, no wheezes, no rales, no ronchi Gastrointestinal: soft, non-tender, normal bowel sounds Extremities: no edema Hosp A/P - Plan IMPRESSION: 1. New diagnosis of right frontal lobe mass(GBM) with vasogenic edema. s/p Craniotomy, on Steroids 2. History of uterine cancer. 3. 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 Encephalopathy secondary to #1. improving 5. History of alcoholism in the past. 6. Small pericardial effusion on the CT. Echo negative 7. Hypertension with hypertensive urgency. 8. Medication noncompliance. 9. Chronic kidney disease, stage 2. 10.Hypomagnesemia. replaced PLAN: Cont Lisinopril to 20 mg BID Add Coreg Cont IV steroids Add fluid restriction due to SIADH Cont other meds as above BMP in AM Radiation oncology input appreciated Will reconsult Palliative care for goals of care
[2018-12-31] MEDS: Labetalol HCl 100 MG/20 ML VIAL SLOW IVP PRN (20:22)
[2018-12-31] MEDS ORDERED: Labetalol HCl 100 MG/20 ML VIAL SLOW IVP SCH (21:00)
[2018-12-31] MEDS: Melatonin 3 MG TAB PO PRN (21:08)
[2018-12-31] MEDS: diphenhydrAMINE 50 MG CAP PO PRN (21:09)
[2019-01-01] MEDS: Ondansetron PF 4 MG/2 ML Vial IVP PRN (00:30)
[2019-01-01] MEDS: Dexamethasone 4 mg/ml Vial SLOW IVP SCH ×2 (00:55→05:54)
[2019-01-01] MEDS: diphenhydrAMINE 50 MG/ML VIAL IVP PRN (01:00)
[2019-01-01] MEDS: Labetalol HCl 100 MG/20 ML VIAL SLOW IVP PRN ×4 (01:01→20:43)
[2019-01-01] MEDS: Acetaminophen/Codeine 30-300mg Tablet PO PRN ×4 (01:08→19:39)
[2019-01-01 06:42] LABS: Anion Gap 12 mmol/L (10-20); BUN (Urea Nitrogen) 15 mg/dL (9.8-20.1); Calc. Creatinine Clearance 74 mL/min (70-130); Calcium 9.3 mg/dL (7.8-10.44); Carbon Dioxide 27 mmol/L (22-29); Chloride 94 mmol/L (98-107); Estimated GFR-MDRD Greater than 90; Glucose 114 mg/dL (70-105); Potassium 3.7 mmol/L (3.5-5.1); Sodium 129 mmol/L (136-145)
--- NOTE | 2019-01-01 07:13 | PRG ---
DATE OF SERVICE: 01/01/2019 I saw Jazmine Spear who has been transferred from the stroke unit to the oncology unit in the hospital. She is resting comfortably with a knitted hat when I entered the room. She wakes easily and answers questions. She still has quite a flat affect from frontal lobe dysfunction. I do not see any fevers recorded. Blood pressures have been elevated in the 160-170 range. Her neurological examination is unchanged. Ms. Spear will benefit greatly from the therapies we could offer her in the hospital like physical therapy, speech therapy and occupational therapy; however, I do not see any notes that she has had those. We will need to arrange a disposition plan that includes radiation and chemotherapy. If she is going to go home, she will require significant assistance from family members for her activities of daily living currently. Job ID: [id number]
--- NOTE | 2019-01-01 11:16 | ULT ---
ULTRASOUND DOPPLER DUPLEX VENOUS BILATERAL LOWER EXTREMITIES: DATE: 01/01/2019 HISTORY: 58-year-old female with decreased mobility increasing risk for DVT. TECHNIQUE: Grayscale, color-flow, and spectral analysis, of major veins of bilateral lower extremities. FINDINGS: There is demonstration of blood flow with normal compressibility, of the bilateral common femoral, pr ofunda femoral, greater saphenous, femoral, popliteal, and posterior tibial, veins. IMPRESSION: 1. No deep venous thrombosis of bilateral lower extremities. 2. Minimal soft tissue edema.
[2019-01-01] MEDS: Multivit, Therapeutic 1 TAB PO SCH (11:53)
[2019-01-01] MEDS: Folic Acid 1 MG TAB PO SCH (11:53)
[2019-01-01] MEDS: Thiamine 100 MG TAB PO SCH (11:53)
[2019-01-01] MEDS: Carvedilol 6.25 MG TAB PO SCH ×2 (11:53→19:39)
[2019-01-01] MEDS: Lisinopril 20 MG TAB PO SCH ×2 (11:53→20:46)
[2019-01-01] MEDS: Cyanocobalamin (Vitamin B-12) 1,000 MCG TAB PO SCH (11:54)
[2019-01-01] MEDS: Dexamethasone 4 MG TAB PO SCH ×3 (11:54→19:39)
[2019-01-01] MEDS: cloNIDine 0.1 MG TAB PO PRN (14:21)
[2019-01-01] MEDS: hydrALAZINE 20 MG/ML VIAL SLOW IVP PRN (15:29)
[2019-01-01] MEDS ORDERED: Acetaminophen 1,000 MG in Premix Bag 1 BAG IVPB SCH (16:30)
--- NOTE | 2019-01-01 17:02 | PRG ---
DATE OF SERVICE: 01/01/2019 SUBJECTIVE: Visited with Ms. Spear today. She is more alert than she was on Friday. However, she is still very confused. She complains of a "crick in the neck." OBJECTIVE: VITAL SIGNS: Height 5 feet 4 inches, weight 112 pounds. Blood pressure is 143/85, pulse is 72, respirations 16, and temperature is 96.7. GENERAL: She is alert, but not oriented to place or time or situation. She does not know the president. Karnofsky performance status is 30%. HEENT: Eyes; pupils equal, round, and reactive to light. Extraocular movements are intact. Head and ENT, oral cavity and oropharynx are normal without lesion or erythema. Palate elevates symmetrically. Gingiva is intact. NECK: Ecchymosis over the right neck. There is no preauricular, submandibular, cervical, or supraclavicular adenopathy. No thyromegaly. Larynx midline. LUNGS: Breathing nonlabored. Clear to auscultation. HEART: Regular rate and rhythm without murmur. No lower extremity edema. NEUROLOGIC: Cranial nerves 2 through 12 grossly intact. Motor strength is 5/5 in both upper and lower extremities in all muscle groups tested. Gait was not tested. SKIN: Her craniotomy incision is with suma in place. There is no erythema or fluctuance noted. LABORATORY DATA: Hemoglobin today was 12.2 with hematocrit of 35.6, platelet count was 208,000. Chemistry group showed a sodium of 129, glucose was 114. Pathology from the brain tumor was called a grade 4 glioblastoma. RADIOLOGIC: I did review her preoperative MRI with Radiology. She has a very deep tumor on the right side that is invading into the ventricle. She appears to have CSF spread of her disease. She has enhancement in both sides of the ventricle along the lining, which is also nodular. She also has enhancement in the third ventricle. She has a distal area of enhancement in the right temporal horn of the ventricle. This is all consistent with CSF spread of her disease and does match the operative findings that Dr. Puente found with nodularity along the ependymal lining of the ventricle. ASSESSMENT: Ms. Spear is a 58-year-old female with glioblastoma multiforme. This is an aggressive brain tumor, but her brain tumor is even being more aggressive than typical for glioblastoma. She clearly has CSF spread of her disease with nodularity and enhancement throughout much of her ventricles on both sides of her brain and also in the third ventricle. PLAN: I had a discussion today with Ms. Spear and her son. Ms. Spear is clearly confused and certainly not able to give consent at this time. I did, however, explain to her and her son the poor prognosis of this tumor. I also explained how this tumor is behaving more aggressive than even the most malignant brain tumors and that she has a spread through the fluid around the brain. I did explain the prognosis of this tumor and that this tumor likely will recur despite treatment. I explained that her survival is likely to be short and that treatment at best may only provide us a little longevity. However, at the present, her performance status is so poor and with her confusion, she needs quite a bit of supportive care that I am not sure that she is even going to be amenable to treatment. If she continues with her confusion and this poor performance status, her best option is going to be hospice because it would be unlikely that even aggressive treatment will significantly improve things or improve quality of life. Her only option with radiation potentially is whole-brain radiation therapy. This is because of the CSF seeding of the tumor. The third option would be to consider chemotherapy alone with Temodar. All of these options are in accordance with NCCN guidelines. The advantage of Temodar is that she does have CSF spread of her disease and may be the easiest of all treatment to deliver. She has not recently been seen by Medical Oncology. I will communicate this with Medical Oncology so that they can help participate in this decision making. Again, I can see her as an outpatient in the next couple of weeks before we make a final decision if they so desire. The family is going to talk about her prognosis and treatment options this weekend together. Even if we were to consider whole-brain radiation therapy could not be delivered for about 3 weeks to allow adequate healing of her surgery site before we start. I will say that I am not very optimistic that any form of treatment is going to significantly improve her quality of life or survival. I do have some concerns about her complaint of a "crick in the neck." Again with her having CSF spread, it is possible that she could see the cervical spine or other areas of the spine with drop metastasis. If these neck symptoms persist, then we may have to consider doing an MRI of her spine to evaluate for even further dissemination of her disease. 35 minutes were spent with this patient and with the family. Job ID: [id number]
[2019-01-01 18:31] LABS: Bacteria/HPF 4+ HPF (None Seen); Bilirubin Negative (Negative); Blood, Urine Negative (Negative); Clarity Turbid (Clear); Glucose, Urine (Dipstick) Normal (Negative); Leukocyte 500 Leu/uL (Negative); Nitrite Negative (Negative); Protein, Urine (Dipstick) Negative (Neg-Trace); RBC/HPF 0-3 HPF (0-3); Squamous Epithelial None Seen HPF (0-3); Urobilinogen Normal mg/dL (Less than 2)
--- NOTE | 2019-01-01 20:28 | PDOC.HOSPP ---
- Subjective Encounter Date: 01/01/19 Encounter Time: 08:30 Subjective: Patient seen and examined for brain mass. Intermittent confusion. No CP or new focal deficits. No new complaints. No overnight events - Objective Vital Signs & Weight: Vital Signs (12 hours) Temp Pulse Pulse Pulse Resp BP BP 01/01/19 19:47 98.0 F 80 16 01/01/19 14:21 143/85 H 01/01/19 14:18 72 01/01/19 13:28 72 164/96 H 01/01/19 13:25 96.7 F L 72 16 01/01/19 08:45 98.2 F 66 18 01/01/19 08:41 67 62 169/99 H BP BP Pulse Ox 01/01/19 19:47 164/89 H 93 L 01/01/19 14:21 01/01/19 14:18 143/85 H 01/01/19 13:28 01/01/19 13:25 164/96 H 93 L 01/01/19 08:45 170/84 H 96 01/01/19 08:41 170/84 H Weight Admit Weight 110 lb 7.225 oz Weight 112 lb 6.972 oz Most Recent Monitor Data Heart Rate from ECG 75 NIBP 130/72 NIBP BP-Mean 91 Respiration from ECG 8 SpO2 98 I&O: 12/31/18 01/01/19 01/02/19 06:59 06:59 06:59 Intake Total 120 980 Output Total 90 3875 1650 Balance 30 -7981 -6336 Result Diagrams: 12/31/18 04:24 01/01/19 06:03 Hospitalist ROS - Review of Systems Cardiovascular: denies: chest pain, palpitations, orthopnea, paroxysmal noc. dyspnea, edema, light headedness, other Gastrointestinal: denies: nausea, vomiting, abdominal pain, diarrhea, constipation, melena, hematochezia, other - Medication Medications: Active Medications Generic Name Dose Route Start Last Admin Trade Name Freq PRN Reason Stop Dose Admin Acetaminophen 650 mg 12/26/18 10:26 12/30/18 21:58 Tylenol PO 650 mg Q4H PRN Administration Headache/Fever/Mild Pain (1-3) Acetaminophen/Codeine Phosphate 1 tab 12/27/18 08:05 12/31/18 09:59 Tylenol #3 PO 1 tab Q4H PRN Administration Mild Pain (1-3) Acetaminophen/Codeine Phosphate 2 tab 12/27/18 08:06 01/01/19 19:39 Tylenol #3 PO 2 tab Q4H PRN Administration Moderate Pain (4-6) Carvedilol 6.25 mg 01/01/19 08:00 01/01/19 19:39 Coreg PO 6.25 mg BID-WM LALITHA Administration Clonidine 0.1 mg 12/31/18 18:11 01/01/19 14:21 Catapres PO 0.1 mg Q4H PRN Administration Sbp Greater Than 140 Cyanocobalamin 1,000 mcg 12/28/18 09:00 01/01/19 11:54 Vitamin B-12 PO 1,000 mcg DAILY LALITHA Administration Dexamethasone 4 mg 01/01/19 08:00 01/01/19 19:39 Decadron PO 01/03/19 08:01 4 mg TID-WM LALITHA Administration Diphenhydramine HCl 50 mg 12/28/18 13:02 01/01/19 01:00 Benadryl IVP 50 mg Q6H PRN Administration Itching & Insomnia Diphenhydramine HCl 50 mg 12/28/18 13:02 12/31/18 21:09 Benadryl PO 50 mg Q6H PRN Administration Itching & Insomnia Folic Acid 1 mg 12/27/18 09:00 01/01/19 11:53 Folvite PO 1 mg DAILY LALITHA Administration Hydralazine HCl 10 mg 12/28/18 13:05 01/01/19 15:29 Apresoline SLOW IVP 10 mg Q4H PRN Administration Sbp Greater Than 140 Labetalol HCl 10 mg 12/28/18 13:05 01/01/19 13:28 Normodyne SLOW IVP 10 mg Q4H PRN Administration Systolic BP > 140 Lisinopril 20 mg 12/30/18 21:00 01/01/19 11:53 Zestril PO 20 mg BID LALITHA Administration Melatonin 3 mg 12/27/18 22:21 12/31/18 21:08 Melatonin PO 3 mg HS PRN Administration Insomnia Multivitamins 1 tab 12/27/18 09:00 01/01/19 11:53 Theragran PO 1 tab DAILY LALITHA Administration Ondansetron HCl 4 mg 12/27/18 08:55 01/01/19 00:30 Zofran IVP 4 mg Q4H PRN Administration Nausea/Vomiting Pantoprazole Sodium 40 mg 01/01/19 09:00 01/01/19 11:54 Protonix PO 40 mg DAILY LALITHA Administration Sodium Chloride 10 ml 12/27/18 09:00 01/01/19 13:34 Flush - Normal Saline IVF 10 ml Q12HR LALITHA Administration Thiamine HCl 100 mg 12/27/18 09:00 01/01/19 11:53 Thiamine PO 100 mg DAILY LALITHA Administration - Exam General Appearance: NAD Heart: RRR, no gallops Respiratory: CTAB, no wheezes, no rales Gastrointestinal: soft, non-tender, non-distended Extremities: no edema Hosp A/P - Plan DVT proph w/SCDs IMPRESSION: 1. Encephalopathy/New diagnosis of right frontal lobe mass(GBM) with vasogenic edema. s/p Craniotomy 2. History of uterine cancer. 3. 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 improving 4. UTI. 5. History of alcoholism in the past. 6. Small pericardial effusion on the CT. Echo negative 7. Hypertension with hypertensive urgency. 8. Medication noncompliance. 9. Chronic kidney disease, stage 2. 10.Hypomagnesemia. replaced PLAN: Start IV Ceftriaxone for UTI Add urine culture Cont Lisinopril and Coreg Cont steroid taper Cont fluid restriction due to SIADH Cont other meds as above BMP in AM
[2019-01-01] MEDS: cefTRIAXone\\ROCEPHIN 1 GM in Sodium Chloride 0.9% 100 ML IVPB SCH (20:46)
[2019-01-01] MEDS: diphenhydrAMINE 50 MG CAP PO PRN (20:46)
[2019-01-02] MEDS: Melatonin 3 MG TAB PO PRN ×2 (02:56→20:04)
[2019-01-02] MEDS: Acetaminophen/Codeine 30-300mg Tablet PO PRN ×3 (02:56→12:27)
[2019-01-02] MEDS: Labetalol HCl 100 MG/20 ML VIAL SLOW IVP PRN ×2 (04:47→20:05)
[2019-01-02 05:13] LABS: Anion Gap 10 mmol/L (10-20); BUN (Urea Nitrogen) 17 mg/dL (9.8-20.1); Calc. Creatinine Clearance 76 mL/min (70-130); Calcium 9.8 mg/dL (7.8-10.44); Carbon Dioxide 28 mmol/L (22-29); Chloride 94 mmol/L (98-107); Estimated GFR-MDRD Greater than 90; Glucose 131 mg/dL (70-105); Potassium 4.2 mmol/L (3.5-5.1); Sodium 128 mmol/L (136-145)
[2019-01-02] MEDS: hydrALAZINE 20 MG/ML VIAL SLOW IVP PRN ×2 (06:27→12:28)
[2019-01-02] MEDS: Ondansetron PF 4 MG/2 ML Vial IVP PRN ×2 (07:36→16:38)
[2019-01-02] MEDS: Dexamethasone 4 MG TAB PO SCH ×3 (07:54→18:32)
[2019-01-02] MEDS: cloNIDine 0.1 MG TAB PO PRN ×2 (08:34→13:55)
[2019-01-02] MEDS: Multivit, Therapeutic 1 TAB PO SCH (08:35)
[2019-01-02] MEDS: Folic Acid 1 MG TAB PO SCH (08:35)
[2019-01-02] MEDS: Carvedilol 6.25 MG TAB PO SCH ×2 (08:35→18:32)
[2019-01-02] MEDS: Lisinopril 20 MG TAB PO SCH ×2 (08:35→20:05)
[2019-01-02] MEDS: Thiamine 100 MG TAB PO SCH (08:35)
[2019-01-02] MEDS: Cyanocobalamin (Vitamin B-12) 1,000 MCG TAB PO SCH (08:35)
--- NOTE | 2019-01-02 14:45 | PRG ---
DATE OF SERVICE: 01/02/2019 SUBJECTIVE: The patient complains about headache. She rates the headache at 10 on a scale from 1 to 10, but after she explained that 10 is the headache which is the worst and she would probably cry from this. She changes her rating to maybe 5. OBJECTIVE: VITAL SIGNS: Blood pressure is 145/87, temperature is 97.8, pulse is 92, respiratory rate is 18, and O2 saturation 95% on room air. She is status post craniotomy on the right side. Mio in place. Wound is healing properly. HEENT: Pupils are responding to light. Sclerae are nonicteric. Conjunctivae are pinkish. Oral mucosa is moist. NECK: Supple. LUNGS: Clear. HEART: S1, S2 normal. ABDOMEN: Soft, nontender, nondistended. EXTREMITIES: No clubbing, cyanosis, or edema. NEUROLOGIC: She recognized the place. She knows that she is in the hospital. She is not able to recall the name of President. She follows my commands. She moves all 4 extremities. LABORATORY DATA: Labs showed hemoglobin of 12.2, hematocrit 35.6, platelet count 208. Urinalysis showed turbid urine, 500 of leukocyte esterases, 7 to 10 wbc's, 4+ bacteria. IMPRESSION: 1. Brain tumor, based on pathology report is glioblastoma stage IV, status post BrainLAB stereotactic assisted right frontal craniotomy, resection of right frontal tumor and operating microscope. 2. Hyponatremia most likely related to syndrome of inappropriate antidiuretic hormone. Continue on fluid restrictions. 3. Urinary tract infection, on Rocephin with negative urine culture so far. 4. History of uterine cancer. 5. Hypertensive urgency. We will increase the dose of Coreg to 12.5 twice a day and continue the rest of the regimen which is lisinopril 20 mg twice a day. 6. Chronic kidney disease stage 2. 7. Hypomagnesemia, replaced. 8. History of alcoholism in the past. PLAN: Plan is to continue her Rocephin. Increase the dose of Coreg. Continue steroid treatment. Continue fluid restriction and labs in the morning. Job ID: [id number]
--- NOTE | 2019-01-02 15:53 | EKG ---
Test Reason : HYPERTENSION Blood Pressure : / mmHG Vent. Rate : 102 BPM Atrial Rate : 102 BPM P-R Int : 128 ms QRS Dur : 070 ms QT Int : 354 ms P-R-T Axes : 060 027 029 degrees QTc Int : 461 ms Sinus tachycardia Possible Left atrial enlargement Borderline ECG No change from 12/22/2010 Confirmed by SHANTHI PUGH ([id number]), news video editor LEÓN CROOK ([id number]) on 01/02/2019 3:53:31 PM Referred By: Confirmed By:SHANTHI PUGH
[2019-01-02] MEDS: Acetaminophen 1,000 MG in Premix Bag 1 BAG IVPB SCH (16:01)
[2019-01-02] MEDS ORDERED: traMADol HCl 50 MG TAB PO PRN (18:29)
[2019-01-02] MEDS: traMADol HCl 50 MG TAB PO PRN (18:37)
[2019-01-02] MEDS: diphenhydrAMINE 50 MG CAP PO PRN (20:04)
[2019-01-02] MEDS: cefTRIAXone\\ROCEPHIN 1 GM in Sodium Chloride 0.9% 100 ML IVPB SCH (20:05)
[2019-01-02] MEDS ORDERED: Promethazine HCl 25 MG/ML VIAL IM/IV SCH (20:15)
[2019-01-03] MEDS: hydrALAZINE 20 MG/ML VIAL SLOW IVP PRN ×2 (00:13→20:00)
[2019-01-03] MEDS: Acetaminophen 1,000 MG in Premix Bag 1 BAG IVPB SCH ×3 (00:13→17:04)
[2019-01-03] MEDS: Labetalol HCl 100 MG/20 ML VIAL SLOW IVP PRN (03:46)
[2019-01-03] MEDS: traMADol HCl 50 MG TAB PO PRN ×2 (03:47→16:06)
[2019-01-03] MEDS: cloNIDine 0.1 MG TAB PO PRN ×2 (03:47→15:52)
[2019-01-03 04:06] LABS: Anion Gap 15 mmol/L (10-20); BUN (Urea Nitrogen) 16 mg/dL (9.8-20.1); Calc. Creatinine Clearance 79 mL/min (70-130); Calcium 9.4 mg/dL (7.8-10.44); Carbon Dioxide 26 mmol/L (22-29); Chloride 93 mmol/L (98-107); Estimated GFR-MDRD Greater than 90; Glucose 138 mg/dL (70-105); Potassium 4.2 mmol/L (3.5-5.1); Sodium 130 mmol/L (136-145)
[2019-01-03] MEDS: Dexamethasone 4 MG TAB PO SCH (07:23)
[2019-01-03] MEDS: Carvedilol 6.25 MG TAB PO SCH ×2 (07:23→16:35)
[2019-01-03] MEDS: Morphine 2 MG/ML SYRINGE SLOW IVP PRN ×2 (07:24→16:26)
[2019-01-03] MEDS: Thiamine 100 MG TAB PO SCH (09:41)
[2019-01-03] MEDS: Cyanocobalamin (Vitamin B-12) 1,000 MCG TAB PO SCH (09:41)
[2019-01-03] MEDS: Lisinopril 20 MG TAB PO SCH ×2 (09:41→20:07)
[2019-01-03] MEDS: Multivit, Therapeutic 1 TAB PO SCH (09:41)
[2019-01-03] MEDS: Folic Acid 1 MG TAB PO SCH (09:41)
[2019-01-03] MEDS: Pantoprazole 40 MG GRANULES PACKET PO SCH (09:42)
--- NOTE | 2019-01-03 09:44 | CT ---
NONCONTRAST HEAD CT: COMPARISON: 12/27/2018. HISTORY: Right frontal lobe craniotomy for surgical resection of a mass. FINDINGS: There is intraparenchymal hemorrhage at the operative site, compatible with recent resection. There still appears to be a mass in the right frontal/periventricular region with extension into the right ventricular system, including the anterior septum pellucidum. This mass as well as postsurgical cavi ty continue to measure 4.3 x 4.3 cm. There is expected pneumocephalus of the ventricular system as w ell as in the left and right extraaxial space. There is some malacic change in the right frontal lob e, likely along the pathway of surgical resection. The left cerebrum does not demonstrate any obviou s loss of gonzalez-white matter differentiation. There is stable ventricular dilatation. There are expe cted postoperative changes of the calvarium and overlying scalp. There appears to be 8 mm of right t o left subfalcine herniation which may represent postsurgical change. IMPRESSION: 1. Expected postoperative changes of partial resection of a known intracranial mass. There is persi stent dilatation of the ventricular system. There is expected pneumocephalus. 2. There is evidence of right to left subfalcine herniation of approximately 8 mm which may be due t o postoperative edema. Results of the exam conveyed via [employer]_to Drew Caldwell 01/03/2019 at 8:40 a.m. CODE CR POS: OFF
[2019-01-03] MEDS ORDERED: Dexamethasone 10 MG in Sodium Chloride 0.9% 50 ML IVPB SCH (10:00)
--- NOTE | 2019-01-03 14:03 | PRG ---
DATE OF SERVICE: 01/03/2019 SUBJECTIVE: The patient is seen and examined at the bedside. There was no any overnight unexpected events. OBJECTIVE: VITAL SIGNS: Blood pressure is 143/88, pulse is 60, temperature is 98.2, respirations 18, and O2 saturation is 93% on room air. HEENT: She is post craniotomy status. Her right-sided incision is stapled and is healing properly on her head. Her sclerae nonicteric. Conjunctivae, pinkish. LUNGS: Clear. HEART: S1 and S2, normal. ABDOMEN: Soft, nontender, nondistended. EXTREMITIES: No clubbing, cyanosis, or edema. NEUROLOGIC: She follows my commands. She moves her all 4 extremities. There is no any motor deficit as far as I can see. LABORATORY DATA: Labs showed sodium of 130, potassium 4.2, chloride 93, CO2 of 26, BUN 16, creatinine 0.61, glucose 138, and calcium is 9.4. Urine culture mixed culture isolation of possible pathogens in progress. CT of the brain showed; 1. Expected postoperative changes of partial resection of unknown intracranial mass, persistent dilatation of the ventricular system and expected pneumocephalus. 2. There was evidence of [id number]-[id number] subfalcine herniation of approximately 8 mm, which may be due to postoperative edema. IMPRESSION: 1. Brain tumor per pathology report, glioblastoma, stage IV, status post right frontal craniotomy and resection of the right frontal tumor. 2. Hyponatremia secondary to syndrome of inappropriate antidiuretic hormone, improved. Continue fluid restriction. 3. Urinary tract infection, on Rocephin. Urine cultures still pending. 4. History of uterine cancer. 5. Hypertensive urgency. Blood pressure somewhat better with double dose on Coreg. We will continue lisinopril. 6. Chronic kidney disease, stage 2, improved. 7. Hypomagnesemia. 8. History of alcoholism in the past. PLAN: We are still awaiting for final report on urine. In the meantime, we will continue Rocephin. Continue double dose of Coreg and lisinopril for blood pressure control. The steroid dose was adjusted by neurosurgical team and she is receiving 4 mg IV piggyback three times a day. We encouraged her to increase her oral intake since she is not eating much. Job ID: [id number]
--- NOTE | 2019-01-03 14:22 | PRG ---
DATE OF SERVICE: 01/03/2019 Ms. Spear is in the oncology unit. She had a repeat CT examination performed today due to concerns from nursing that she was less responsive and interactive. The CT scan is notable for a postoperative change with associated midline shift, which in my view is not changed appreciably. When I met with her this morning, she awakens easily. She follows commands easily. She is not very verbal. I have no new concerns at this point in time. Job ID: [id number]
[2019-01-03] MEDS: Dexamethasone 4 MG in Sodium Chloride 0.9% 50 ML IVPB SCH ×2 (14:39→20:03)
[2019-01-03] MEDS ORDERED: Dexamethasone 4 MG TAB PO SCH (17:00)
[2019-01-03] MEDS: Ondansetron PF 4 MG/2 ML Vial IVP PRN (20:38)
[2019-01-03] MEDS: cefTRIAXone\\ROCEPHIN 1 GM in Sodium Chloride 0.9% 100 ML IVPB SCH (20:46)
[2019-01-03] MEDS: diphenhydrAMINE 50 MG/ML VIAL IVP PRN (21:33)
[2019-01-03] MEDS ORDERED: Acetaminophen/Codeine 30-300mg Tablet PO PRN ×2 (22:00)
[2019-01-03] MEDS ORDERED: Acetaminophen 650 MG Suppository PR PRN (22:00)
[2019-01-03] MEDS ORDERED: Acetaminophen 325 MG TAB PO PRN (22:00)
[2019-01-04] MEDS: cloNIDine 0.1 MG TAB PO PRN ×2 (03:02→13:20)
[2019-01-04] MEDS: diphenhydrAMINE 50 MG/ML VIAL IVP PRN ×2 (04:13→21:32)
[2019-01-04] MEDS: hydrALAZINE 20 MG/ML VIAL SLOW IVP PRN ×3 (05:23→19:59)
--- NOTE | 2019-01-04 07:53 | PRG ---
DATE OF SERVICE: 01/04/2019 I saw Ms. Spear in our hospital room this morning. I noticed a CT scan of the brain over the weekend. This was done for some change of mental status. No UTI was found with E coli prominent. The vitals are stable. Ms. Spear still has a flat affect. She answers questions just back to sleep. I reviewed the CT scan. There is a hollowing out of the tumor, although there is definitely tumor present anterior and posterior to the resection cavity from the shell of the tumor as well. This is quite a large area, and a repeat surgery to remove more, in my view, would render her even less communicative and able to care for herself. I am recommending radiation and chemotherapy to see if we can reduce the size of the remnant. Hopefully, that can start sometime soon. She is going to need extensive help either in a [facility] re[facility] or home, where the resources she has available to her for that. Job ID: [id number]
[2019-01-04] MEDS: Megestrol Acetate 800 MG/20 ML UDCUP PO SCH (08:44)
[2019-01-04] MEDS: Multivit, Therapeutic 1 TAB PO SCH (08:44)
[2019-01-04] MEDS: Pantoprazole 40 MG GRANULES PACKET PO SCH (08:44)
[2019-01-04] MEDS: Folic Acid 1 MG TAB PO SCH (08:44)
[2019-01-04] MEDS: Carvedilol 6.25 MG TAB PO SCH ×2 (08:44→16:33)
[2019-01-04] MEDS: Cyanocobalamin (Vitamin B-12) 1,000 MCG TAB PO SCH (08:46)
[2019-01-04] MEDS: Thiamine 100 MG TAB PO SCH (08:46)
[2019-01-04] MEDS: Lisinopril 20 MG TAB PO SCH ×2 (08:46→20:52)
[2019-01-04] MEDS: Dexamethasone 4 mg/ml Vial SLOW IVP SCH ×3 (08:55→20:51)
[2019-01-04] MEDS: Morphine 2 MG/ML SYRINGE SLOW IVP PRN ×3 (13:33→20:00)
--- NOTE | 2019-01-04 17:47 | PRG ---
DATE OF SERVICE: 01/04/2019 SUBJECTIVE: The patient is seen and examined at the bedside. Apparently, she was somewhat more lethargic and a neurosurgical team was called. OBJECTIVE: VITAL SIGNS: Blood pressure is 121/77, pulse is 77, temperature is 98.3, respirations 16, O2 saturation is 98% on room air. GENERAL: Her son is present in the room during my visit. She seems to be at her baseline at least of what I saw in the last couple of days. She complains about headache on and off. She was just medicated with 1 mg of morphine by the nurse. HEENT: Her craniotomy incision is healing properly. Her pupils respond to light properly. LUNGS: Clear. HEART: S1, S2 normal. ABDOMEN: Soft, nontender, nondistended. EXTREMITIES: No clubbing, cyanosis, or edema. She moves all 4 extremities. NEURO: There are no motor or sensory deficits. LABORATORY DATA: None. Microbiology, urine culture is growing E. coli, which is more than 100,000 colonies, almost pansensitive except for penicillins. IMPRESSION: 1. Brain tumor, glioblastoma, stage IV, status post right frontal craniotomy and resection of the right frontal tumor at least partially. 2. Hyponatremia, secondary to SIADH, we will continue fluid restrictions. 3. Urinary tract infection, on Rocephin. E. coli is growing, which is pansensitive except for ampicillin. 4. History of uterine cancer. 5. Hypertensive urgency. Blood pressure is doing significantly better. 6. Chronic kidney disease stage 2, improved. 7. Hypomagnesemia, improved. 8. History of alcoholism in the past. PLAN: Neurosurgery recommends chemotherapy and radiation if it is possible before they do additional surgical intervention. On the medical side, her blood pressure is better controlled. She is on steroids. We will continue the same dose and we started her on Megace yesterday for her lack of appetite. Her appetite is poor. We will try to encourage her to get up and do physical therapy and she will continue on her current regimen. Job ID: [id number]
[2019-01-04] MEDS: cefTRIAXone\\ROCEPHIN 1 GM in Sodium Chloride 0.9% 100 ML IVPB SCH (20:51)
[2019-01-05] MEDS: Labetalol HCl 100 MG/20 ML VIAL SLOW IVP PRN (00:03)
[2019-01-05] MEDS: hydrALAZINE 20 MG/ML VIAL SLOW IVP PRN ×2 (01:45→08:45)
[2019-01-05] MEDS: diphenhydrAMINE 50 MG/ML VIAL IVP PRN (02:32)
[2019-01-05] MEDS: cloNIDine 0.1 MG TAB PO PRN (03:39)
--- NOTE | 2019-01-05 06:45 | PRG ---
DATE OF SERVICE: 01/05/2019 I saw Jazmine Spear in the oncology unit this morning. Over the past couple days, she is a little less communicative. She still opens her eyes, says a few words, follows commands and interacts a bit, but then drifts off to sleep. This is a result of her frontal lobe dysfunction from tumor and from having had her operation. I am going to bump her steroids back up and make sure she is on Protonix and I will trust that our colleagues in the medical service will manage her hypertension, which is a bit out of control. I would aim for a normal blood pressure anywhere between 90 and 140 or even 130 going forward. Job ID: [id number]
[2019-01-05] MEDS: Lisinopril 20 MG TAB PO SCH ×2 (08:40→22:55)
[2019-01-05] MEDS: Cyanocobalamin (Vitamin B-12) 1,000 MCG TAB PO SCH (08:40)
[2019-01-05] MEDS: Carvedilol 6.25 MG TAB PO SCH ×2 (08:40→16:55)
[2019-01-05] MEDS: Folic Acid 1 MG TAB PO SCH (08:40)
[2019-01-05] MEDS: Thiamine 100 MG TAB PO SCH (08:41)
[2019-01-05] MEDS: Dexamethasone 4 MG TAB PO SCH ×4 (08:41→23:36)
[2019-01-05] MEDS: Multivit, Therapeutic 1 TAB PO SCH (08:41)
[2019-01-05] MEDS: Pantoprazole 40 MG GRANULES PACKET PO SCH ×2 (08:42→22:58)
[2019-01-05] MEDS: Megestrol Acetate 800 MG/20 ML UDCUP PO SCH (09:16)
[2019-01-05] MEDS ORDERED: NIFEdipine XL 30 MG TAB PO SCH (12:15)
[2019-01-05 12:52] LABS: Hemoglobin 15.4 g/dL (12.0-16.0); Mean Corpuscular HGB CONC 34.7 g/dL (32.0-36.0); Mean Corpuscular Volume 95.1 fL (78.0-98.0); Mean Platelet Volume 6.4 fL (7.4-10.4); Platelet Count 340 thou/uL (130-400); RBC Distribution Width 12.9 % (11.5-14.5); Red Blood Cell (RBC) Count 4.68 mill/uL (4.20-5.40); White Blood Cell (WBC) Count 23.6 thou/uL (4.8-10.8)
[2019-01-05 13:10] LABS: Anion Gap 14 mmol/L (10-20); BUN (Urea Nitrogen) 18 mg/dL (9.8-20.1); Calc. Creatinine Clearance 73 mL/min (70-130); Carbon Dioxide 26 mmol/L (22-29); Chloride 83 mmol/L (98-107); Estimated GFR-MDRD Greater than 90; Glucose 113 mg/dL (70-105); Potassium 4.6 mmol/L (3.5-5.1)
[2019-01-05 13:16] LABS: Band 5 % (5-11); Lymphocytes 1 % (21-51); MDiff Complete? YES; Monocytes 3 % (0-10); Neutrophil 91 % (42-75); Platelet Morphology Comment Appears Adequate
[2019-01-05 13:22] LABS: Sodium 118 mmol/L (136-145)
--- NOTE | 2019-01-05 15:35 | PRG ---
DATE OF SERVICE: 01/05/2019 SUBJECTIVE: The patient is seen and examined at the bedside. She is somewhat sleepy today, but she still complains about headache as always. Her appetite is very poor. She is not taking much orally, only just fluids and few bites of some food. OBJECTIVE: VITAL SIGNS: Blood pressure is 163/106, pulse is 84, temperature is 98.9, respiratory rate is 18, O2 saturation is 94% on room air. HEENT: Her right-sided craniotomy incision looks good. It is healing properly. Sclerae are nonicteric. Conjunctivae are pinkish. Oral mucosa is slightly dry. LUNGS: Clear. HEART: S1, S2 normal. ABDOMEN: Soft, nontender. Bowel sounds are present. EXTREMITIES: No clubbing, cyanosis, or edema. NEUROLOGICAL EXAMINATION: She is able to answer my simple questions. She follows my simple commands from time to time, but not all the time in a very limited fashion. Neurologically, she is able to move her extremities, but there is some weakness in the left lower extremity visible, especially in her foot, although upper extremities seem to be equal in strength. LABORATORY DATA: Showed white count of 23.6, hemoglobin 15.4, hematocrit 44.5, platelet count is 304,000. Chemistry shows sodium of 118, potassium 4.6, chloride 83, CO2 of 26, BUN 18, creatinine 0.66, calcium 10.0. IMPRESSION: 1. Brain tumor. 2. Hyponatremia secondary to syndrome of inappropriate antidiuretic hormone secretion. 3. Urinary tract infection. 4. History of uterine cancer. 5. Hypertensive urgency. 6. Chronic kidney disease stage 2. 7. Hypomagnesemia. 8. History of alcoholism in the past. PLAN: Her son asked for hospice care, so consult is in place and if Hospice does not accept her, the family is willing to gather some funds to send her to skilled unit with [facility]. Job ID: [id number]
[2019-01-05] MEDS ORDERED: Lorazepam 2 MG/ML VIAL ONE (16:11)
[2019-01-05] MEDS ORDERED: Lorazepam 2 MG/ML VIAL SLOW IVP PRN (17:10)
[2019-01-05] MEDS: levETIRAcetam In NaCl (Iso-Os) 1,000 MG in Premix Bag 1 BAG IVPB SCH (18:20)
[2019-01-05] MEDS: cefTRIAXone\\ROCEPHIN 1 GM in Sodium Chloride 0.9% 100 ML IVPB SCH (21:10)
--- NOTE | 2019-01-05 23:16 | RAD ---
EXAM: Single view of the chest HISTORY: Cough with possible aspiration COMPARISON: 04/30/2017 FINDINGS: Single view of the chest shows a normal sized cardiomediastinal silhouette. There is no fabby dence of consolidation, mass, or pleural effusion. The bones are unremarkable. IMPRESSION: No evidence of acute cardiopulmonary disease
[2019-01-05] MEDS ORDERED: Dexamethasone 4 mg/ml Vial SLOW IVP SCH (23:30)
[2019-01-06] MEDS: levETIRAcetam In NaCl (Iso-Os) 1,000 MG in Premix Bag 1 BAG IVPB SCH ×2 (05:49→18:14)
--- NOTE | 2019-01-06 06:28 | PRG ---
DATE OF SERVICE: 01/06/2019 I saw, Ms. Jazmine Spear in our oncology room this morning. I spoke to the son yesterday, he is making some arrangements to talk to hospice services today. If he elects to go with hospice care, we will continue our antiepileptic medications, taper off the steroids. However, so long as a decision has not been made, I think it is reasonable to start treating her for her fever, for high white count and her hyponatremia. Ms. Spear was incredibly warm to the touch and flushed this morning in spite of no temperature, no fever being recorded in her vitals. Blood pressures have been in the 120s to 140s. On examination, Ms. Spear is a little more lethargic. If I stimulate her, she complaints that "oh, I apologize" and she tells me "that is okay." She follows commands with her extremities. She is just a little more sleepy than she has been in previous examinations. Sodium of 118 yesterday is concerning, white blood cell count of 23.6 yesterday is concerning and her urine cultures are positive. Given her subjective fever this morning, flushed face and warm skin, in combination with high white count, I think sputum culture, blood cultures and urine cultures can all be repeated. Some intervention to treat her hyponatremia seems warranted to me. If she has a Alcaraz catheter in, then a small dose of mannitol to start the correction process faster than fluid restriction, but we can tighten our fluid restriction and avoid any hypotonic fluids. If the family makes a decision as to the aggressiveness of care, we can continue to tailor our treatments thereafter. Job ID: [id number] [facility]
[2019-01-06] MEDS: Dexamethasone 4 MG TAB PO SCH ×2 (08:00→16:58)
[2019-01-06] MEDS ORDERED: Dexamethasone 4 mg/ml Vial SLOW IVP SCH (08:00)
[2019-01-06] MEDS ORDERED: Dexamethasone 4 MG TAB PO SCH (08:00)
[2019-01-06] MEDS: Cyanocobalamin (Vitamin B-12) 1,000 MCG TAB PO SCH (09:00)
[2019-01-06] MEDS: Megestrol Acetate 800 MG/20 ML UDCUP PO SCH (09:00)
[2019-01-06] MEDS: Lisinopril 20 MG TAB PO SCH (09:00)
[2019-01-06] MEDS: Multivit, Therapeutic 1 TAB PO SCH (09:00)
[2019-01-06] MEDS: Pantoprazole 40 MG GRANULES PACKET PO SCH (09:00)
[2019-01-06] MEDS ORDERED: NIFEdipine XL 30 MG TAB PO SCH (09:00)
[2019-01-06] MEDS: Folic Acid 1 MG TAB PO SCH (09:00)
[2019-01-06] MEDS: Thiamine 100 MG TAB PO SCH (09:00)
[2019-01-06] MEDS: Carvedilol 6.25 MG TAB PO SCH ×2 (09:00→18:18)
[2019-01-06 09:20] LABS: #Monocytes 1.2 thou/uL (0.11-0.59); #Neutrophils 22.5 thou/uL (1.40-6.50); %Eosinophils 0.1 % (0.0-10.0); %Monocytes 4.7 % (0.0-10.0); %Neutrophils 91.2 % (42.0-75.0); Hemoglobin 15.4 g/dL (12.0-16.0); Mean Corpuscular HGB CONC 34.8 g/dL (32.0-36.0); Mean Corpuscular Hemoglobin 33.4 pg (27.0-31.0); Mean Platelet Volume 6.4 fL (7.4-10.4); Platelet Count 339 thou/uL (130-400); RBC Distribution Width 12.9 % (11.5-14.5); White Blood Cell (WBC) Count 24.6 thou/uL (4.8-10.8)
[2019-01-06 09:44] LABS: Band 4 % (5-11); Lymphocytes 8 % (21-51); Monocytes 5 % (0-10); Platelet Morphology Comment Appears Adequate; Vacuoles SLIGHT
[2019-01-06 09:45] LABS: ALT (SGPT) 27 U/L (8-55); AST (SGOT) 16 U/L (5-34); Albumin 3.9 g/dL (3.5-5.0); Alkaline Phosphatase 55 U/L (40-150); Anion Gap 15 mmol/L (10-20); BUN (Urea Nitrogen) 18 mg/dL (9.8-20.1); Bilirubin, Total 0.8 mg/dL (0.2-1.2); Calc. Creatinine Clearance 71 mL/min (70-130); Calcium 9.6 mg/dL (7.8-10.44); Carbon Dioxide 20 mmol/L (22-29); Chloride 85 mmol/L (98-107); Estimated GFR-MDRD 88; Globulin 2.8 g/dL (2.4-3.5); Glucose 125 mg/dL (70-105); Potassium 4.9 mmol/L (3.5-5.1); Protein, Total 6.7 g/dL (6.0-8.3)
[2019-01-06 09:49] LABS: Sodium 115 mmol/L (136-145)
[2019-01-06] MEDS: Morphine 2 MG/ML SYRINGE SLOW IVP PRN ×4 (14:10→20:14)
[2019-01-06] MEDS ORDERED: Dexamethasone 4 MG in Sodium Chloride 0.9% 50 ML IVPB SCH (15:00)
[2019-01-06 19:52] VITALS: BP 136/92; TEMP 97.4
--- NOTE | 2019-01-06 23:16 | DIS ---
DATE OF ADMISSION: 12/26/2018 DATE OF DISCHARGE: 01/06/2019 DIAGNOSES AT THE TIME OF ADMISSION: 1. New diagnosis of right frontal lobe mass with vasogenic edema. 2. History of uterine cancer. 3. Hyponatremia and hypomagnesemia. 4. Encephalopathy. 5. History of alcoholism. 6. Small pericardial effusion on CT. 7. Hypertension with hypertensive urgency. 8. Medication noncompliance. 9. Chronic kidney disease, stage 2. FINAL DIAGNOSES AT THE TIME OF DISCHARGE: 1. Brain tumor, glioblastoma stage IV, status post right frontal craniotomy and resection of the right frontal tumor at least partially. 2. Hyponatremia secondary to SIADH. 3. Urinary tract infection. 4. History of uterine cancer. 5. Hypertensive urgency. 6. Chronic kidney disease stage 2, improved. 7. Hypomagnesemia, improved. 8. History of alcoholism in the past. CONSULTANTS: 1. Dr. Puente, Neurosurgery. 2. Jen Escobedo NP, for Oncology Team. 3. Robert Ford MD, Radiation Oncology. 4. Kian Galindo MD, Neurosurgery. HOSPITAL COURSE: The patient is a 58-year-old female with history of hypertension, who presented to the hospital with elevated blood pressure along with lightheadedness and dizziness. She called EMS and she was brought to the emergency room. She denied any blurred vision, facial asymmetry, weakness, numbness of any of her extremities. There was no chest pain or palpitation, fever, chills, or recent fall. Her blood pressure at the time of EMS arrival was 220/140. She received nitroglycerin and was brought to the emergency room, stated that she was taking lisinopril on daily basis. At the time of emergency room evaluation, her magnesium was 1.4, BUN was 9, creatinine 0.82, white count was 6.0, hemoglobin 15.3, sodium was 130. Her MRI of the brain showed large frontal lobe mass with vasogenic edema. CT scan of the chest, abdomen and pelvis showed small pericardial effusion with stable right pelvic sidewall cystic mass. The patient got admitted to the hospital to Stroke Unit with IV Decadron along with PPI. Neurosurgery was consulted and her magnesium was replaced and Oncology Team was consulted. The patient was seen by Dr. Puente for neurosurgical consultation. He recommended debulking the tumor to get more time to be able to treat her appropriately and she was taken to the operating room and she had BrainLAB stereotactic assisted right frontal craniotomy and resection of the right frontal tumor. During operation, it was noted that there was some intraventricular extension of the tumor and tumor was most likely malignant. Pathology came back as glioblastoma grade 4. Postoperatively, the patient was transferred from the ICU to the floor since she became more metabolically stable. She was continued on steroids. The patient was seen by Dr. Ford for Radiation Oncology evaluation and possible radiation of her tumor. It was explained to her son that this is aggressive tumor, which invaded already ventricles and Oncology Team was consulted. Her hyponatremia was diagnosed as SIADH and she was placed on fluid restriction. She was continued on steroids and because of her blood pressure, she was on lisinopril and Coreg. Urine culture came back positive and she was started on ceftriaxone for urinary tract infection. Neurosurgery recommended some chemotherapy and radiation before the team can go in and work on the remnant of the tumor, but apparently she was not a candidate for any chemotherapy. All significant radiation to the point that she would be able to go ahead with those treatments and her son make decision about hospice care. The patient's status was changed to do not attempt resuscitation and she was accepted by [facility]. She is transferred to the facility tonight at 8:00 p.m. MEDICATIONS: To continue are: 1. Cipro 500 mg twice a day. 2. Coreg 12.5 mg twice a day. 3. Lisinopril 20 mg twice a day. 4. Megace 800 mg once a day. 5. Melatonin 3 mg at bedtime p.r.n. 6. Nifedipine 30 mg daily. 7. Keppra 750 mg twice a day. 8. P.r.n. medications like tramadol, Benadryl, Zofran, Ativan, bisacodyl, Tylenol, and Maalox. 9. Also, she will continue her Decadron 4 mg 3 times a day and further management of her medications will be done by hospice supervising MD. Job ID: [id number]
== END 2019-01-06 20:20 | disposition hospice, inpatient (51) | DRG 25 ==
LOC: ERS 09:04 → ERHOLD 11:03 → CCU 13:39 → 2SE 18:07 → CCU 12-28 08:48 → 2SE 12-30 10:37 → ONC 12-31 15:59
PROVIDERS: ADMIT Internal Medicine; ATTEND Internal Medicine
PROC: 00B00ZZ Excision of Brain, Open Approach (ICD-10-PCS; principal; 2018-12-28)
DX: C71.1 Malignant neoplasm of frontal lobe (principal); G93.6 Cerebral edema; I31.3 Pericardial effusion (noninflammatory); E22.2 Syndrome of inappropriate secretion of antidiuretic hormone; N39.0 Urinary tract infection, site not specified; G93.49 Other encephalopathy; Z66 Do not resuscitate; E87.5 Hyperkalemia; Z60.2 Problems related to living alone; E83.42 Hypomagnesemia; I16.0 Hypertensive urgency; I12.9 Hypertensive chronic kidney disease with stage 1 through stage 4 chronic kidney disease, or unspecified chronic kidney disease; N18.2 Chronic kidney disease, stage 2 (mild); R19.09 Other intra-abdominal and pelvic swelling, mass and lump; B96.20 Unspecified Escherichia coli [E. coli] as the cause of diseases classified elsewhere; Z79.899 Other long term (current) drug therapy; Z85.42 Personal history of malignant neoplasm of other parts of uterus; Z85.79 Personal history of other malignant neoplasms of lymphoid, hematopoietic and related tissues; Z91.14 Patient's other noncompliance with medication regimen; Z86.59 Personal history of other mental and behavioral disorders
CPT/HCPCS: 36415; 36416; 70450; 70553; 71045; 71260; 74177; 80048; 80053; 81001; 82306; 82533; 83735; 83930; 83935; 84100; 84300; 84443; 84484; 84550; 85014; 85018; 85025; 85049; 86850; 86900; 86901; 87040; 87077; 87086; 87186; 88307; 88331; 88334; 88341; 88342; 88360; 93005; 93306; 93970; 94640; 96374; 96375; A9577; C1713; C9113; J0131; J0360; J0690; J0696; J1100; J1200; J1953; J2001; J2060; J2270; J2405; J2550; J2704; J3010; J3475; J3490; J7050; J7620; J8540; Q0163; Q9966; Q9967